=== PATIENT | male | born 1965 | race Two or more races ===

== ENCOUNTER → 2020-06-27 10:53 | Outpatient (REF) | payer OTHER, SELFPAY ==
--- NOTE | 2020-06-27 11:00 | CA_ITS ---
Acquisition Time: 2020-06-27 11:09:14 Total Exercise Time: 00:08:54 Test Indications: cp Medications: see chart Protocol: SUZI Max HR: 173 BPM 104% of Pred: 165 BPM Max BP: 138/070 mmHG Max Work Load: 10.1 METS Exercise stress echo using Suzi protocol total of 8 minutes 54 seconds. Achieving a work level of maximum METS 10.1. with a maximal heart rate of 173. patient tolerated well denies any anginal symptoms. EKG without any arrhythmias, no ischemic changes in peak exercise or in recovery. EHO images taken at rest and immediatly after peak HR reached. Definity contrast used. Normotensive response to exercise. Test reviewed with Dr. Hobbs Referred By: Bernard Mendoza Overread By: Layla Diaz
== END ==
LOC: HO.CARD 10:53
PROVIDERS: Visit Provider Internal Medicine Cardiovascular Disease
DX: R07.9 Chest pain, unspecified (principal)
CPT/HCPCS: 93350; Q9957

== ENCOUNTER 2020-10-24 10:06 | Outpatient (REF) | payer OTHER, SELFPAY ==
[2020-10-24 11:27] LABS: Cholesterol 204 mg/dL; HDL Cholesterol 56 mg/dL; LDL Cholesterol Calculated 130 mg/dl; Triglycerides 94 mg/dL
== END 2020-10-24 10:07 | disposition home or self-care (01) ==
LOC: HO.LAB 10:06
PROVIDERS: PCP Internal Medicine; Visit Provider Internal Medicine Cardiovascular Disease
DX: E78.5 Hyperlipidemia, unspecified (principal)
CPT/HCPCS: 36415; 80061

== ENCOUNTER → 2020-10-29 08:59 | Outpatient (BNVA) | payer OTHER, SELFPAY | PROVIDERS: PCP Internal Medicine; Visit Provider Student in an Organized Health Care Education/Training Program | DX: M54.5 Low back pain (principal); T30.4 Corrosion of unspecified body region, unspecified degree | CPT/HCPCS: 99212 ==

== ENCOUNTER 2020-10-29 09:26 | Emergency (ER) | payer OTHER, SELFPAY ==
[2020-10-29 09:30] VITALS: BP 139/83; PULSE 74; RESP 16; TEMP 36.6; BMI 26.9
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
== END 2020-10-29 10:46 | disposition home or self-care (01) ==
PROVIDERS: Emergency Provider Emergency Medicine; PCP Internal Medicine
DX: T65.891A Toxic effect of other specified substances, accidental (unintentional), initial encounter (principal); T22.411A Corrosion of unspecified degree of right forearm, initial encounter; T32.0 Corrosions involving less than 10% of body surface; Y93.G3 Activity, cooking and baking; L03.113 Cellulitis of right upper limb; Y92.511 Restaurant or cafe as the place of occurrence of the external cause; Y99.0 Civilian activity done for income or pay
CPT/HCPCS: 99283

== ENCOUNTER 2021-04-14 08:55 | Outpatient (REF) | payer OTHER, SELFPAY ==
[2021-04-14 12:55] LABS: MANUAL DIFF FLAG NO
[2021-04-14 13:12] LABS: Basophils Percent Auto 0.2 % (0-2); Eosinophils Absolute Auto 0.1 X10*3/uL (0.0-0.4); Eosinophils Percent Auto 2.8 % (0-4); Hematocrit 42.4 % (42-52); Hemoglobin 14.1 g/dl (14.0-18.0); Imm Gran Abs Auto 0.02 X10*3/uL (0.00-0.03); Imm Gran Pct Auto 0.5 % (0.0-0.4); Lymphocytes Absolute Auto 1.4 X10*3/uL (1.2-4.9); Mean Corpuscular HGB Conc 33.3 g/dl (31.0-36.0); Mean Corpuscular Hemoglobin 29.5 pg (27.0-33.0); Mean Corpuscular Volume 88.7 fL (80-98); Mean Platelet Volume 10.7 fL (9.4-12.4); Monocytes Absolute Auto 0.4 X10*3/uL (0.1-1.2); Monocytes Percent Auto 8.3 % (2-11); Neutrophils Absolute Auto 2.5 X10*3/uL (2.0-8.3); Neutrophils Percent Auto 57.2 % (45-73); Platelet Count 178 X10*3/uL (160-400); Red Blood Count 4.78 X10*6/uL (4.60-5.80); Red Cell Distribution Width 12.7 % (11.0-16.0); White Blood Count 4.4 X10*3/uL (4.8-10.8)
[2021-04-14 13:43] LABS: Alanine Aminotransferase 41 U/L (0-40); Albumin Level 4.3 g/dL (3.5-5.0); Alkaline Phosphatase 61 U/L (39-117); Anion Gap 16 (12-20); Aspartate Amino Transferase 30 U/L (5-37); Bilirubin Total 0.4 mg/dL (0.0-1.0); Blood Urea Nitrogen 15 mg/dL (9-16); Calcium 9.3 mg/dL (8.4-10.2); Carbon Dioxide 22 mmol/L (22-29); Chloride 109 mmol/L (96-108); Estimated Glomerular Filt Rate > 60; Glucose Random 105 mg/dL (60-115); Potassium 4.6 mmol/L (3.3-5.1); Sodium 142 mmol/L (135-145)
== END 2021-04-14 08:56 | disposition home or self-care (01) ==
LOC: HO.LAB 08:55
PROVIDERS: PCP Internal Medicine; Visit Provider Nurse Practitioner
DX: K21.9 Gastro-esophageal reflux disease without esophagitis (principal); Z86.010 Personal history of colon polyps
CPT/HCPCS: 36415; 80053; 85025

== ENCOUNTER 2021-04-20 01:03 | Emergency (ER) | payer OTHER, SELFPAY ==
--- NOTE | ~2021-04-20 | XR_ITS ---
EXAMINATION: XR CHEST CLINICAL INFORMATION: Fever COMPARISON: None TECHNIQUE: Frontal view of the chest was obtained. FINDINGS: Cardiac leads overlie the chest. The lungs are well expanded. Mild bronchial wall thickening noted. There is no focal consolidation, edema, or effusion. No pneumothorax. The cardiomediastinal silhouette is within normal limits. No acute osseous abnormality. XR/XR chest 1V IMPRESSION: No dense consolidation. Bronchial wall thickening can be seen with a small airways process such as asthma or atypical/viral infection.
[2021-04-20 01:22] VITALS: BP 138/88; PULSE 118; RESP 24; TEMP 39.2; O2SAT 96; BMI 24.7
[2021-04-20 01:52] VITALS: BP 140/87; PULSE 110; RESP 20; TEMP 38.2; O2SAT 97
--- NOTE | 2021-04-20 02:00 | ED_ITS ---
HPI - Fever General Chief Complaint: Fever Stated Complaint: Migraine, body aches Time Seen by Provider: 04/20/21 01:48 Source: patient Mode of arrival: ambulatory Limitations: no limitations History of Present Illness HPI Narrative: Patient comes emergency room complaining of fever, chills, body aches, headache since this morning. Patient has tried to take ibuprofen, Tylenol [id number], patient complaining that his symptoms are gradually getting worse. Patient denies neck pain, no coughing, no vomiting or diarrhea, no abdominal pain. Patient states that he has mild dysuria Related Data Home Medications Medication Instructions Recorded Confirmed aspirin 81 mg tablet,delayed 81 mg PO DAILY 10/29/20 10/29/20 release Previous Rx's Medication Instructions Recorded simvastatin 20 mg tablet 20 mg PO BEDTIME #30 tab 06/13/20 cephalexin 500 mg capsule 500 mg PO BID 7 Days #14 cap 10/29/20 doxycycline hyclate 100 mg capsule 100 mg PO BID 7 Days #14 cap 10/29/20 mupirocin 2 % topical ointment 1 appl TOPICAL BID 7 Days #15 g 10/29/20 tizanidine 4 mg tablet 4 mg PO BEDTIME PRN #30 tab 11/28/20 bisacodyl 5 mg tablet,delayed 10 mg PO BEDTIME 2 Days #4 tab 04/14/21 release (Dulcolax (bisacodyl)) famotidine 40 mg tablet (Pepcid) 40 mg PO BEDTIME 30 Days #30 tab 04/14/21 peg 3350-electrolytes 236 240 ml PO Q10M 1 Days #4000 ml 04/15/21 gram-22.74 gram-6.74 gram-5.86 gram solution (Golytely) acetaminophen 650 mg 650 mg PO Q8H PRN #20 tab 04/20/21 tablet,extended release (Tylenol 8 Hour) azithromycin 250 mg tablet 250 mg PO DAILY #4 tab 04/20/21 Allergies Allergy/AdvReac Type Severity Reaction Status Date / Time raw vegetable [RAW VEGETABLE] Allergy Intermediate ITCHING Verified 10/29/20 09:03 Environmeental Allergies Allergy Unknown redness Uncoded 04/25/18 00:00 (Poll and itching Raw Veggies Allergy Unknown itching Uncoded 04/25/18 00:00 Review of Systems Review of Systems: Constitutional : No Weight loss, complaining of urine chills, generalized fatigue and generalized malaise ENT/Mouth : No Hearing loss, No Ear Pain, No Nasal Congestion, No Sinus Pain, No Hoarseness, No sore throat, No Rhinorrhea, No Swallowing Difficulty Eyes: No Eye Pain, No Swelling, No Redness, No Foreign Body, No Discharge, No Vision Changes Cardiovascular : No Chest Pain, No SOB, No Dyspnea on Exertion, No Orthopnea, No Edema, No Palpitations Respiratory : No Cough, No Sputum, No Wheezing, No Smoke Exposure, No Dyspnea Gastrointestinal : No Nausea, No Vomiting, No Diarrhea, No Constipation, No abdominal Pain, No Hematochezia, No Melena Genitourinary : no irregular bleeding, No Dysuria, No Urinary Frequency, No Hematuria, No Urinary Incontinence, No Urgency, No Flank Pain, No Urinary Flow Changes, No Hesitancy Musculoskeletal : Diffuse body aches Skin : No Skin Lesions, No rash Neuro : No Weakness, No Numbness, No Paresthesias, No Loss of Consciousness, No Dizziness, No Headache Psych : No Anxiety/Panic, No Depression, No SI/HI/AH/VH, No Social Issues, Heme/Lymph: No Bruising, No Bleeding,No Lymphadenopathy Endocrine : No Polyuria, No Polydipsia, No Temperature Intolerance PMFSH Past Medical History Medical History BPH (benign prostatic hyperplasia) Carpal tunnel syndrome Cholelithiasis Erectile dysfunction GERD (gastroesophageal reflux disease) Hypercholesterolemia Low back pain at multiple sites Mixed incontinence Obstructive sleep apnea Vitamin D deficiency Surgical History H/O carpal tunnel repair Hx of inguinal hernia repair Social History Social History Alcohol intake: current Advance Directives: No Advance Directives Information Provided: Yes Physical Exam Vital Signs: Vital Signs: Last Vital Signs Temp 100.7 F H 04/20/21 01:52 Pulse 110 H 04/20/21 01:52 Resp 20 04/20/21 01:52 BP 140/87 H 04/20/21 01:52 Pulse Ox 97 04/20/21 01:52 Body Mass Index 24.7 Const: Other: Appearance: Alert. Oriented X3. No acute distress. Eyes: Pupils equal, round and reactive to light. ENT: Pharynx normal. Neck: Normal inspection. Neck supple. No lymph nodes noted. No crepitus CVS: Normal heart rate and rhythm. Pulses normal. Normal S1 and S2 Respiratory: No respiratory distress. Breath sounds normal. No Wheezing. No rales Abdomen: Soft and nontender. No rigidity. No distention. good BS x4 Skin: Skin warm and dry. Normal skin color. Normal skin turgor. Extremities: No lower extremity edema. No Lacerations. No Rash Neuro: Oriented X 3. No motor deficit. No sensory deficit. Moving all extermities. No slurred speech. Course Course Course Narrative: I discussed the labs and imaging with the patient, it is likely that the patient has bronchitis which may be causing his symptoms. Given the severity of the symptoms will go ahead and start with antibiotics. First dose given here in the emergency room, azithromycin. MDM - Fever Lab Data Result diagrams: 04/20/21 02:03 04/20/21 02:03 Labs: Lab Results 04/20/21 04/20/21 04/20/21 Range/Units 02:03 02:03 02:03 WBC 11.2 H (4.8-10.8) X10*3/uL RBC 4.64 (4.60-5.80) X10*6/uL Hgb 14.1 (14.0-18.0) g/dl Hct 40.6 L (42-52) % MCV 87.5 (80-98) fL MCH 30.4 (27.0-33.0) pg MCHC 34.7 (31.0-36.0) g/dl RDW 13.0 (11.0-16.0) % Plt Count 168 (160-400) X10*3/uL MPV 10.9 (9.4-12.4) fL Immature Gran % (Auto) 0.4 (0.0-0.4) % Neut % (Auto) 87.3 H (45-73) % Lymph % (Auto) 5.1 L (20-40) % Culberson % (Auto) 7.0 (2-11) % Eos % (Auto) 0.1 (0-4) % Baso % (Auto) 0.1 (0-2) % Lymph # (Auto) 0.6 L (1.2-4.9) X10*3/uL [place] # (Auto) 0.8 (0.1-1.2) X10*3/uL Eos # (Auto) 0.0 (0.0-0.4) X10*3/uL Baso # (Auto) 0.0 (0.0-0.2) X10*3/uL Abs Immat Gran (auto) 0.05 H (0.00-0.03) X10*3/uL Absolute Neuts (auto) 9.8 H (2.0-8.3) X10*3/uL Absolute Nucleated RBC 0.000 (0.0-0.012) X10*3/uL Nucleated RBC % (auto) 0.0 (0.0-0.2) /100WBC Sodium 138 (135-145) mmol/L Potassium 3.6 D (3.3-5.1) mmol/L Chloride 103 (96-108) mmol/L Carbon Dioxide 24 (22-29) mmol/L Anion Gap 15 (12-20) BUN 14 (9-16) mg/dL Creatinine 0.97 (0.5-1.4) mg/dL Estim Creat Clear Calc 77.6 Estimated GFR > 60 Random Glucose 126 H (60-115) mg/dL Lactic Acid 0.7 (0.5-2.0) mmol/L Calcium 9.4 (8.4-10.2) mg/dL Total Bilirubin 1.4 H (0.0-1.0) mg/dL Direct Bilirubin 0.6 H (0.0-0.5) mg/dL AST 28 (5-37) U/L ALT 40 (0-40) U/L Alkaline Phosphatase 66 (39-117) U/L Total Protein 7.4 (6.5-8.0) g/dL Albumin 4.5 (3.5-5.0) g/dL Urine Color Urine Appearance Urine pH (5.0-8.0) Ur Specific Shallow[place] (1.005-1.025) Urine Protein (NEG-TRACE) MG/DL Urine Glucose (UA) (NEG) MG/DL Urine Ketones (NEG) MG/DL Urine Blood (NEG) Urine Nitrite (NEG) Ur Leukocyte Esterase (NEG) COVID-19 (ROSELIA) (Negative) COVID-19 Clin Com 04/20/21 04/20/21 Range/Units 02:04 03:58 WBC (4.8-10.8) X10*3/uL RBC (4.60-5.80) X10*6/uL Hgb (14.0-18.0) g/dl Hct (42-52) % MCV (80-98) fL MCH (27.0-33.0) pg MCHC (31.0-36.0) g/dl RDW (11.0-16.0) % Plt Count (160-400) X10*3/uL MPV (9.4-12.4) fL Immature Gran % (Auto) (0.0-0.4) % Neut % (Auto) (45-73) % Lymph % (Auto) (20-40) % Culberson % (Auto) (2-11) % Eos % (Auto) (0-4) % Baso % (Auto) (0-2) % Lymph # (Auto) (1.2-4.9) X10*3/uL [place] # (Auto) (0.1-1.2) X10*3/uL Eos # (Auto) (0.0-0.4) X10*3/uL Baso # (Auto) (0.0-0.2) X10*3/uL Abs Immat Gran (auto) (0.00-0.03) X10*3/uL Absolute Neuts (auto) (2.0-8.3) X10*3/uL Absolute Nucleated RBC (0.0-0.012) X10*3/uL Nucleated RBC % (auto) (0.0-0.2) /100WBC Sodium (135-145) mmol/L Potassium (3.3-5.1) mmol/L Chloride (96-108) mmol/L Carbon Dioxide (22-29) mmol/L Anion Gap (12-20) BUN (9-16) mg/dL Creatinine (0.5-1.4) mg/dL Estim Creat Clear Calc Estimated GFR Random Glucose (60-115) mg/dL Lactic Acid (0.5-2.0) mmol/L Calcium (8.4-10.2) mg/dL Total Bilirubin (0.0-1.0) mg/dL Direct Bilirubin (0.0-0.5) mg/dL AST (5-37) U/L ALT (0-40) U/L Alkaline Phosphatase (39-117) U/L Total Protein (6.5-8.0) g/dL Albumin (3.5-5.0) g/dL Urine Color YELLOW Urine Appearance CLEAR Urine pH 6.0 (5.0-8.0) Ur Specific [place] 1.025 (1.005-1.025) Urine Protein TRACE (NEG-TRACE) MG/DL Urine Glucose (UA) NEG (NEG) MG/DL Urine Ketones >=80 (NEG) MG/DL Urine Blood NEG (NEG) Urine Nitrite NEG (NEG) Ur Leukocyte Esterase NEG (NEG) COVID-19 (ROSELIA) Negative (Negative) COVID-19 Clin Com See Note Imaging Data Chest x-ray: Radiologist's impression: Cardiac leads overlie the chest. The lungs are well expanded. Mild bronchial wall thickening noted. There is no focal consolidation, edema, or effusion. No pneumothorax. The cardiomediastinal silhouette is within normal limits. No acute osseous abnormality. XR/XR chest 1V IMPRESSION: No dense consolidation. Bronchial wall thickening can be seen with a small airways process such as asthma or atypical/viral infection. Discharge Plan Discharge Clinical Impression: Bronchitis Patient Disposition: Home, Self-Care Instructions: Acute Bronchitis (ED) Additional Instructions: Please follow-up with your primary care physician tomorrow. If you have any worsening or new symptoms, please return to the emergency room or call 911 Prescriptions: New azithromycin 250 mg tablet 250 mg PO DAILY Qty: 4 RF: 0 acetaminophen [Tylenol 8 Hour] 650 mg tablet extended release 650 mg PO Q8H PRN (Reason: fever or pain) Qty: 20 RF: 0 No Action simvastatin 20 mg tablet 20 mg PO BEDTIME Qty: 30 RF: 11 tizanidine 4 mg tablet 4 mg PO BEDTIME PRN (Reason: muscle spasticity) Qty: 30 RF: 3 peg 3350-electrolytes [Golytely] 236-22.74-6.74 -5.86 gram recon soln 240 ml PO Q10M 1 Days Qty: 4000 RF: 0 doxycycline hyclate 100 mg capsule 100 mg PO BID 7 Days Qty: 14 RF: 0 cephalexin 500 mg capsule 500 mg PO BID 7 Days Qty: 14 RF: 0 mupirocin 2 % ointment 1 appl topical BID 7 Days Qty: 15 RF: 0 famotidine [Pepcid] 40 mg tablet 40 mg PO BEDTIME 30 Days Qty: 30 RF: 6 bisacodyl [Dulcolax (bisacodyl)] 5 mg tablet,delayed release (DR/EC) 10 mg PO BEDTIME 2 Days Qty: 4 RF: 0 aspirin 81 mg tablet,delayed release (DR/EC) 81 mg PO DAILY RF: 0
[2021-04-20] MEDS: 0.9 % Sodium Chloride 1,000 ML 999 ML IVCONT (02:11)
[2021-04-20 02:18] LABS: Basophils Percent Auto 0.1 % (0-2); Eosinophils Percent Auto 0.1 % (0-4); Hematocrit 40.6 % (42-52); Hemoglobin 14.1 g/dl (14.0-18.0); Imm Gran Abs Auto 0.05 X10*3/uL (0.00-0.03); Imm Gran Pct Auto 0.4 % (0.0-0.4); Lymphocytes Absolute Auto 0.6 X10*3/uL (1.2-4.9); Lymphocytes Percent Auto 5.1 % (20-40); MANUAL DIFF FLAG NO; Mean Corpuscular HGB Conc 34.7 g/dl (31.0-36.0); Mean Corpuscular Hemoglobin 30.4 pg (27.0-33.0); Mean Corpuscular Volume 87.5 fL (80-98); Mean Platelet Volume 10.9 fL (9.4-12.4); Monocytes Absolute Auto 0.8 X10*3/uL (0.1-1.2); Neutrophils Absolute Auto 9.8 X10*3/uL (2.0-8.3); Neutrophils Percent Auto 87.3 % (45-73); Platelet Count 168 X10*3/uL (160-400); Red Blood Count 4.64 X10*6/uL (4.60-5.80); White Blood Count 11.2 X10*3/uL (4.8-10.8)
[2021-04-20 02:36] LABS: Lactic Acid 0.7 mmol/L (0.5-2.0)
[2021-04-20 02:36] LABS: COVID-19 Test Negative (Negative)
[2021-04-20] MEDS: Acetaminophen 325 MG TABLET 650 MG PO (02:39)
[2021-04-20] MEDS: Ketorolac Tromethamine 15 MG/ML VIAL 30 MG IVPUSH (02:39)
[2021-04-20 02:42] LABS: Alanine Aminotransferase 40 U/L (0-40); Albumin Level 4.5 g/dL (3.5-5.0); Alkaline Phosphatase 66 U/L (39-117); Anion Gap 15 (12-20); Aspartate Amino Transferase 28 U/L (5-37); Bilirubin Direct 0.6 mg/dL (0.0-0.5); Bilirubin Total 1.4 mg/dL (0.0-1.0); Blood Urea Nitrogen 14 mg/dL (9-16); Calcium 9.4 mg/dL (8.4-10.2); Carbon Dioxide 24 mmol/L (22-29); Chloride 103 mmol/L (96-108); Creatinine Clr Calc Pharmacy 77.6; Estimated Glomerular Filt Rate > 60; Glucose Random 126 mg/dL (60-115); Potassium 3.6 mmol/L (3.3-5.1); Sodium 138 mmol/L (135-145); Total Protein 7.4 g/dL (6.5-8.0)
[2021-04-20 04:06] LABS: Appearance Urine CLEAR; Color Urine YELLOW; Glucose Urine UA NEG (NEG); Leukocyte Esterase Urine NEG (NEG); Nitrite Urine NEG (NEG); Specific Gravity - Urine 1.025 (1.005-1.025); Urine Blood NEG (NEG); Urine Ketones >=80 MG/DL (NEG); Urine Protein TRACE MG/DL (NEG-TRACE)
[2021-04-20] MEDS: Azithromycin 500 MG TABLET PO (05:25)
== END 2021-04-20 05:35 | disposition home or self-care (01) ==
PROVIDERS: Emergency Provider Emergency Medicine
DX: J40 Bronchitis, not specified as acute or chronic (principal); R50.9 Fever, unspecified; Z79.82 Long term (current) use of aspirin; Z79.899 Other long term (current) drug therapy; Z20.822 Contact with and (suspected) exposure to COVID-19
CPT/HCPCS: 36415; 71045; 80048; 80076; 81003; 83605; 85025; 87040; 87635; 96365; 96375; 99284; J1885

== ENCOUNTER 2021-06-11 07:45 | Outpatient (REF) | payer OTHER, SELFPAY ==
--- NOTE | ~2021-06-11 | US_ITS ---
EXAMINATION: US ABDOMEN COMPLETE CLINICAL INFORMATION: Abnormal findings of blood chemistry. Cholelithiasis. COMPARISON: Ultrasound abdomen 12/28/2016 and 08/08/2012. TECHNIQUE: Real-time imaging of the abdominal viscera. FINDINGS: PANCREAS: Not well visualized due to bowel gas ABDOMINAL AORTA: The midabdominal aorta is not well visualized. The proximal and distal abdominal aorta is normal in caliber. INFERIOR VENA CAVA: Visualized portions are normal. LIVER: Normal. The liver is normal in size. The liver contour is normal. Parenchymal echogenicity is normal. No focal hepatic lesion. There is no intrahepatic biliary duct dilatation seen. GALLBLADDER: The gallbladder is upper normal in size measuring 9.2 x 2.8 x 4.5 cm in dimension.. Multiple mobile gallstones are present. No evidence of gallbladder wall thickening or pericholecystic fluid. COMMON BILE DUCT: Normal in caliber measuring 0.5 cm in diameter. RIGHT KIDNEY: There is a small 4 mm cyst in the lower pole. No hydronephrosis or renal calculi. The kidney measures 10.6 cm in maximum dimension. LEFT KIDNEY: Normal. No hydronephrosis. No renal calculi or focal parenchymal lesions. The kidney measures 10.9 cm in maximum dimension. SPLEEN: Normal. The spleen measures 10.9 cm in maximum dimension. FREE FLUID: None. US/US abdomen complete IMPRESSION: Upper normal-size gallbladder and gallstones. This is similar to previous exam. Limited visualization of the pancreas. Small right renal cyst.
== END 2021-06-11 07:46 | disposition home or self-care (01) ==
LOC: HO.US 07:45
PROVIDERS: Visit Provider Internal Medicine
DX: K80.20 Calculus of gallbladder without cholecystitis without obstruction (principal); R79.89 Other specified abnormal findings of blood chemistry
CPT/HCPCS: 76700

== ENCOUNTER 2021-06-12 12:27 | Outpatient (REF) | payer OTHER, SELFPAY ==
--- NOTE | ~2021-06-12 | XR_ITS ---
EXAMINATION: XR knee LT 3V CLINICAL INFORMATION: Pain COMPARISON: None available at the time of this dictation. TECHNIQUE: frontal, lateral, tunnel and patella sunrise views FINDINGS: BONES: No fracture or dislocation is present. JOINTS: Narrowing of joint spaces, irregularity of the articular surfaces especially the lateral femoral condyle, and developed osteophytes from the edges of articular surfaces suggest degenerative osteoarthritis. 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
== END 2021-06-12 12:28 | disposition home or self-care (01) ==
LOC: HO.XRAY 12:27
PROVIDERS: PCP Internal Medicine; Visit Provider Nurse Practitioner Family
DX: M25.562 Pain in left knee (principal); M54.50 Low back pain, unspecified; E78.00 Pure hypercholesterolemia, unspecified; E55.9 Vitamin D deficiency, unspecified; Z87.891 Personal history of nicotine dependence; J30.2 Other seasonal allergic rhinitis; Z91.018 Allergy to other foods; Z79.899 Other long term (current) drug therapy
CPT/HCPCS: 73562; 99212

== ENCOUNTER 2021-06-16 08:47 | Day surgery (SDC) | payer OTHER, SELFPAY ==
[2021-06-11 09:32] VITALS: BMI 26.7
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
--- NOTE | 2021-06-16 09:28 | MHC.SHP ---
Pre-Procedural Eval Section A Date of Service: 06/16/21 Section B Chief Complaint: tubular adenoma of colon Relevant Family History (Specify if Yes): No Relevant Social History: None Present Medications: see Short Stay Collaborative assessment Medical History: Significant History (BPH (benign prostatic hyperplasia) Carpal tunnel syndrome Cholelithiasis Erectile dysfunction GERD (gastroesophageal reflux disease) Hypercholesterolemia Low back pain at multiple sites Mixed incontinence Obstructive sleep apnea Vitamin D deficiency) History of Previous Operations: Relevant previous surgery/procedure and date(s) (H/O carpal tunnel repair Hx of colonoscopy Hx of inguinal hernia repair) Allergies: Allergies Allergy/AdvReac Type Severity Reaction Status Date / Time raw vegetable [RAW VEGETABLE] Allergy Intermediate ITCHING Verified 06/12/21 12:46 Seasonal Allergies Allergy Intermediate Nasal Verified 06/12/21 12:46 congestion Review of Systems Sugical H&P ROS: Negative: Constitution, Cardiovascular, Respiratory, Neurological, Psychiatric, Hem-Onc, Allergic/Immunologic, Gastrointestinal, Genitourinary, Musculoskeletal, Integumentary, Endocrine and Eyes/Ears/Nose/Throat Exam Surgical H&P Exam: Normal: HEENT, Normal: Heart, Normal: Lungs, Normal: Extremities, Normal: Abdomen, Normal: Skin and Normal: Neurological Plan Diagnosis/Plan: Unchanged I have reviewed the history and physical and performed a pertinent physical examination on my patient. No changes have occurred unless specified.
--- NOTE | 2021-06-16 10:30 | PM.OP ---
Brief Operative Note Date of Service: 06/16/21 Pre-op diagnosis: hx of polyps Post-op diagnosis: same Procedure: see op note Surgeon: Tate Wheeler MD Anesthesia: MAC Was an Pearl Glue Operator used for this Procedure?: No Estimated blood loss (mL): 0 Condition: stable Disposition: PACU
--- NOTE | 2021-06-16 10:30 | W.PM.OPN ---
Operative Note Operative Note Date of Service: 06/16/21 Narrative: Operative Information Procedure Description: Colonoscopy COLONOSCOPY Instrument: Olympus variable stiffness pediatric scope 190L Colonoscopy Monitoring: Vital signs and clinical assessment, continuous EKG monitoring, Pulse oximetry, Carbon Dioxide monitoring and blood pressure monitoring were done throughout the procedure. Colon withdrawal time was 6 minutes. Procedure: The patient was placed in the left lateral decubitis position and pre-procedure medications were administered. After a digital rectal examination of the ano-rectum, the video colonoscope was inserted into the rectum and advanced through the colon to the cecum/TI. The colonoscope was slowly withdrawn in a retrograde panoramic fashion and the colon mucosa was carefully examined including a retroflexed view of the rectum. Findings and interventions are described below. Procedure Difficulty: easy Findings: Terminal Ileum-normal Cecum:normal Ascending Colon: normal Transverse Colon -normal Descending Colon:normal Sigmoid Colon: scattered diverticula Rectum: Retroflexion with medium sized internal hemorrhoids, grade II Anorectum - normal Colon preparation: [place] Bowel Preparation Scale Right colon; 2 Transverse colon: 1 Left colon; 1 (0 = Unprepared colon segment with mucosa not seen due to solid stool that cannot be cleared. 1 = Portion of mucosa of the colon segment seen, but other areas of the colon segment not well seen due to staining, residual stool and/or opaque liquid. 2 = Minor amount of residual staining, small fragments of stool and/or opaque liquid, but mucosa of colon segment seen well. 3 = Entire mucosa of colon segment seen well with no residual staining, small fragments of stool or opaque liquid) Impression and Post Procedure Diagnosis: internal hemorrhoids diverticular disease Plan: High fiber diet leaflet Avoid straining at stool, epsom salts and sitz bath, anusol supps or cream Repeat Colonoscopy in 1-2 years due to prep or earlier if clinically indicated, carefully review prep instructions for next time Above findings were reviewed with the patient and relevant handouts were provided if indicated.
[2021-06-16 10:39] VITALS: BP 108/73; PULSE 67; RESP 16; TEMP 36.1; O2SAT 100
[2021-06-16 10:54] VITALS: BP 134/86; PULSE 66; RESP 16; TEMP 36.1; O2SAT 100
--- NOTE | 2021-06-16 12:55 | HO.POSTANES ---
Post Anesthesia Evaluation Post Anesthesia Evaluation Vital Signs: Vital Signs Temp Pulse Resp BP Pulse Ox 06/16/21 10:54 97 F 66 16 134/86 100 06/16/21 10:39 97 F 67 16 108/73 100 Anesthesia: Monitored Mental Status: Awake Pain Control: Satisfactory Nausea/Vomiting: None Hydration: Adequate Anesthesia-Related Issues: No Anes. Related Issues
== END 2021-06-16 11:45 | disposition home or self-care (01) ==
PROVIDERS: Visit Provider Internal Medicine Gastroenterology
PROC: 0DJD8ZZ Inspection of Lower Intestinal Tract, Via Natural or Artificial Opening Endoscopic (ICD-10-PCS; CPT 45378; principal; 2021-06-16 10:00)
DX: Z12.11 Encounter for screening for malignant neoplasm of colon (principal); K57.30 Diverticulosis of large intestine without perforation or abscess without bleeding; K64.1 Second degree hemorrhoids; Z86.010 Personal history of colon polyps
CPT/HCPCS: 45378

== ENCOUNTER 2021-06-20 07:23 | Outpatient (REF) | payer OTHER, SELFPAY ==
--- NOTE | ~2021-06-20 | MR_ITS ---
EXAMINATION: MR LUMBAR SPINE WITHOUT CONTRAST CLINICAL INFORMATION: Lower back pain with bending. Difficulty standing up. Left leg numbness, toe tingling/paresthesias. COMPARISON: Lumbar spine radiographs dated 04/25/2020 TECHNIQUE: MRI of the lumbar spine was obtained using routine sequences without contrast. FINDINGS: VERTEBRAL BODIES AND PARASPINAL STRUCTURES: Normal vertebral body alignment. The lumbar lordosis is maintained. No acute fracture or subluxation. No loss of vertebral body height. Loss of intervertebral disc height with disc desiccation at L3-S1. Decreased T1/T2 marrow signal throughout the visualized osseous structures, which can be seen in the setting of marrow reconversion. This can be seen in response to physiologic stimuli such as obesity, cigarette smoking, and heavy athletic training or a pathologic condition such as chronic hemolytic anemia and marrow replacing disorders. No marrow edema to suggest acute osseous injury. The visualized paraspinal soft tissues are unremarkable. CONUS MEDULLARIS AND CAUDA EQUINA: Normal, terminating at the level of L1. SPINAL LEVELS: T12-L1: No significant disc bulge. No central canal or neural foraminal stenosis. L1-L2: No significant disc bulge. No central canal or neural foraminal stenosis. L2-L3: Shallow disc bulge with bilateral facet arthropathy causing mild bilateral neural foraminal stenosis. L3-L4: Broad-based disc bulge with a shallow posterior central disc protrusion as well as bilateral facet arthropathy causing minimal central canal as well as mild bilateral neural foraminal stenosis. L4-L5: Broad-based disc bulge, slightly asymmetric to the right with bilateral facet arthropathy causing minimal central canal as well as mild bilateral neural foraminal stenosis. L5-S1: Shallow broad-based disc bulge with posterior annular fissuring and bilateral facet arthropathy causing mild bilateral neural foraminal stenosis. MR/MR lumbar spine wo con IMPRESSION: 1. No acute fracture or subluxation. Decreased T1/T2 marrow signal throughout the visualized osseous structures, which can be seen in the setting of marrow reconversion. This can be seen in response to physiologic stimuli such as obesity, cigarette smoking, and heavy athletic training or a pathologic condition such as chronic hemolytic anemia and marrow replacing disorders. 2. Mild broad-based disc bulge at L3-L4 with a shallow posterior central disc protrusion and bilateral facet arthropathy which causes minimal central canal and mild bilateral neural foraminal stenosis. 3. Broad-based disc bulge at L4-L5 which is slightly asymmetric to the right. Along with bilateral facet arthropathy, this causes minimal central canal and mild bilateral neural foraminal stenosis. 4. Shallow disc bulges at L2-L3 and L5-S1 with bilateral facet arthropathy causing mild bilateral neural foraminal stenosis.
== END 2021-06-20 07:24 | disposition home or self-care (01) ==
LOC: HO.MRI 07:23
PROVIDERS: Visit Provider Nurse Practitioner Family
DX: M54.50 Low back pain, unspecified (principal)
CPT/HCPCS: 72148

== ENCOUNTER → 2021-07-08 09:39 | Outpatient (BNVA) | payer OTHER, SELFPAY | PROVIDERS: PCP Internal Medicine; Visit Provider Nurse Practitioner | DX: K21.9 Gastro-esophageal reflux disease without esophagitis (principal); D12.6 Benign neoplasm of colon, unspecified | CPT/HCPCS: 99212 ==

== ENCOUNTER 2021-08-04 08:27 | Outpatient (REF) | payer OTHER, SELFPAY ==
--- NOTE | ~2021-08-04 | XR_ITS ---
EXAMINATION: XR HIP, LEFT CLINICAL INFORMATION: Primary osteoarthritis of the left hip COMPARISON: None TECHNIQUE: Two views of the left hip. FINDINGS: There is no fracture or dislocation. The femoral head articulates appropriately with its acetabulum. Marginal osteophytes are present at the left hip with sclerosis along the acetabular margin. The left hemipelvis is intact. XR/XR hip LT min 2V IMPRESSION: Mild degenerative changes of the left hip.
== END 2021-08-04 08:28 | disposition home or self-care (01) ==
LOC: HO.XRAY 08:27
PROVIDERS: PCP Internal Medicine; Visit Provider Anesthesiology
DX: M16.12 Unilateral primary osteoarthritis, left hip (principal); M47.816 Spondylosis without myelopathy or radiculopathy, lumbar region; G89.4 Chronic pain syndrome; E55.9 Vitamin D deficiency, unspecified; Z87.891 Personal history of nicotine dependence; J30.2 Other seasonal allergic rhinitis; Z91.018 Allergy to other foods
CPT/HCPCS: 73502; 99202

== ENCOUNTER → 2021-08-18 16:25 | Outpatient (BNVA) | payer OTHER, SELFPAY | PROVIDERS: PCP Internal Medicine; Visit Provider Anesthesiology | DX: M47.816 Spondylosis without myelopathy or radiculopathy, lumbar region (principal); M16.12 Unilateral primary osteoarthritis, left hip; G89.4 Chronic pain syndrome | CPT/HCPCS: 99212 ==

== ENCOUNTER → 2021-09-16 08:57 | Outpatient (BNVA) | payer OTHER, SELFPAY | PROVIDERS: PCP Internal Medicine; Visit Provider Nurse Practitioner Family | DX: M25.562 Pain in left knee (principal); M54.50 Low back pain, unspecified | CPT/HCPCS: 99212 ==

== ENCOUNTER → 2021-10-07 10:50 | Outpatient (BNVA) | payer OTHER, SELFPAY | PROVIDERS: PCP Internal Medicine; Referring Provider Internal Medicine; Visit Provider Nurse Practitioner | DX: K21.9 Gastro-esophageal reflux disease without esophagitis (principal); K80.20 Calculus of gallbladder without cholecystitis without obstruction; D12.6 Benign neoplasm of colon, unspecified | CPT/HCPCS: 99212 ==

== ENCOUNTER 2021-10-21 06:09 | Outpatient (REF) | payer OTHER, SELFPAY ==
--- NOTE | ~2021-10-21 | FL_ITS ---
EXAMINATION: XR FLUOROSCOPY WITH IMAGES CLINICAL INFORMATION: Left hip arthritis COMPARISON: None. TECHNIQUE: Fluoroscopy performed by stick into the. Fluoroscopy time: 0.3 minutes DAP: 5 Gycm2 Images: 1 FINDINGS: Images demonstrate needle placement and contrast injection of the of the left hip joint. FL/FL guidance in treatment room IMPRESSION: Fluoroscopy guidance for pain management procedure.
== END 2021-10-21 06:10 | disposition home or self-care (01) ==
LOC: HO.RADIR 06:09
PROVIDERS: Visit Provider Anesthesiology
DX: M16.12 Unilateral primary osteoarthritis, left hip (principal); M47.816 Spondylosis without myelopathy or radiculopathy, lumbar region; G89.4 Chronic pain syndrome
CPT/HCPCS: 20610; J3300; Q9967

== ENCOUNTER → 2021-11-19 10:04 | Outpatient (BNVA) | payer OTHER, SELFPAY | PROVIDERS: PCP Internal Medicine; Visit Provider Anesthesiology | DX: M47.816 Spondylosis without myelopathy or radiculopathy, lumbar region (principal); M16.12 Unilateral primary osteoarthritis, left hip; G89.4 Chronic pain syndrome | CPT/HCPCS: 99212 ==

== ENCOUNTER 2022-01-01 09:14 | Outpatient (REF) | payer OTHER, SELFPAY ==
[2022-01-01 09:41] LABS: MANUAL DIFF FLAG NO
[2022-01-01 10:04] LABS: Basophils Percent Auto 0.5 % (0-2); Eosinophils Absolute Auto 0.2 X10*3/uL (0.0-0.4); Eosinophils Percent Auto 3.7 % (0-4); Hemoglobin 14.2 g/dl (14.0-18.0); Imm Gran Abs Auto 0.01 X10*3/uL (0.00-0.03); Imm Gran Pct Auto 0.2 % (0.0-0.4); Lymphocytes Absolute Auto 1.4 X10*3/uL (1.2-4.9); Lymphocytes Percent Auto 35.5 % (20-40); Mean Corpuscular Hemoglobin 29.5 pg (27.0-33.0); Mean Corpuscular Volume 89.4 fL (80.0-98.0); Mean Platelet Volume 10.6 fL (9.4-12.4); Monocytes Absolute Auto 0.4 X10*3/uL (0.1-1.2); Monocytes Percent Auto 10.3 % (2-11); Neutrophils Percent Auto 49.8 % (45-73); Platelet Count 184 X10*3/uL (160-400); Red Blood Count 4.81 X10*6/uL (4.60-5.80); Red Cell Distribution Width 12.6 % (11.0-16.0); White Blood Count 4.1 X10*3/uL (4.8-10.8)
[2022-01-01 10:55] LABS: Estimated Average Glucose 111 mg/dL; Hemoglobin A1c % 5.5 %
[2022-01-01 11:00] LABS: Appearance Urine CLEAR; Color Urine YELLOW; Glucose Urine UA NEG (NEG); Leukocyte Esterase Urine NEG (NEG); Nitrite Urine NEG (NEG); Specific Gravity - Urine 1.025 (1.005-1.025); Urine Blood NEG (NEG); Urine Ketones NEG (NEG); Urine Protein NEG (NEG-TRACE)
[2022-01-01 11:01] LABS: Alanine Aminotransferase 43 U/L (0-40); Albumin Level 4.2 g/dL (3.5-5.0); Alkaline Phosphatase 56 U/L (39-117); Anion Gap 12 (12-20); Aspartate Amino Transferase 36 U/L (5-37); Bilirubin Total 0.8 mg/dL (0.0-1.0); Blood Urea Nitrogen 17 mg/dL (9-16); Calcium 9.4 mg/dL (8.4-10.2); Carbon Dioxide 29 mmol/L (22-29); Chloride 104 mmol/L (96-108); Cholesterol 201 mg/dL; Estimated Glomerular Filt Rate > 60; Glucose Random 98 mg/dL (60-115); HDL Cholesterol 48 mg/dL; LDL Cholesterol Calculated 135 mg/dl; Potassium 4.9 mmol/L (3.3-5.1); Sodium 140 mmol/L (135-145); Total Protein 6.9 g/dL (6.5-8.0); Triglycerides 94 mg/dL
[2022-01-01 11:24] LABS: Free T4 (Free Thyroxine) 1.14 ng/dL (0.71-1.85); Prostate Specific Antigen Scr 2.45 ng/mL (<0.05-4.0); Thyroid Stimulating Hormone 1.27 uIU/mL (0.32-4.0)
[2022-01-01 11:31] LABS: Folate 13.3 ng/mL (> or = 4.0); Vitamin B12 452 pg/mL (200-900)
[2022-01-01 12:46] LABS: Squamous Epithelial Cell Urine TRACE /LPF
[2022-01-01 12:47] LABS: RBC Urine 0 /HPF (0); WBC Urine 0-2 /HPF (0-4)
== END 2022-01-01 09:15 | disposition home or self-care (01) ==
LOC: HO.LAB 09:14
PROVIDERS: PCP Internal Medicine; Visit Provider Internal Medicine
DX: E78.00 Pure hypercholesterolemia, unspecified (principal); R35.0 Frequency of micturition
CPT/HCPCS: 36415; 80053; 80061; 81001; 82607; 82746; 83036; 84153; 84439; 84443; 85025

== ENCOUNTER → 2022-03-16 07:53 | Outpatient (BNVA) | payer OTHER, SELFPAY | PROVIDERS: PCP Internal Medicine; Visit Provider Nurse Practitioner Family | DX: M25.562 Pain in left knee (principal); M47.816 Spondylosis without myelopathy or radiculopathy, lumbar region; M16.12 Unilateral primary osteoarthritis, left hip | CPT/HCPCS: 99212 ==

== ENCOUNTER → 2022-04-07 08:24 | Outpatient (BNVA) | payer OTHER, SELFPAY | PROVIDERS: PCP Internal Medicine; Visit Provider Nurse Practitioner | DX: K21.9 Gastro-esophageal reflux disease without esophagitis (principal); K80.20 Calculus of gallbladder without cholecystitis without obstruction; D12.6 Benign neoplasm of colon, unspecified | CPT/HCPCS: 99212 ==

== ENCOUNTER → 2022-10-06 08:25 | Outpatient (BNVA) | payer OTHER, SELFPAY | PROVIDERS: PCP Internal Medicine; Visit Provider Nurse Practitioner | DX: Z01.818 Encounter for other preprocedural examination (principal); K21.9 Gastro-esophageal reflux disease without esophagitis; R13.10 Dysphagia, unspecified; Z86.010 Personal history of colon polyps | CPT/HCPCS: 99212 ==

== ENCOUNTER 2022-10-21 09:48 | Outpatient (REF) | payer OTHER, SELFPAY ==
--- NOTE | ~2022-10-21 | XR_ITS ---
EXAMINATION: XR BILATERAL HIPS WITH AP PELVIS CLINICAL INFORMATION: Bilateral pain. COMPARISON: Radiograph of the left hip 08/04/2021. TECHNIQUE: AP view of the pelvis and single views of each hip were obtained. FINDINGS: No acute fracture or subluxation. SI joints are symmetric. Pubic symphysis is maintained. Mild to moderate joint space narrowing with subcortical sclerosis and marginal osteophytes in the left greater than right hips. No abnormal soft tissue calcifications. XR/XR hips RENNY min 3V IMPRESSION: 1. No acute fracture or subluxation. 2. Mild to moderate degenerative osteoarthritis of the left greater than right hips.
== END 2022-10-21 09:49 | disposition home or self-care (01) ==
LOC: HO.XRAY 09:48
PROVIDERS: PCP Internal Medicine; Visit Provider Nurse Practitioner Family
DX: M25.552 Pain in left hip (principal)
CPT/HCPCS: 73522

== ENCOUNTER 2023-01-12 08:11 | Outpatient (REF) | payer OTHER, SELFPAY ==
[2023-01-12 08:47] LABS: MANUAL DIFF FLAG NO
[2023-01-12 09:17] LABS: Basophils Percent Auto 0.2 % (0-2); Eosinophils Absolute Auto 0.2 X10*3/uL (0.0-0.4); Eosinophils Percent Auto 3.2 % (0-4); Hematocrit 41.1 % (42.0-52.0); Hemoglobin 13.9 g/dl (14.0-18.0); Imm Gran Abs Auto 0.02 X10*3/uL (0.00-0.03); Imm Gran Pct Auto 0.3 % (0.0-0.4); Lymphocytes Absolute Auto 1.1 X10*3/uL (1.2-4.9); Lymphocytes Percent Auto 17.2 % (20-40); Mean Corpuscular HGB Conc 33.8 g/dl (31.0-36.0); Mean Corpuscular Hemoglobin 29.6 pg (27.0-33.0); Mean Corpuscular Volume 87.6 fL (80.0-98.0); Mean Platelet Volume 10.8 fL (9.4-12.4); Monocytes Absolute Auto 0.7 X10*3/uL (0.1-1.2); Monocytes Percent Auto 10.6 % (2-11); Neutrophils Absolute Auto 4.5 x10*3/uL (2.0-8.3); Neutrophils Percent Auto 68.5 % (45-73); Platelet Count 165 X10*3/uL (160-400); Red Blood Count 4.69 X10*6/uL (4.60-5.80); Red Cell Distribution Width 13.1 % (11.0-16.0); White Blood Count 6.5 X10*3/uL (4.8-10.8)
[2023-01-12 09:55] LABS: Alanine Aminotransferase 40 U/L (0-40); Albumin Level 4.2 g/dL (3.5-5.0); Alkaline Phosphatase 64 U/L (39-117); Anion Gap 9 (12-20); Aspartate Amino Transferase 29 U/L (5-37); Bilirubin Total 0.7 mg/dL (0.0-1.0); Blood Urea Nitrogen 12 mg/dL (9-16); Calcium 8.9 mg/dL (8.4-10.2); Carbon Dioxide 29 mmol/L (22-29); Chloride 105 mmol/L (96-108); Cholesterol 171 mg/dL; Estimated Glomerular Filt Rate > 60; Glucose Random 100 mg/dL (60-115); HDL Cholesterol 47 mg/dL; LDL Cholesterol Calculated 113 mg/dl; Potassium 4.2 mmol/L (3.3-5.1); Sodium 139 mmol/L (135-145); Total Protein 6.6 g/dL (6.5-8.0); Triglycerides 57 mg/dL
[2023-01-12 10:27] LABS: Folate 15.9 ng/mL (> or = 4.0); Free T4 (Free Thyroxine) 1.01 ng/dL (0.71-1.85); Thyroid Stimulating Hormone 1.39 uIU/mL (0.32-4.0); Vitamin B12 555 pg/mL (200-900)
== END 2023-01-12 08:12 | disposition home or self-care (01) ==
LOC: HO.LAB 08:11
PROVIDERS: PCP Internal Medicine; Visit Provider Internal Medicine
DX: Z12.5 Encounter for screening for malignant neoplasm of prostate (principal); E78.00 Pure hypercholesterolemia, unspecified
CPT/HCPCS: 36415; 80053; 80061; 82607; 82746; 84153; 84439; 84443; 85025

== ENCOUNTER 2023-04-06 08:23 | Outpatient (AMB) | payer OTHER, SELFPAY ==
--- NOTE | 2023-04-06 08:39 | MHC.OFFVIS ---
Intake Vital Signs 04/06/23 08:45 Height 5 ft 3 in Weight 157 lb 6.561 oz BMI 27.9 BP 124/84 Blood Pressure Location Rt brachial Position Sitting Pulse 77 Intake Visit Reasons: 6 month follow up Intake Note: Jack presents in the office for GERD as a 6 month follow up. CC: He reports occasional heartburn when drinking soda or acidic foods. Denies other GI symptoms. Welfare Interviewer Required: No Allergies raw vegetable [RAW VEGETABLE] Allergy (Intermediate, Verified 04/06/23 08:47) ITCHING Seasonal Allergies Allergy (Intermediate, Verified 04/06/23 08:47) Nasal congestion HPI 6 month follow up HPI Details Assessment & Plan (1) Pre-op examination: ?Code(s): Z01.818 - Encounter for other preprocedural examination ?Plan: [place] #[place] live He has to drink water when he eats or will have some mild dysphagia. This is worse with coffee and spicy foods. Will get EGD with colonoscopy that is due.? I spent time explaining to him with GERD is any even though he does not have typical heartburn the pain in the epigastric area with swallowing likely is due from acid splashing from his stomach.? He does not remember the GERD lifestyle and diet changes so I print another copy from our clinical nutrition site in [place]ian for him.? This is an important component to managing the GERD along with medications. He continues on his famotidine twice a day. He denies any problems with anesthesia or sedation. He denies any cardiac or respiratory problems. No ID problems. In 2018 he had insufficient prep, the same in 2020 and this is why the yearly repeat.? I will try sending Dulcolax tablets along with the GoLYTELY and emphasized to him the importance of not having any solid foods the ED and may not clear liquid diet prior to the procedure. ROV 6 mos and/or after procedure. (2) GERD (gastroesophageal reflux disease): ?Code(s): K21.9 - Gastro-esophageal reflux disease without esophagitis (3) Odynophagia: ?Code(s): R13.10 - Dysphagia, unspecified (4) Tubular adenoma of colon: ?Comment: 2016 scope repeat 5 years 2020 scope insufficient prep repeat in 2 years ?Code(s): D12.6 - Benign neoplasm of colon, unspecified ? ? ? Medications: New bisacodyl (Dulcola x (bisacodyl)) 10 mg (2 x 5 mg) P O BEDTIME 2 days 4 tabs 0RF ? ? sennosides (senna) 17.2 mg (2 x 8.6 m g) PO BEDTIME 30 d ays 60 caps 3RF co nstipation ? ? Refilled famotidine (Pepcid ) 40 mg? PO BID 30 d ays 60 tabs 6RF K21.9 - Gastro-eso phageal reflux dis ease without esoph agitis COLONOSCOPY Scheduled 04/26/2023 BIOPSY TODAY'S VISIT [place] #declines . He continues to do well on his famotidine and usually only taking it once a day although it is prescriber twice a day case he has breakthrough. He is also doing well with the senna moving his bowels and has no complaints. He is aware that his colonoscopy is upcoming next month but he was unaware of the follow-up appointment scheduled for 05/12 and he will need to time that appointment. Will get this for him. He does not read or write in Pakistani or [place]ian and he has not yet received instructions about how to prep. I give him an instruction sheet with some written information is well and he says he will have his daughter come over and help him with that. Return office visit as already established in April. [facility] Medical History Abnormal MRI BPH (benign prostatic hyperplasia) Carpal tunnel syndrome Cholelithiasis Chronic pain syndrome Erectile dysfunction GERD (gastroesophageal reflux disease) Hypercholesterolemia Mixed incontinence Obstructive sleep apnea Osteoarthritis of left hip Spondylosis of lumbar spine Vitamin D deficiency Surgical History H/O carpal tunnel repair History of endoscopy History of knee surgery Hx of colonoscopy Hx of inguinal hernia repair Social History Household Members: Spouse Housing: House Are you a primary manager respiratory care to a significant other at home: No Do you presently have visiting nurse or other home services: No Alcohol intake: current Alcohol intake frequency: 0-2 drinks per day Alcohol type: beer Patient Tobacco Use Status: Former Tobacco user Quit Date: 1989 Tobacco use type: Cigarette e-Cigarette/Vaping Use: Never Used Second Hand Smoke Exposure: No service: No Current occupational status: 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, stressed) Cognitive needs: No Hearing needs: No Vision needs: No Review of Systems Const Denies fatigue, Denies fever(s), Denies night sweats, Denies poor appetite and Denies weight loss Eyes Details: glasses Reports requires corrective lenses ENT Reports Normal hearing present, Denies dental pain, Denies dysphagia, Denies hearing loss, Denies mouth pain, Denies odynophagia, Denies throat swelling, Denies tongue swelling and Reports other (Dentition adequate) Card Reports no additional complaints Resp Reports no additional complaints GI Denies abdominal pain, Denies melena, Denies bloating, Denies hematochezia, Reports constipation, Denies GI cramping, Denies dysphagia, Denies excessive flatus, Denies early satiety, Reports heartburn, Denies diarrhea, Denies nausea, Denies odynophagia, Denies vomiting and Denies hematemesis Skin/Breast Denies pruritus, Denies lesions, Denies rash and Denies jaundice Neuro Reports Normal hearing present and Denies Abnormal speech present Endo Denies fatigue Aller/Immun Denies throat swelling and Denies tongue swelling Physical Exam Vital Signs: Last Vital Signs Pulse 77 04/06/23 08:45 BP 124/84 04/06/23 08:45 BMI result Body Mass Index 27.9 Const General: cooperative, no acute distress, well developed and well groomed Nutritional Appearance: average body habitus and well nourished Orientation/consciousness: oriented to person, oriented to place and oriented to time Limitations: No language barrier and other limitations (Illiterate) HEENT Head: Yes normocephalic and Yes atraumatic Eyes General: appearance normal, both eyes and all related structures Pupils: Equal, round and reactive pupils present Neck Neck: Yes normal visual inspection and Yes no lymphadenopathy Thyroid: Thyroid normal Resp Effort & Inspection: normal respiratory effort and able to speak in complete sentences Auscultation: clear to auscultation bilaterally Cardio Rate: regular rate Rhythm: regular rhythm Heart sounds: Normal, physiologic split S2 sound present Peripheral pulses: radial pulses present and posterior tibial pulses present GI Inspection: No distended and No Abdominal panniculus present Palpation (GI): Soft to palpation, nontender, no guarding, not rigid and No hepatosplenomegaly present Percussion: Yes normal to percussion Auscultation: normal bowel sounds Rectal Exam - Male: Yes deferred Skin General skin exam: no rashes or lesions noted, turgor normal, skin not dry, no jaundice, No spider nevi and no striae Rashes: no rashes Nails: normal Neuro General: oriented to person, oriented to place and oriented to time Cranial nerves: Yes Equal, round and reactive pupils present and Yes Normal hearing present Speech: No Abnormal speech present Extrem General: Yes normal to inspection, No clubbing, No cyanosis and No edema Psych Appearance: grossly normal and well kempt Mental Status: mental status grossly normal Speech and movement: Normal speech and movement present Affect: normal affect Attitude: cooperative Thought process: Normal thought process present and not confabulating Thought content: Normal thought content present Insight: Limited insight present (Psych) Judgement: Limited judgement present (Psych) Assessment & Plan Assessment & Plan (1) GERD (gastroesophageal reflux disease): Code(s): K21.9 - Gastro-esophageal reflux disease without esophagitis Plan: COLONOSCOPY Scheduled 04/26/2023 BIOPSY TODAY'S VISIT [place] #declines . He continues to do well on his famotidine and usually only taking it once a day although it is prescriber twice a day case he has breakthrough. He is also doing well with the senna moving his bowels and has no complaints. He is aware that his colonoscopy is upcoming next month but he was unaware of the follow-up appointment scheduled for 05/12 and he will need to time that appointment. Will get this for him. He does not read or write in Pakistani or [place] and he has not yet received instructions about how to prep. I give him an instruction sheet with some written information is well and he says he will have his daughter come over and help him with that. Return office visit as already established in April. (2) Odynophagia: Comment: Seems to have resolved when we treated his acid reflux. Code(s): R13.10 - Dysphagia, unspecified (3) Illiterate: Comment: Does not read in Pakistani or [place]ian Code(s): Z55.0 - Illiteracy and low-level literacy (4) Cholelithiasis: Comment: Discovered incidentally on 05/2021 ultrasound Code(s): K80.20 - Calculus of gallbladder without cholecystitis without obstruction (5) Tubular adenoma of colon: Comment: 2016 scope repeat 5 years 2020 scope insufficient prep repeat in 2 years Code(s): D12.6 - Benign neoplasm of colon, unspecified Medications: Refilled bisacodyl (Dulcolax (bisacodyl)) 10 mg (2 x 5 mg) PO BEDTIME 2 days 4 tabs 0RF famotidine (Pepcid) 40 mg PO BID 30 days 60 tabs 6RF K21.9 - Gastro-esophageal reflux disease without esophagitis sennosides (senna) 17.2 mg (2 x 8.6 mg) PO BEDTIME 30 days 60 caps 3RF constipation Coding Level of Care Code Est Pt Level 3 (04130) Diagnoses GERD (gastroesophageal reflux disease) K21.9 Odynophagia R13.10 Illiterate Z55.0 Cholelithiasis K80.20 Tubular adenoma of colon D12.6
[2023-04-06 08:45] VITALS: BP 124/84; PULSE 77; BMI 27.9
== END 2023-04-06 09:06 | disposition home or self-care (01) ==
PROVIDERS: Visit Provider Nurse Practitioner
DX: K21.9 Gastro-esophageal reflux disease without esophagitis (principal); R13.10 Dysphagia, unspecified; Z55.0 Illiteracy and low-level literacy; K80.20 Calculus of gallbladder without cholecystitis without obstruction; D12.6 Benign neoplasm of colon, unspecified
CPT/HCPCS: 99213

== ENCOUNTER → 2023-04-06 08:23 | Outpatient (BNVA) | payer OTHER, SELFPAY | PROVIDERS: Visit Provider Nurse Practitioner | DX: K21.9 Gastro-esophageal reflux disease without esophagitis (principal); R13.10 Dysphagia, unspecified; D12.6 Benign neoplasm of colon, unspecified; K80.20 Calculus of gallbladder without cholecystitis without obstruction; Z55.0 Illiteracy and low-level literacy | CPT/HCPCS: 99212 ==

== ENCOUNTER 2023-04-23 10:21 | Outpatient (AMB) | payer OTHER, SELFPAY ==
[2023-04-23 10:28] VITALS: BP 118/60; PULSE 80; TEMP 36.4; O2SAT 97; BMI 27.6
--- NOTE | 2023-04-23 10:28 | MHC.OFFVIS ---
Intake Vital Signs 04/23/23 10:28 Height 5 ft 3 in Weight 155 lb 10.342 oz BMI 27.6 BP 118/60 Blood Pressure Location Rt brachial Position Sitting Pulse 80 Pulse Source Pulse Oximeter Temp 97.5 F Temp Source Skin Pulse Oximetry (%) 97 Intake Visit Reasons: OA Intake Note: Pt seen today for OA follow up. C/o bl knee pain, left is worse. He states he had left knee surgery with [facility] approx 2 years ago for a meniscus repair Loss Control Technician Required: No Accompanied by: Self / Same As Patient Allergies raw vegetable [RAW VEGETABLE] Allergy (Intermediate, Verified 04/23/23 10:30) ITCHING Seasonal Allergies Allergy (Intermediate, Verified 04/23/23 10:30) Nasal congestion Medication List - Last Reconciled 04/23/23 by Rob Leija MD acetaminophen ER (Tylenol 8 Hour) 650 mg PO Q8H PRN ascorbate calcium (vitamin C) 500 mg PO DAILY aspirin 81 mg PO DAILY bisacodyl (Dulcolax (bisacodyl)) 10 mg (2 x 5 mg) PO BEDTIME 2 days [CPAP full face mask MEDIUM at 9 cm H20 humidified AIR As directed] famotidine (Pepcid) 40 mg PO BID 30 days gabapentin 0 mg PO latanoprost 0.005% 1 drp ophthalmic (eye) BEDTIME peg 3350-electrolytes 236-22.74-6.74 -5.86 gram (Golytely) 240 mL PO Q10M 1 day sennosides (senna) 17.2 mg (2 x 8.6 mg) PO BEDTIME 30 days sildenafil (Viagra) 100 mg PO DAILY PRN simvastatin 20 mg PO BEDTIME tramadol 50 mg PO DAILY PRN HPI HPI Comments History of Present Illness Details This is a 57-year-old male with osteoarthritis who presents for follow-up. Around 2 years ago patient had arthroscopic surgery for left lateral meniscus repair. He states that he was doing well until about 4 months ago when he he lifted something heavy and afterward he felt something pop in his left knee associated with minimal swelling. Currently he has pain when he steps with his left foot and pain with bending the knee. [facility] Medical History Abnormal MRI BPH (benign prostatic hyperplasia) Carpal tunnel syndrome Cholelithiasis Chronic pain syndrome Erectile dysfunction GERD (gastroesophageal reflux disease) Hypercholesterolemia Mixed incontinence Obstructive sleep apnea Osteoarthritis of left hip Spondylosis of lumbar spine Vitamin D deficiency Surgical History H/O carpal tunnel repair History of endoscopy History of knee surgery Hx of colonoscopy Hx of inguinal hernia repair Social History Household Members: Spouse Housing: House Are you a primary toddler caregiver to a significant other at home: No Do you presently have visiting nurse or other home services: No Alcohol intake: current Alcohol intake frequency: 0-2 drinks per day Alcohol type: beer Patient Tobacco Use Status: Former Tobacco user Quit Date: 1989 Tobacco use type: Cigarette e-Cigarette/Vaping Use: Never Used Second Hand Smoke Exposure: No service: No Current occupational status: 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, 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) Cognitive needs: No Hearing needs: No Vision needs: No Review of Systems Musc Reports arthralgias Physical Exam Vital Signs: Last Vital Signs Temp 97.5 F 04/23/23 10:28 Pulse 80 04/23/23 10:28 BP 118/60 04/23/23 10:28 Pulse Ox 97 04/23/23 10:28 BMI result Body Mass Index 27.6 Const General: cooperative, healthy appearing and comfortable Nutritional Appearance: overweight Limitations: no limitations HEENT Head: Yes normocephalic and Yes atraumatic Resp Effort & Inspection: normal respiratory effort and able to speak in complete sentences Extrem Other: Osteoarthritic changes of both hands with no active synovitis Right knee crepitus Left knee crepitus and pain with full flexion and extension, no significant swelling Assessment & Plan Assessment & Plan (1) Tear of lateral meniscus of left knee: Code(s): S83.282A - Other tear of lateral meniscus, current injury, left knee, initial encounter Qualifiers: Tear current or old: old Meniscus tear of knee type: unspecified type Qualified Code(s): M23.201 - Derangement of unspecified lateral meniscus due to old tear or injury, left knee Plan: This is a 57-year-old male with osteoarthritis who presents for follow-up.? Around 2 years ago patient had arthroscopic surgery for left lateral meniscus repair.? He states that he was doing well until about 4 months ago when he he lifted something heavy and afterward he felt something pop in his left knee associated with minimal swelling.? Currently he has pain when he steps with his left foot and pain with bending the knee. There is no significant swelling on exam. Advised patient to go back to his orthopedic surgeon Dr. Watson. Information given. Follow-up as needed Plan I spent 18 minutes reviewing patient's chart, evaluating patien, counseling patient and documenting in the chart Coding Level of Care Code Est Pt Level 3 (40494) Diagnoses Tear of lateral meniscus of left knee M23.201 Tear current or old: old Meniscus tear of knee type: unspecified type
== END 2023-04-23 10:49 | disposition home or self-care (01) ==
PROVIDERS: PCP Internal Medicine; Visit Provider Student in an Organized Health Care Education/Training Program
DX: M23.201 Derangement of unspecified lateral meniscus due to old tear or injury, left knee (principal)
CPT/HCPCS: 99213

== ENCOUNTER → 2023-04-23 10:21 | Outpatient (BNVA) | payer OTHER, SELFPAY | PROVIDERS: PCP Internal Medicine; Visit Provider Student in an Organized Health Care Education/Training Program | DX: M23.201 Derangement of unspecified lateral meniscus due to old tear or injury, left knee (principal) | CPT/HCPCS: 99212 ==

== ENCOUNTER 2023-04-26 09:44 | Day surgery (SDC) | payer OTHER, SELFPAY ==
[2023-04-22 10:10] VITALS: BMI 27.8
--- NOTE | 2023-04-23 11:01 | P.CONAN_ITS ---
Documented by User: Alise Burgos NP 04/23/23 11:01 HPI - Anesthesia Eval Consult details Narrative: 57yo M for Upper Endoscopy and Colonoscopy [facility] Active Problems Active Problems: All Active Problems (Updated 04/23/23 @ 10:52 by Rob Leija MD) Tear of lateral meniscus of left knee (Acute) Illiterate (Acute) Impaired fasting glucose (Acute) Odynophagia (Acute) Pre-op examination (Acute) Erectile dysfunction (Acute) Overweight (BMI 25.0-29.9) (Acute) Frequency of micturition (Acute) Osteoarthritis of left hip (Acute) Chronic pain syndrome (Acute) Spondylosis of lumbar spine (Acute) Tubular adenoma of colon (Acute) BPH (benign prostatic hyperplasia) (Acute) Cholelithiasis (Acute) Carpal tunnel syndrome (Acute) Obstructive sleep apnea (Acute) Hypercholesterolemia (Acute) GERD (gastroesophageal reflux disease) (Acute) Past Medical History Medical History Abnormal MRI BPH (benign prostatic hyperplasia) Carpal tunnel syndrome Cholelithiasis Chronic pain syndrome Erectile dysfunction GERD (gastroesophageal reflux disease) Hypercholesterolemia Mixed incontinence Obstructive sleep apnea Osteoarthritis of left hip Spondylosis of lumbar spine Vitamin D deficiency Family History Family history of problems with anesthesia: No Surgical History Surgical History H/O carpal tunnel repair History of endoscopy History of knee surgery Hx of colonoscopy Hx of inguinal hernia repair History of Problems with Anesthesia: No Social History Social History Household Members: Spouse Housing: House Are you a primary primary care physician to a significant other at home: No Do you presently have visiting nurse or other home services: No Alcohol intake: current Alcohol intake frequency: 0-2 drinks per day Alcohol type: beer Patient Tobacco Use Status: Former Tobacco user Quit Date: 1989 Tobacco use type: Cigarette e-Cigarette/Vaping Use: Never Used Second Hand Smoke Exposure: No Are you DNR?: No Advance Directives: No Advance Directives Information Provided: Yes Nutrition Risks: No Nutritional Risk service: No Current occupational status: 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, 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) Cognitive needs: No Hearing needs: No Vision needs: No Meds Allergies Allergy/AdvReac Type Severity Reaction Status Date / Time raw vegetable [RAW VEGETABLE] Allergy Intermediate ITCHING Verified 04/23/23 10:30 Seasonal Allergies Allergy Intermediate Nasal Verified 04/23/23 10:30 congestion Home Medications Medication Instructions Recorded Confirmed Last Taken Type aspirin 81 mg tablet,delayed 81 mg PO DAILY 10/29/20 01/13/23 Unknown History release ascorbate calcium (vitamin C) 500 500 mg PO DAILY 04/28/21 01/13/23 Unknown History mg tablet gabapentin 300 mg capsule 0 mg PO 04/23/23 Unknown History latanoprost 0.005 % eye drops 1 drp ophthalmic (eye) BEDTIME 04/23/23 Unknown History tramadol 50 mg tablet 50 mg PO DAILY PRN 04/23/23 Unknown History Exam Exam Date and Time: April 23, 2023 1101 Height,Weight and Vital Signs: Height 5 ft 3 in Weight 71.214 kg Assessment and Plan Assessment Anesthesia Assessment: Chart Reviewed Final Anesthetic Review Family History of Problems with Anesthesia: No History of Problems with Anesthesia: No Documented by User: Lakshmi Elliott MD 04/26/23 11:52 [facility] Active Problems Active Problems: All Active Problems (Updated 04/26/23 @ 10:42 by Lakshmi Elliott MD) Tear of lateral meniscus of left knee (Acute) Impaired fasting glucose (Acute) Odynophagia (Acute) Pre-op examination (Acute) Erectile dysfunction (Acute) Overweight (BMI 25.0-29.9) (Acute) Frequency of micturition (Acute) Osteoarthritis of left hip (Acute) Chronic pain syndrome (Acute) Spondylosis of lumbar spine (Acute) Tubular adenoma of colon (Acute) BPH (benign prostatic hyperplasia) (Acute) Cholelithiasis (Acute) Carpal tunnel syndrome (Acute) Obstructive sleep apnea (Acute) Hypercholesterolemia (Acute) GERD (gastroesophageal reflux disease) (Acute) Past Medical History Medical History Abnormal MRI BPH (benign prostatic hyperplasia) Carpal tunnel syndrome Cholelithiasis Chronic pain syndrome Erectile dysfunction GERD (gastroesophageal reflux disease) Hypercholesterolemia Mixed incontinence Obstructive sleep apnea Osteoarthritis of left hip Spondylosis of lumbar spine Vitamin D deficiency Surgical History Surgical History H/O carpal tunnel repair History of endoscopy History of knee surgery Hx of colonoscopy Hx of inguinal hernia repair Social History Social History Household Members: Spouse Housing: House Are you a primary primary care physician to a significant other at home: No Do you presently have visiting nurse or other home services: No Alcohol intake: current Alcohol intake frequency: 0-2 drinks per day Alcohol type: beer Patient Tobacco Use Status: Former Tobacco user Quit Date: 1989 Tobacco use type: Cigarette e-Cigarette/Vaping Use: Never Used Second Hand Smoke Exposure: No Are you DNR?: No Advance Directives: No Advance Directives Information Provided: Yes Nutrition Risks: No Nutritional Risk service: No Current occupational status: employed Current occupation: [employer] Current occupational exposures/hazards: Yes (eisenberg, stressed) Cognitive needs: No Hearing needs: No Vision needs: No Meds Allergies Allergy/AdvReac Type Severity Reaction Status Date / Time raw vegetable [RAW VEGETABLE] Allergy Intermediate ITCHING Verified 04/23/23 10:30 Seasonal Allergies Allergy Intermediate Nasal Verified 04/23/23 10:30 congestion Home Medications Medication Instructions Recorded Confirmed Last Taken Type aspirin 81 mg tablet,delayed 81 mg PO DAILY 10/29/20 01/13/23 Unknown History release ascorbate calcium (vitamin C) 500 500 mg PO DAILY 04/28/21 01/13/23 Unknown History mg tablet gabapentin 300 mg capsule 0 mg PO 04/23/23 Unknown History latanoprost 0.005 % eye drops 1 drp ophthalmic (eye) BEDTIME 04/23/23 Unknown History tramadol 50 mg tablet 50 mg PO DAILY PRN 04/23/23 Unknown History Documented by User: Adelaida Neil MD 04/26/23 11:17 [facility] Past Medical History Medical History Abnormal MRI BPH (benign prostatic hyperplasia) Carpal tunnel syndrome Cholelithiasis Chronic pain syndrome Erectile dysfunction GERD (gastroesophageal reflux disease) Hypercholesterolemia Mixed incontinence Obstructive sleep apnea Osteoarthritis of left hip Spondylosis of lumbar spine Vitamin D deficiency Surgical History Surgical History H/O carpal tunnel repair History of endoscopy History of knee surgery Hx of colonoscopy Hx of inguinal hernia repair Social History Social History Household Members: Spouse Housing: House Are you a primary primary care physician to a significant other at home: No Do you presently have visiting nurse or other home services: No Alcohol intake: current Alcohol intake frequency: 0-2 drinks per day Alcohol type: beer Patient Tobacco Use Status: Former Tobacco user Quit Date: 1989 Tobacco use type: Cigarette e-Cigarette/Vaping Use: Never Used Second Hand Smoke Exposure: No Are you DNR?: No Advance Directives: No Advance Directives Information Provided: Yes Nutrition Risks: No Nutritional Risk service: No Current occupational status: 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, 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) Cognitive needs: No Hearing needs: No Vision needs: No Meds Allergies Allergy/AdvReac Type Severity Reaction Status Date / Time raw vegetable [RAW VEGETABLE] Allergy Intermediate ITCHING Verified 04/23/23 10:30 Seasonal Allergies Allergy Intermediate Nasal Verified 04/23/23 10:30 congestion Home Medications Medication Instructions Recorded Confirmed Last Taken Type aspirin 81 mg tablet,delayed 81 mg PO DAILY 10/29/20 01/13/23 Unknown History release ascorbate calcium (vitamin C) 500 500 mg PO DAILY 04/28/21 01/13/23 Unknown History mg tablet gabapentin 300 mg capsule 0 mg PO 04/23/23 Unknown History latanoprost 0.005 % eye drops 1 drp ophthalmic (eye) BEDTIME 04/23/23 Unknown History tramadol 50 mg tablet 50 mg PO DAILY PRN 04/23/23 Unknown History Exam Airway Mallampati Class: II TM Dist: >3cm Neck ROM: Full Heart: rrr Lungs: bcta Assessment and Plan Assessment Anesthesia Assessment: Anesthesia Plan Discussed Final Anesthetic Review NPO: Yes ASA Class: III Final Preanesthetic Review: No Changes in Pt Med Stat, Meds/Allgs Chart Reviewed, Consent Obtained/Reviewed and Anes Risks/Benef Reviewed Patient Risk: Low Procedure Risk: Low Anesthetic Plan Anesthetic Plan: MAC: Disposition: Standard PACU
[2023-04-26] MEDS: Lactated Ringers 1,000 ML 100 ML IVCONT (10:18)
[2023-04-26 10:44] VITALS: BP 123/88; PULSE 75; RESP 18; TEMP 36.6; O2SAT 98
--- NOTE | 2023-04-26 11:09 | MHC.SHP ---
Pre-Procedural Eval Section A Date of Service: 04/26/23 The patient is an INPATIENT: No Changes since office visit: Yes Patient answered all questions; No Cold of Flu in the past 2 weeks, No New Medical Problems and No Changes in Medication The History & Physical has been completed within 30 days and I have reviewed it.: Yes Section B Chief Complaint: GERD,Dysphagia, unspecified,Benign neoplasm colon Allergies: Allergies Allergy/AdvReac Type Severity Reaction Status Date / Time raw vegetable [RAW VEGETABLE] Allergy Intermediate ITCHING Verified 04/23/23 10:30 Seasonal Allergies Allergy Intermediate Nasal Verified 04/23/23 10:30 congestion Plan Diagnosis/Plan: Unchanged I have reviewed the history and physical and performed a pertinent physical examination on my patient. No changes have occurred unless specified. Time Spent With Patient Time: Total time managing care of this patient today ____ minutes.
--- NOTE | 2023-04-26 11:17 | W.PM.OPN ---
Operative Note Operative Note Date of Service: 04/26/23 Narrative: FLEXIBLE TRANSORAL UPPER GASTROINTESTINAL ENDOSCOPY WITH BIOPSIES AND COLONOSCOPY TILL CECUM WITH SNARE POLYPECTOMY, SUBMUCOSAL INJECTION AND HEMOCLIP PLACEMENT Pre-op diagnosis: Surveillance for colon polyps, GERD, dysphagia Post-op diagnosis: erosive esophagitis, gastritis, duodenitis, colon polyp, diverticulosis, hemorrhoids? Endoscopist:? Ching Jamison MD Anesthesia:?MAC UPPER ENDOSCOPY Consent: Indications for the procedure and potential complications of bleeding, perforation, reaction to medications and missed diagnosis were discussed with the patient and informed consent was obtained. Instrument: Olympus GIF H 190 mid size upper endoscope Monitoring: Vital signs and clinical assessment, continuous EKG monitoring, Pulse oximetry, Carbon Dioxide monitoring and blood pressure monitoring were done throughout the procedure. Procedure: The patient was placed in the left lateral decubitis position and pre-procedure medications were administered and a bite block was placed. The endoscope was inserted into the mouth and advanced under direct vision to the third part of duodenum. A careful inspection was made as the upper endoscope was withdrawn including a retroflexed examination of the proximal stomach; Findings and interventions are described below. Findings: Larynx: Normal Esophagus: GE junction at 38 cms. Linear erosions from 36 to 38 cms (LA grade B esophagitis) Stomach: Mild gastric erythema with a few chronic appearing antral erosions. Biopsies were obtained. Grade 2 flap valve on retroflexed examination of the cardia. Duodenum: A few 3-5 mm erosions in the bulb and normal descending duodenum Intervention: Biopsies as noted above COLONOSCOPY PROCEDURE NOTE Consent: Indications for the procedure and potential complications of bleeding, perforation, reaction to medications and missed diagnosis were discussed with the patient and informed consent was obtained. Instrument: Olympus PCF H 190 L variable stiffness pediatric colonoscope Monitoring: Vital signs and clinical assessment, intermittent blood pressure monitoring, continuous EKG monitoring, Pulse oximetry and Carbon Dioxide monitoring were done throughout the procedure. Colon withdrawl time was 30 minutes. Procedure: The patient was placed in the left lateral decubitis position and pre-procedure medications were administered. After a digital rectal examination of the ano-rectum, the video colonoscope was inserted into the rectum and advanced through the colon to the cecum. The colonoscope was slowly withdrawn in a retrograde panoramic fashion and the colon mucosa was carefully examined including a retroflexed view of the rectum. Findings and interventions are described below. Procedure Difficulty: : Without difficulty Findings: Terminal Ileum: Not evaluated Cecum: A 12-15 mm flat polyp - raised with 4 cc of Eleview and removed with a stiff hot snare. Polypectomy site was closed with 1 hemoclip Ascending Colon: Normal Transverse Colon: Normal Descending Colon: Moderate diverticulosis Sigmoid Colon: Moderate diverticulosis Rectum: Normal Ano-rectum: Moderate internal hemorrhoids Colon preparation: Good in the left colon after copious irrigation and fair in the right colon Impression and Post Procedure Diagnosis: Endoscopy Findings: ESOPHAGUS: Linear erosions from 36 to 38 cms (LA Grade B esophagitis) STOMACH: Gastritis with chronic appearing antral erosions DUODENUM: Normal - biopsied to check for celiac sprue Colonoscopy Findings: One medium sized polyps removed Moderate diverticulosis seen in the left colon Moderate hemorrhoids on retroflexed exam. Plan: Await pathology results Patient has an appointment on 05/12/23 in the [facility] with Maryann Ascencio NP. Repeat Colonoscopy interval based on path results - in 3 years if polyps are adenomatous and due to fair prep in the right colon. Above findings were reviewed with the patient and GERD, colon polyps and diverticulosis handouts were given in the discharge area Pt advised to stop Famotidine and start taking Omerpazole 20 mg every morning - prescription sent to patient's preferred pharmacy.
[2023-04-26 12:20] VITALS: BP 101/71; PULSE 78; RESP 16; TEMP 36.2; O2SAT 98
[2023-04-26 12:35] VITALS: BP 109/70; PULSE 69; RESP 16; O2SAT 98
[2023-04-26 12:50] VITALS: BP 122/81; PULSE 58; RESP 16; TEMP 36.1; O2SAT 100
== END 2023-04-26 13:43 | disposition home or self-care (01) ==
PROVIDERS: PCP Internal Medicine; Visit Provider Internal Medicine Gastroenterology
PROC: (CPT 45385; principal; 2023-04-26 12:00)
DX: Z12.11 Encounter for screening for malignant neoplasm of colon (principal); Z86.010 Personal history of colon polyps; K63.5 Polyp of colon; K57.30 Diverticulosis of large intestine without perforation or abscess without bleeding; K64.8 Other hemorrhoids; R13.10 Dysphagia, unspecified; K21.9 Gastro-esophageal reflux disease without esophagitis; K29.70 Gastritis, unspecified, without bleeding; K29.80 Duodenitis without bleeding; K20.80 Other esophagitis without bleeding; E78.00 Pure hypercholesterolemia, unspecified; G47.33 Obstructive sleep apnea (adult) (pediatric); N39.46 Mixed incontinence; J30.2 Other seasonal allergic rhinitis; Z55.0 Illiteracy and low-level literacy; Z79.82 Long term (current) use of aspirin; Z79.899 Other long term (current) drug therapy; Z87.891 Personal history of nicotine dependence
CPT/HCPCS: 45385; 45381; 43239; 88305; 88342

== ENCOUNTER → 2023-04-26 09:44 | Outpatient (BNV) | payer OTHER, SELFPAY | PROVIDERS: PCP Internal Medicine; Visit Provider Internal Medicine Gastroenterology | DX: Z12.11 Encounter for screening for malignant neoplasm of colon (principal); K21.00 Gastro-esophageal reflux disease with esophagitis, without bleeding; K29.90 Gastroduodenitis, unspecified, without bleeding; K57.30 Diverticulosis of large intestine without perforation or abscess without bleeding; K64.8 Other hemorrhoids; D12.0 Benign neoplasm of cecum | CPT/HCPCS: 43239; 45381; 45385 ==

== ENCOUNTER 2023-05-05 09:18 | Outpatient (REF) | payer OTHER, SELFPAY ==
--- NOTE | ~2023-05-05 | XR_ITS ---
EXAMINATION: XR KNEE, LEFT CLINICAL INFORMATION: Pain left knee. COMPARISON: Left knee 06/12/2021 TECHNIQUE: 2 views of the left knee. FINDINGS: There is minimal loss of patellofemoral compartment joint space with superior patellar spurring. No loose bodies, acute fracture or joint effusion seen. The soft tissues are normal. XR/XR knee LT 2V IMPRESSION: Mild degenerative changes patellofemoral compartment with anterior superior patellar enthesophytes. No abnormal joint effusion suspected. No acute fracture.
== END 2023-05-05 09:19 | disposition home or self-care (01) ==
LOC: HO.XRAY 09:18
PROVIDERS: PCP Internal Medicine; Visit Provider Nurse Practitioner Family
DX: M25.562 Pain in left knee (principal)
CPT/HCPCS: 73560

== ENCOUNTER 2023-05-12 11:55 | Outpatient (AMB) | payer OTHER, SELFPAY ==
[2023-05-12 12:04] VITALS: BP 139/80; PULSE 71; BMI 27.6
--- NOTE | 2023-05-12 12:04 | MHC.OFFVIS ---
Intake Vital Signs 05/12/23 12:04 Height 5 ft 3 in Weight 155 lb 10.342 oz BMI 27.6 BP 139/80 Blood Pressure Location Rt brachial Position Sitting Pulse 71 Intake Visit Reasons: S/p egd/colon- Malk Intake Note: Patient presents to in office visit today in postoperative follow up. Patient s/p EGD and colonoscopy on 04/26/23. CC: Patient reports after EGD and colonoscopy he was having a fever and abdominal pain x 3 days. Patient states he is now doing well and denies having any GI symptoms. Allergies raw vegetable [RAW VEGETABLE] Allergy (Intermediate, Verified 05/12/23 12:09) ITCHING Seasonal Allergies Allergy (Intermediate, Verified 05/12/23 12:09) Nasal congestion No Known Drug Allergies Allergy (Unknown, Verified 05/12/23 12:09) none HPI S/p egd/colon- Malk HPI Details Assessment & Plan (1) GERD (gastroesophageal reflux disease): Code(s): K21.9 - Gastro-esophageal reflux disease without esophagitis Plan: Sammarinese #declines . He continues to do well on his famotidine and usually only taking it once a day although it is prescriber twice a day case he has breakthrough. He is also doing well with the senna moving his bowels and has no complaints. He is aware that his colonoscopy is upcoming next month but he was unaware of the follow-up appointment scheduled for 05/12 and he will need to time that appointment. Will get this for him. He does not read or write in [place]an or Sammarinese and he has not yet received instructions about how to prep. I give him an instruction sheet with some written information is well and he says he will have his daughter come over and help him with that. Return office visit as already established in April. (2) Odynophagia: Comment: Seems to have resolved when we treated his acid reflux. Code(s): R13.10 - Dysphagia, unspecified (3) Illiterate: Comment: Does not read in [place]an or Sammarinese Code(s): Z55.0 - Illiteracy and low-level literacy (4) Cholelithiasis: Comment: Discovered incidentally on 05/2021 ultrasound Code(s): K80.20 - Calculus of gallbladder without cholecystitis without obstruction (5) Tubular adenoma of colon: Comment: 2016 scope repeat 5 years 2020 scope insufficient prep repeat in 2 years Code(s): D12.6 - Benign neoplasm of colon, unspecified Medications: Refilled bisacodyl (Dulcolax (bisacodyl)) 10 mg (2 x 5 mg) PO BEDTIME 2 days 4 tabs 0RF famotidine (Pepcid) 40 mg PO BID 30 days 60 tabs 6RF K21.9 - Gastro-esophageal reflux disease without esophagitis sennosides (senna) 17.2 mg (2 x 8.6 mg) PO BEDTIME 30 days 60 caps 3RF constipation COLONOSCOPY 04/26/23 Findings: Terminal Ileum: Not evaluated Cecum: A 12-15 mm flat polyp - raised with 4 cc of Eleview and removed with a stiff hot snare. Polypectomy site was closed with 1 hemoclip Ascending Colon: Normal Transverse Colon: Normal Descending Colon: Moderate diverticulosis Sigmoid Colon: Moderate diverticulosis Rectum: Normal Ano-rectum: Moderate internal hemorrhoids Colon preparation: Good in the left colon after copious irrigation and fair in the right colon Impression and Post Procedure Diagnosis: Endoscopy Findings: ESOPHAGUS: Linear erosions from 36 to 38 cms (LA Grade B esophagitis) STOMACH: Gastritis with chronic appearing antral erosions DUODENUM: Normal - biopsied to check for celiac sprue Colonoscopy Findings: One medium sized polyps removed Moderate diverticulosis seen in the left colon Moderate hemorrhoids on retroflexed exam. Plan: Await pathology results Patient has an appointment on 05/12/23 in the [facility] with Maryann Ascencio NP. Repeat Colonoscopy interval based on path results - in 3 years if polyps are adenomatous and due to fair prep in the right colon. Above findings were reviewed with the patient and GERD, colon polyps and diverticulosis handouts were given in the discharge area Pt advised to stop Famotidine and start taking Omerpazole 20 mg every morning - prescription sent to patient's preferred pharmacy BIOPSY Received: 04/26/23 Diagnosis A. Stomach, antrum, biopsy: Gastric antral mucosa within normal limits; negative for Helicobacter pylori, intestinal metaplasia and dysplasia. B. Colon, cecum, polypectomy: Clinically polypoid colonic mucosa noted; negative for a hyperplastic or neoplastic process TODAY'S VISIT Sammarinese #declines He is agreeable to a 5 year follow up. He had some abd pain and a fever after the procedure that sounds like post polypectomy syndrome, so we will look for this in his next scope. He has since recovered and we will consider Gas X as well to reduce gas trapping as he has a lot of bloating. The results were explained and the patient is agreeable to the follow-up interval as stated. The bowel pattern has returned to normal. Education was provided to tell any 1st degree relatives about their findings to be sure that they are screened by age 45. Educated that they will be put on a recall list when it is time for their repeat scope but should they move out of state or away from the hospital they will need to remember along with their primary to repeat the procedure in a timely fashion to avoid any adverse complications. He is taking the omeprazole 20mg qam, and I will add famotidine 40mg qhs for a while to promote healing. He still has some trouble swallowing and he has to use frequent water sips, even if he is eating soup! HE uses the senna only if he needs it. HE is satisfied with this. HE will be getting injections for his hip and back soon form a pain provider in [place]. RONilda keep 10/07 appt. [facility] Medical History Osteoarthritis of left hip Chronic pain syndrome Spondylosis of lumbar spine Abnormal MRI BPH (benign prostatic hyperplasia) Erectile dysfunction Carpal tunnel syndrome Cholelithiasis Vitamin D deficiency Obstructive sleep apnea Hypercholesterolemia GERD (gastroesophageal reflux disease) Mixed incontinence Surgical History History of knee surgery History of endoscopy Hx of colonoscopy H/O carpal tunnel repair Hx of inguinal hernia repair Social History Household Members: Spouse Housing: House Are you a primary critical care transport nurse to a significant other at home: No Do you presently have visiting nurse or other home services: No Alcohol intake: current Alcohol intake frequency: 0-2 drinks per day Alcohol type: beer Patient Tobacco Use Status: Former Tobacco user Quit Date: 1989 Tobacco use type: Cigarette e-Cigarette/Vaping Use: Never Used Second Hand Smoke Exposure: No service: No Current occupational status: employed Current occupation: [email or web address] Current occupational exposures/hazards: Yes (eisenberg, stressed) Cognitive needs: No Hearing needs: No Vision needs: No Review of Systems Const Denies fatigue, Denies fever(s), Denies night sweats, Denies poor appetite and Denies weight loss Eyes Details: glasses fro reading Reports requires corrective lenses ENT Reports Normal hearing present, Denies dental pain, Denies dysphagia, Denies hearing loss, Denies mouth pain, Denies odynophagia, Denies throat swelling, Denies tongue swelling and Reports other (Dentition adequate) Card Reports no additional complaints Resp Reports no additional complaints GI Denies abdominal pain, Denies melena, Denies bloating, Denies hematochezia, Reports constipation, Denies GI cramping, Denies dysphagia, Denies excessive flatus, Denies early satiety, Reports heartburn, Denies diarrhea, Denies nausea, Denies odynophagia, Denies vomiting and Denies hematemesis Skin/Breast Denies pruritus, Denies lesions, Denies rash and Denies jaundice Neuro Reports Normal hearing present and Denies Abnormal speech present Endo Denies fatigue Aller/Immun Denies throat swelling and Denies tongue swelling Physical Exam Vital Signs: Last Vital Signs Pulse 71 05/12/23 12:04 BP 139/80 05/12/23 12:04 BMI result Body Mass Index 27.6 Const General: cooperative, no acute distress, well developed and well groomed Nutritional Appearance: average body habitus and well nourished Orientation/consciousness: oriented to person, oriented to place and oriented to time Limitations: No language barrier and other limitations (Illiterate) HEENT Head: Yes normocephalic and Yes atraumatic Eyes General: appearance normal, both eyes and all related structures Pupils: Equal, round and reactive pupils present Neck Neck: Yes normal visual inspection and Yes no lymphadenopathy Thyroid: Thyroid normal Resp Effort & Inspection: normal respiratory effort and able to speak in complete sentences Auscultation: clear to auscultation bilaterally Cardio Rate: regular rate Rhythm: regular rhythm Heart sounds: Normal, physiologic split S2 sound present Peripheral pulses: radial pulses present and posterior tibial pulses present GI Inspection: No distended and No Abdominal panniculus present Palpation (GI): Soft to palpation, nontender, no guarding, not rigid and No hepatosplenomegaly present Percussion: Yes normal to percussion Auscultation: normal bowel sounds Rectal Exam - Male: Yes deferred Skin General skin exam: no rashes or lesions noted, turgor normal, skin not dry, no jaundice, No spider nevi and no striae Rashes: no rashes Nails: normal Neuro General: oriented to person, oriented to place and oriented to time Cranial nerves: Yes Equal, round and reactive pupils present and Yes Normal hearing present Speech: No Abnormal speech present Extrem General: Yes normal to inspection, No clubbing, No cyanosis and No edema Psych Appearance: grossly normal and well kempt Mental Status: mental status grossly normal Speech and movement: Normal speech and movement present Affect: normal affect Attitude: cooperative Thought process: Normal thought process present and not confabulating Thought content: Normal thought content present Insight: Limited insight present (Psych) Judgement: Limited judgement present (Psych) Results Reviewed Results Reviewed: COLONOSCOPY 04/26/23 Findings: Terminal Ileum: Not evaluated Cecum: A 12-15 mm flat polyp - raised with 4 cc of Eleview and removed with a stiff hot snare. Polypectomy site was closed with 1 hemoclip Ascending Colon: Normal Transverse Colon: Normal Descending Colon: Moderate diverticulosis Sigmoid Colon: Moderate diverticulosis Rectum: Normal Ano-rectum: Moderate internal hemorrhoids Colon preparation: Good in the left colon after copious irrigation and fair in the right colon Impression and Post Procedure Diagnosis: Endoscopy Findings: ESOPHAGUS: Linear erosions from 36 to 38 cms (LA Grade B esophagitis) STOMACH: Gastritis with chronic appearing antral erosions DUODENUM: Normal - biopsied to check for celiac sprue Colonoscopy Findings: One medium sized polyps removed Moderate diverticulosis seen in the left colon Moderate hemorrhoids on retroflexed exam. Plan: Await pathology results Patient has an appointment on 05/12/23 in the GI Clinic with Maryann Ascencio NP. Repeat Colonoscopy interval based on path results - in 3 years if polyps are adenomatous and due to fair prep in the right colon. Above findings were reviewed with the patient and GERD, colon polyps and diverticulosis handouts were given in the discharge area Pt advised to stop Famotidine and start taking Omerpazole 20 mg every morning - prescription sent to patient's preferred pharmacy BIOPSY Received: 04/26/23 Diagnosis A. Stomach, antrum, biopsy: Gastric antral mucosa within normal limits; negative for Helicobacter pylori, intestinal metaplasia and dysplasia. B. Colon, cecum, polypectomy: Clinically polypoid colonic mucosa noted; negative for a hyperplastic or neoplastic process Assessment & Plan Assessment & Plan (1) Erosive esophagitis: Code(s): K22.10 - Ulcer of esophagus without bleeding Plan: Sammarinese #declines He is agreeable to a 5 year follow up. He had some abd pain and a fever after the procedure that sounds like post polypectomy syndrome, so we will look for this in his next scope. He has since recovered and we will consider Gas X as well to reduce gas trapping as he has a lot of bloating. The results were explained and the patient is agreeable to the follow-up interval as stated. The bowel pattern has returned to normal. Education was provided to tell any 1st degree relatives about their findings to be sure that they are screened by age 45. Educated that they will be put on a recall list when it is time for their repeat scope but should they move out of state or away from the hospital they will need to remember along with their primary to repeat the procedure in a timely fashion to avoid any adverse complications. He is taking the omeprazole 20mg qam, and I will add famotidine 40mg qhs for a while to promote healing. He still has some trouble swallowing and he has to use frequent water sips, even if he is eating soup! HE uses the senna only if he needs it. HE is satisfied with this. HE will be getting injections for his hip and back soon form a pain provider in [place]. SOLA keep 10/07 appt. (2) Odynophagia: Comment: Seems to have resolved when we treated his acid reflux. Code(s): R13.10 - Dysphagia, unspecified (3) Tubular adenoma of colon: Comment: 2022= negative exam repeat in 5 years (may have had mild polypectomy syndrome); 2016 scope repeat 5 years 2020 scope insufficient prep repeat in 2 years Code(s): D12.6 - Benign neoplasm of colon, unspecified (4) GERD (gastroesophageal reflux disease): Code(s): K21.9 - Gastro-esophageal reflux disease without esophagitis Medications: New famotidine (Pepcid) 40 mg PO BEDTIME 30 tabs 6RF K22.10 - Ulcer of esophagus without bleeding Refilled omeprazole Take 1 tablet daily 30 minutes before breakfast 20 mg PO .daily 60 days 60 tabs 6RF K22.10 - Ulcer of esophagus without bleeding Coding Level of Care Code Est Pt Level 4 (31897) Diagnoses Erosive esophagitis K22.10 Odynophagia R13.10 Tubular adenoma of colon D12.6 GERD (gastroesophageal reflux disease) K21.9
== END 2023-05-12 12:46 | disposition home or self-care (01) ==
PROVIDERS: PCP Internal Medicine; Visit Provider Nurse Practitioner
DX: K22.10 Ulcer of esophagus without bleeding (principal); R13.10 Dysphagia, unspecified; D12.6 Benign neoplasm of colon, unspecified; K21.9 Gastro-esophageal reflux disease without esophagitis
CPT/HCPCS: 99214

== ENCOUNTER → 2023-05-12 11:55 | Outpatient (BNVA) | payer OTHER, SELFPAY | PROVIDERS: PCP Internal Medicine; Visit Provider Nurse Practitioner | DX: K22.10 Ulcer of esophagus without bleeding (principal); K21.9 Gastro-esophageal reflux disease without esophagitis; R13.10 Dysphagia, unspecified; D12.6 Benign neoplasm of colon, unspecified | CPT/HCPCS: 99212 ==

== ENCOUNTER 2023-07-01 00:31 | Emergency (ER) | payer OTHER, SELFPAY ==
--- NOTE | ~2023-07-01 | XR_ITS ---
EXAMINATION: XR SHOULDER, RIGHT CLINICAL INFORMATION: Pain. COMPARISON: None available. TECHNIQUE: AP external rotation, Grashey, scapular Y, and axillary views of the right shoulder. FINDINGS: The bone mineralization is normal. There is mild to moderate acromioclavicular degenerative change with loss of joint space and osteophyte formation. There is no fracture. The soft tissues are unremarkable. XR/XR shoulder RT min 2V IMPRESSION: No acute osseous abnormality. Acromioclavicular degenerative change.
[2023-07-01 00:34] VITALS: BP 138/91; PULSE 83; RESP 18; TEMP 36.3; O2SAT 97; BMI 26.6
--- NOTE | 2023-07-01 02:56 | ED.GENADULT ---
HPI - General Adult General Chief complaint: General Medical Stated complaint: shoulder pain Time Seen by Provider: 07/01/23 02:56 Source: patient and family Mode of arrival: ambulatory Limitations: no limitations History of Present Illness HPI narrative: In comes to the emergency room complaining of chronic right shoulder pain for 2 weeks, no history of trauma. However, patient states that the main reason that he came today is because he has been having left-sided eye pain that started approximately 20 hours ago. Patient states that the night before, patient slipped with his contact lenses on, then went to work. Then around 10:00 on the morning of June 30, patient started complaining of increased pressure in the eye, redness and tearing. Patient removed his contact lenses and started wearing his glasses. However, patient stated that the redness and the eye pressure kept getting worse. Patient states that he has history of glaucoma, takes latanoprost at home. Patient was hoping that by removing the contact lenses he would feel better but the pain kept getting worse throughout the day. Related Data Home Medications Medication Instructions Recorded Confirmed aspirin 81 mg tablet,delayed 81 mg PO DAILY 10/29/20 01/13/23 release ascorbate calcium (vitamin C) 500 500 mg PO DAILY 04/28/21 01/13/23 mg tablet latanoprost 0.005 % eye drops 1 drp ophthalmic (eye) BEDTIME 04/23/23 tramadol 50 mg tablet 50 mg PO DAILY PRN 04/23/23 gabapentin 300 mg capsule 300 mg PO 05/12/23 meloxicam 15 mg tablet 15 mg PO DAILY 05/12/23 Previous Rx's Medication Instructions Recorded acetaminophen 650 mg 650 mg PO Q8H PRN fever or pain 04/20/21 tablet,extended release (Tylenol 8 #20 tabs Hour) CPAP full face mask MEDIUM at 9 #1 ea 09/28/22 cm H20 humidified AIR sildenafil 100 mg tablet (Viagra) 100 mg PO DAILY PRN sexual 09/28/22 activity #14 tabs simvastatin 20 mg tablet 20 mg PO BEDTIME #90 tabs 02/21/23 sennosides 8.6 mg capsule (senna) 17.2 mg (2 x 8.6 mg) PO BEDTIME 04/06/23 constipation 30 days #60 caps famotidine 40 mg tablet (Pepcid) 40 mg PO BEDTIME #30 tabs 05/12/23 omeprazole 20 mg tablet,delayed 20 mg PO .daily 60 days #60 tabs 05/12/23 release ofloxacin 0.3 % eye drops 1 drp ophthalmic (eye) QID #10 mL 07/01/23 tramadol 50 mg tablet 50 mg PO Q8H PRN pain #10 tabs 07/01/23 Allergies Allergy/AdvReac Type Severity Reaction Status Date / Time raw vegetable [RAW VEGETABLE] Allergy Intermediate ITCHING Verified 07/01/23 00:34 Seasonal Allergies Allergy Intermediate Nasal Verified 07/01/23 00:34 congestion No Known Drug Allergies Allergy Unknown none Verified 07/01/23 00:34 Review of Systems Review of Systems: Constitutional : No Weight loss, No Fever, No Chills, No Night Sweats, No Fatigue, No Malaise ENT/Mouth : No Hearing loss, No Ear Pain, No Nasal Congestion, No Sinus Pain, No Hoarseness, No sore throat, No Rhinorrhea, No Swallowing Difficulty Eyes: Complaining of eye pain, redness, tearing on the left, no discharge Cardiovascular : No Chest Pain, No SOB, No Dyspnea on Exertion, No Orthopnea, No Edema, No Palpitations Respiratory : No Cough, No Sputum, No Wheezing, No Smoke Exposure, No Dyspnea Gastrointestinal : No Nausea, No Vomiting, No Diarrhea, No Constipation, No abdominal Pain, No Hematochezia, No Melena Genitourinary : no irregular bleeding, No Dysuria, No Urinary Frequency, No Hematuria, No Urinary Incontinence, No Urgency, No Flank Pain, No Urinary Flow Changes, No Hesitancy Musculoskeletal : No joint pain, No Myalgias, No Joint Swelling Skin : No Skin Lesions, No rash Neuro : No Weakness, No Numbness, No Paresthesias, No Loss of Consciousness, No Dizziness, No Headache Psych : No Anxiety/Panic, No Depression, No SI/HI/AH/VH, No Social Issues, Heme/Lymph: No Bruising, No Bleeding,No Lymphadenopathy Endocrine : No Polyuria, No Polydipsia, No Temperature Intolerance PMFSH Past Medical History Medical History Osteoarthritis of left hip Chronic pain syndrome Spondylosis of lumbar spine Abnormal MRI BPH (benign prostatic hyperplasia) Erectile dysfunction Carpal tunnel syndrome Cholelithiasis Vitamin D deficiency Obstructive sleep apnea Hypercholesterolemia GERD (gastroesophageal reflux disease) Mixed incontinence Surgical History History of knee surgery History of endoscopy Hx of colonoscopy H/O carpal tunnel repair Hx of inguinal hernia repair Social History Social History Household Members: Spouse Housing: House Are you a primary child care centre director to a significant other at home: No Do you presently have visiting nurse or other home services: No Alcohol intake: current Alcohol intake frequency: a few times a month Alcohol type: beer Patient Tobacco Use Status: Former Tobacco user Quit Date: 1989 Tobacco use type: Cigarette Smoked in Last 30 Days: No e-Cigarette/Vaping Use: Never Used Second Hand Smoke Exposure: No Use of substances other than those prescribed or required for medical reasons: No Advance Directives: No Advance Directives Information Provided: Yes service: No Current occupational status: employed Current occupation: [email or web address] Current occupational exposures/hazards: Yes (eisenberg, stressed) Cognitive needs: No Hearing needs: No Vision needs: No Physical Exam ED Vital Signs: Vital Signs - 24 hr 07/01/23 00:34 07/01/23 03:05 Temperature 97.3 F 97.8 F Pulse Rate 83 78 Respiratory Rate 18 16 Blood Pressure 138/91 H 144/95 H Pulse Oximetry 97 99 Oxygen Delivery Method Room Air Room Air BMI result Body Mass Index 26.6 Const Other: Appearance: Alert. Oriented X3. No acute distress. Eyes: Pupils equal, round and reactive to light. Patient's left eye is erythematous, cheerful, no discharge. Fluorescein stain test is negative for corneal abrasions or ulcerations ENT: Pharynx normal. Neck: Normal inspection. Neck supple. No lymph nodes noted. No crepitus CVS: Normal heart rate and rhythm. Pulses normal. Normal S1 and S2 Respiratory: No respiratory distress. Breath sounds normal. No Wheezing. No rales Abdomen: Soft and nontender. No rigidity. No distention. Skin: Skin warm and dry. Normal skin color. Normal skin turgor. Extremities: No lower extremity edema. No Lacerations. No Rash Neuro: Oriented X 3. No motor deficit. No sensory deficit. Moving all extremities. No slurred speech. CN 2 through 12 grossly intact Psych: calm, cooperative, normal affect Course Course Course Narrative: -unfortunately, we do not have a Talha-Pen to measure the patient's eye pressure. -we attempted transferring the patient to [facility]. However, they do not accept any transfers at this time plus did not have any family. -we tried calling other hospitalist in the area, ophthalmology is not available either. -I discussed the patient with Dr. Angela from Ophthalmology, there is a Talha-Pen in the short-stay suite. However, no one has been able to find it. Medications Administered Discontinued Medications Generic Name Dose Route Start Last Admin Trade Name Karly PRN Reason Stop Dose Admin Fluorescein Sodium 1 strip 07/01/23 03:04 07/01/23 03:11 Fluorescein Sodium Strip EYE-BOTH 07/01/23 03:05 1 strip ONCE ONE Administration Levofloxacin 500 mg in 100 mls @ 100 mls/hr 07/01/23 03:36 07/01/23 04:28 Levaquin IV 07/01/23 04:35 100 mls/hr ONCE ONE Administration Ketorolac Tromethamine 30 mg 07/01/23 04:17 07/01/23 04:24 Ketorolac Tromethamine 30 Mg/Ml Vial IVPUSH 07/01/23 04:18 30 mg ONCE ONE Administration Tetracaine HCl 1 drop 07/01/23 03:04 07/01/23 03:11 Tetracaine Hcl/Pf 0.5% Oph Cassandra 4 Ml Drops EYE-BOTH 07/01/23 03:05 1 drop ONCE ONE Administration Medical Decision Making Medical Decision Making MDM Narrative: -patient does have history of glaucoma. Patient may be having acute angle closure glaucoma at this time. We are unable to measure the eye pressure. -were trying to transfer the patient. However[facility] patient can wait to be seen by his eye doctor this morning. -also, I spoke with Dr. Angela, ideally, patient should be seen by his own farm equipment mechanic apprentice 1st thing this morning. If patient cannot be seen for any reason, Dr. Angela will see him this morning. -I discussed the plan with the patient, patient will be sent home, as mentioned above, he will try calling 1st his farm equipment mechanic apprentice. -patient is aware that is extremely important that he get seen by an farm equipment mechanic apprentice this morning, as patient may have acute angle closure glaucoma. -due to the history of contact lenses bothering him, ongoing foreign body sensation, patient will be on antibiotics. Also, after ketorolac, patient states that the pain is getting better. Differential Diagnosis Differential Diagnoses: The differential diagnosis associated with the presentation includes (Corneal abrasion, corneal ulceration, acute angle closure glaucoma, conjunctivitis) Admission/Observation Consideration of admission/observation: Escalation of care including admission/observation considered (Transfer was considered. However, per ophthalmology, can wait for the morning to be seen by patient's own farm equipment mechanic apprentice) Consult Healthcare Provider Management of the patient was discussed with: Graduate Studies Dean Critical Care Time Critical Care Time Critical Care Time: Yes Total Critical Care Time: 60 Attestation: I have personally provided critical care time. Time includes review of lab data, radiology results, discussion with consultants, and monitoring for potential decompensation. Intervention performed as documented. Discharge Plan Discharge Clinical Impression: Glaucoma, Pain in right shoulder Patient Disposition: Home, Self-Care Instructions: Glaucoma (ED), Shoulder Pain (ED) Additional Instructions: It is extremely important that you contact your farm equipment mechanic apprentice/eye doctor early in the morning. You need to be seen today. If for any reason you cannot be seen by your own farm equipment mechanic apprentice, Dr. Angela will see you today. Do not use contact lenses. Please follow-up with your primary care physician tomorrow. If you have any worsening or new symptoms, please return to the emergency room or call 911 Prescriptions: New tramadol 50 mg tablet 50 mg PO Q8H PRN (Reason: pain) Qty: 10 0RF ofloxacin 0.3 % drops 1 drp ophthalmic (eye) QID Qty: 10 0RF No Action simvastatin 20 mg tablet 20 mg PO BEDTIME Qty: 90 2RF acetaminophen [Tylenol 8 Hour] 650 mg tablet extended release 650 mg PO Q8H PRN (Reason: fever or pain) Qty: 20 0RF ascorbate calcium (vitamin C) 500 mg tablet 500 mg PO DAILY (DME) CPAP full face mask MEDIUM at 9 cm H20 humidified AIR See Rx Instructions .Route .MEDSUPPLY Qty: 1 0RF Rx Instructions: As directed sildenafil [Viagra] 100 mg tablet 100 mg PO DAILY PRN (Reason: sexual activity) Qty: 14 1RF Rx Instructions: administer 30 minutes to 4 hours before activity aspirin 81 mg tablet,delayed release (DR/EC) 81 mg PO DAILY tramadol 50 mg tablet 50 mg PO DAILY PRN latanoprost 0.005 % drops 1 drp ophthalmic (eye) BEDTIME gabapentin 300 mg capsule 300 mg PO senna 8.6 mg capsule 17.2 mg PO BEDTIME 30 Days Qty: 60 3RF meloxicam 15 mg tablet 15 mg PO DAILY omeprazole 20 mg tablet,delayed release (DR/EC) 20 mg PO .daily 60 Days Qty: 60 6RF Rx Instructions: Take 1 tablet daily 30 minutes before breakfast famotidine [Pepcid] 40 mg tablet 40 mg PO BEDTIME Qty: 30 6RF Referrals: Jamshid Angela [Physician] - 07/01/23 7:30 am
[2023-07-01 03:05] VITALS: BP 144/95; PULSE 78; RESP 16; TEMP 36.6; O2SAT 99
[2023-07-01] MEDS: Tetracaine HCl/PF 0.5% Oph Sol 4 ML DROPS 1 DROP EYE-BOTH (03:11)
[2023-07-01] MEDS: Fluorescein Sodium STRIP 1 STRIP EYE-BOTH (03:11)
--- NOTE | 2023-07-01 03:48 | PC.NURSE ---
IV placed to L forearm
--- NOTE | 2023-07-01 04:15 | PC.NURSE ---
This rn had a conversation with the pt and family member at bedside, pt is in aggreement to be transfered to [facility] via ambulance due to [facility] is not excepting.
[2023-07-01] MEDS: Ketorolac Tromethamine 30 MG/ML VIAL IVPUSH (04:24)
[2023-07-01] MEDS: levoFLOXacin/D5W 500 MG/100 ML PIGGYBACK 100 MG IV (04:28)
[2023-07-01 05:46] VITALS: BP 134/86; PULSE 79; RESP 18; O2SAT 99
== END 2023-07-01 05:52 | disposition home or self-care (01) ==
PROVIDERS: Emergency Provider Emergency Medicine
DX: M25.511 Pain in right shoulder (principal); H40.9 Unspecified glaucoma; Z87.891 Personal history of nicotine dependence; Z79.899 Other long term (current) drug therapy
CPT/HCPCS: 73030; 96365; 96375; 99284; J1885; J1956

== ENCOUNTER 2023-08-19 14:21 | Outpatient (AMB) | payer OTHER, SELFPAY ==
[2023-08-19 14:23] VITALS: BP 130/82; PULSE 76; O2SAT 97; BMI 27.1
--- NOTE | 2023-08-19 14:23 | MHC.PC.OV ---
Vital Signs 08/19/23 14:23 Height 5 ft 3 in Weight 153 lb 0.4 oz BMI 27.1 BP 130/82 Blood Pressure Location Lt brachial Position Sitting Pulse 76 Pulse Source Pulse Oximeter Pulse Oximetry (%) 97 Oxygen Delivery Method Room Air Intake [place] [facility] [place] right shoulder pain diagnosed arthritis Intake Note: Patient is here to follow-up after a visit the emergency department at [facility] on 07/01 [employer] [facility] Required: No Allergies raw vegetable [RAW VEGETABLE] Allergy (Intermediate, Verified 08/19/23 14:28) ITCHING Seasonal Allergies Allergy (Intermediate, Verified 08/19/23 14:28) Nasal congestion No Known Drug Allergies Allergy (Unknown, Verified 08/19/23 14:28) none Medication List - Last Reconciled 08/19/23 by Agustina Oconnell MD acetaminophen ER (Tylenol 8 Hour) 650 mg PO Q8H PRN ascorbate calcium (vitamin C) 500 mg PO DAILY aspirin 81 mg PO DAILY [CPAP full face mask MEDIUM at 9 cm H20 humidified AIR As directed] famotidine (Pepcid) 40 mg PO BEDTIME gabapentin 300 mg PO latanoprost 0.005% 1 drp ophthalmic (eye) BEDTIME meloxicam 15 mg PO DAILY ofloxacin 0.3% 1 drp ophthalmic (eye) QID omeprazole 20 mg PO .daily 90 days sennosides (senna) 17.2 mg (2 x 8.6 mg) PO BEDTIME 30 days sildenafil (Viagra) 100 mg PO DAILY PRN simvastatin 20 mg PO BEDTIME tramadol 50 mg PO Q8H PRN tramadol 50 mg PO DAILY PRN Tobacco use date assessed: 08/19/23 Dental Screening Dental Screen Date: 08/19/23 Did you have a dental visit in the last 12 months?: No Did you have a dental problem in the last 6 months where you did not have access to dental care?: No [place]PI [facility] [place] right shoulder pain diagnosed arthritis HPI Details 58-year-old overweight male with left hip osteoarthritis lumbar spine spondylosis obstructive sleep apnea hypercholesterolemia GERD impaired glucose tolerance frequency of micturition coming in for follow-up. Last seen in December 2022 has tubular adenoma and was referred to Gastroenterology. Review of the notes June 2023 ER visit due to right shoulder pain and left-sided eye pain. Right shoulder did have an x-ray done which showing degenerative changes. Patient was sent to health records technology teacher and was prescribed tramadol patient also was seen by the auto service station attendant had EGD and colonoscopy needs to follow-up in 5 years. Patient has also knee pain left is more than the right seen by Rheumatology history of of having arthroscopic surgery 2 years ago left lateral meniscal tear. Patient was advised to follow-up with orthopedics. SEEN [facility]MOLOGY IN [facility] on drops. [facility] Medical History (Updated 08/19/23 @ 14:42 by Agustina Oconnell MD) Pain in right shoulder Osteoarthritis of left hip Chronic pain syndrome Spondylosis of lumbar spine Abnormal MRI BPH (benign prostatic hyperplasia) Erectile dysfunction Carpal tunnel syndrome Cholelithiasis Vitamin D deficiency Obstructive sleep apnea Hypercholesterolemia GERD (gastroesophageal reflux disease) Mixed incontinence Surgical History History of knee surgery History of endoscopy Hx of colonoscopy H/O carpal tunnel repair Hx of inguinal hernia repair Social History Household Members: Spouse Housing: House Are you a primary care specialist to a significant other at home: No Do you presently have visiting nurse or other home services: No Alcohol intake: current Alcohol intake frequency: a few times a month Alcohol type: beer Patient Tobacco Use Status: Former Tobacco user Quit Date: 1989 Tobacco use type: Cigarette e-Cigarette/Vaping Use: Never Used Second Hand Smoke Exposure: No service: No Current occupational status: 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 How often do you have a drink containing alcohol?: 4 or more times a week 2. How many drinks containing alcohol do you have on a typical day when you are drinking?: 3 or 4 Total Score: 5 KAROLINE-7 AMB Questionnaire KAROLINE-7 Date KAROLINE - 7 assessed: 01/13/23 Source: Developed by Drs. Anderson Johnson, Dee Dee Stewart, Paresh Durant and colleagues, with an educational bia from [employer]. Physical exam (Primary Care) Vital Signs: Last Vital Signs Pulse 76 08/19/23 14:23 BP 130/82 08/19/23 14:23 Pulse Ox 97 08/19/23 14:23 Oxygen Delivery Method Room Air 08/19/23 14:23 BMI result Body Mass Index 27.1 Tobacco/Smoking Status: Tobacco use Status Tobacco use date assessed 08/19/23 08/19/23 14:30 Patient Tobacco Use Status Former Tobacco user 08/19/23 14:30 Tobacco use type Cigarette 08/19/23 14:30 e-Cigarette/Vaping Use Never Used 08/19/23 14:30 Thrive Assessment: Date of Thrive Assessment Date Thrive assessed 01/13/23 08/19/23 14:30 Const General: alert; No acute distress Eyes Conjunctivae: conjunctivae normal Resp Auscultation: clear to auscultation bilaterally Cardio Rate: regular rate Rhythm: regular rhythm GI Inspection: Yes normal to inspection Extrem General: Yes normal to inspection and No edema Office Procedures Flu Questionnaire Does the patient have a severe egg allergy?: No Does the patient have severe life threatening allergies?: No Does the patient have a fever or illness today?: No Has the patient ever had Guillain-[place] Syndrome?: No Has the patient ever had any past reaction to a flu shot?: No Immunizations flu vacc [id number] 6mos up(PF) 60 mcg(15 mcgx4)/0.5 mL IM syringe Performing Provider: Agustina Oconnell MD [facility] Administered by: MARCI Gross on 08/19/23 14:58 Dose Route Admin Location Dispensed Lot Number Expiration Date NDC [employer] 0.5 mL IM Right Deltoid 0.5 mL [id number] 02/27/24 [id number] [employer] VIS Given Date VIS Provided VIS Publication Date 08/19/23 Single Vaccine 21 Eligibility Eligibility Date Funding Source Not [facility] Eligible 08/19/23 Private Assessment and Plan Assessment & Plan (1) Tear of lateral meniscus of left knee: Code(s): S83.282A - Other tear of lateral meniscus, current injury, left knee, initial encounter Qualifiers: Meniscus tear of knee type: unspecified type Tear current or old: old Qualified Code(s): M23.201 - Derangement of unspecified lateral meniscus due to old tear or injury, left knee Plan: Patient was advised to follow-up with orthopedics (2) Overweight (BMI 25.0-29.9): Code(s): E66.3 - Overweight Plan: Diet and exercise (3) Cholelithiasis: Comment: Discovered incidentally on 05/2021 ultrasound Code(s): K80.20 - Calculus of gallbladder without cholecystitis without obstruction Plan: Low-fat diet and if causing problems to be seen by the surgeon (4) Obstructive sleep apnea: Comment: CPAP Code(s): G47.33 - Obstructive sleep apnea (adult) (pediatric) Plan: cannot tolerate the pressure on the JAYANT and so not using - would like to hold off treamtent/test but discussed the importance of treating this - effect on heart (5) Hypercholesterolemia: Code(s): E78.00 - Pure hypercholesterolemia, unspecified Plan: Avoid fried foods, chicken skin, eggs, butter margarine, pastries and meat. Be it pork or beef they have a lot of cholesterol patient is taking simvastatin 20 mg once a day (6) GERD (gastroesophageal reflux disease): Code(s): K21.9 - Gastro-esophageal reflux disease without esophagitis Plan: Avoid the foods that causes that usually spicy foods, tomato products, juices, coffee, soda and foods that your sensitive to. After eating do not lie down, allow 3-4 hours before in lie down. And keep the head of bed above 30 degrees to avoid the acid from going up. (7) Arthritis of right glenohumeral joint: Code(s): M19.011 - Primary osteoarthritis, right shoulder Plan: Continue to keep active avoid overuse/abuse (8) Pain in right shoulder: Code(s): M25.511 - Pain in right shoulder Plan: referral to ortho Orders: Orders Influenza [id number] Immunization Today Z23 - Encounter for immunization Referrals Orthopedics Referral M25.511 - Pain in right shoulder, S83.282A - Other tear of lateral meniscus, current injury, left knee, initial encounter Medications: Changed From tramadol 50 mg PO Q8H PRN 10 tabs 0RF pain M25.511 - Pain in right shoulder To tramadol 50 mg PO DAILY PRN 30 tabs 0RF pain M25.511 - Pain in right shoulder Coding Level of Care Code Est Pt Level 4 (71882) Diagnoses Old tear of lateral meniscus of left knee, unspecified tear type M23.201 Meniscus tear of knee type: unspecified type Tear current or old: old Overweight (BMI 25.0-29.9) E66.3 Cholelithiasis K80.20 Obstructive sleep apnea G47.33 Hypercholesterolemia E78.00 GERD (gastroesophageal reflux disease) K21.9 Arthritis of right glenohumeral joint M19.011 Pain in right shoulder M25.511
== END 2023-08-19 15:01 | disposition home or self-care (01) ==
PROVIDERS: PCP Internal Medicine; Visit Provider Internal Medicine
DX: M23.201 Derangement of unspecified lateral meniscus due to old tear or injury, left knee (principal); E66.3 Overweight; K80.20 Calculus of gallbladder without cholecystitis without obstruction; G47.33 Obstructive sleep apnea (adult) (pediatric); E78.00 Pure hypercholesterolemia, unspecified; K21.9 Gastro-esophageal reflux disease without esophagitis; M19.011 Primary osteoarthritis, right shoulder; M25.511 Pain in right shoulder; Z23 Encounter for immunization
CPT/HCPCS: 90471; 90686; 99214

== ENCOUNTER 2023-10-25 14:21 | Outpatient (AMB) | payer OTHER, SELFPAY ==
[2023-10-25 14:24] VITALS: BP 142/90; PULSE 86; O2SAT 99; BMI 26.9
--- NOTE | 2023-10-25 14:24 | A.OFFPC_ITS ---
Vital Signs 10/25/23 14:24 10/25/23 14:36 Height 5 ft 3 in Weight 152 lb BMI 26.9 BP 142/90 H 130/80 Blood Pressure Location Lt brachial Lt brachial Position Sitting Sitting Pulse 86 Pulse Source Pulse Oximeter Pulse Oximetry (%) 99 Oxygen Delivery Method Room Air Intake Visit Reasons: Obstructive sleep apnea, rescheduled from 07/26 Intake Note: Patient is here to follow up on JAYANT Photograph Retoucher Required: No Allergies raw vegetable [RAW VEGETABLE] Allergy (Intermediate, Verified 10/25/23 14:24) ITCHING Seasonal Allergies Allergy (Intermediate, Verified 10/25/23 14:24) Nasal congestion No Known Drug Allergies Allergy (Unknown, Verified 10/25/23 14:24) none Medication List - Last Reconciled 10/25/23 by Agustina Oconnell MD acetaminophen ER (Tylenol 8 Hour) 650 mg PO Q8H PRN ascorbate calcium (vitamin C) 500 mg PO DAILY aspirin 81 mg PO DAILY famotidine (Pepcid) 40 mg PO BEDTIME gabapentin 300 mg PO latanoprost 0.005% 1 drp ophthalmic (eye) BEDTIME meloxicam 15 mg PO DAILY ofloxacin 0.3% 1 drp ophthalmic (eye) QID omeprazole 20 mg PO .daily 90 days sennosides (senna) 17.2 mg (2 x 8.6 mg) PO BEDTIME 30 days sildenafil (Viagra) 100 mg PO DAILY PRN simvastatin 20 mg PO BEDTIME tramadol 50 mg PO DAILY PRN Tobacco use date assessed: 10/25/23 Dental Screening Dental Screen Date: 10/25/23 HPI Obstructive sleep apnea, rescheduled from 07/26 HPI Details 58-year-old overweight male with lateral meniscal tear of the left knee cholelithiasis obstructive sleep apnea but can not tolerate CPAP hypercholeste rolemia GERD and arthritis coming in for follow-up. Last seen in July 2023. Patient's colonoscopy is up-to-date. PAtient complains of weak and tired and no energy. PAtient feels anxious and no n no fever, no cp on exertion. No bowel bladder symptoms. Patient feels very anxious and declined any referral for counseling. Patient does not use the CPAP as he can not tolerate it. [facility] Medical History (Updated 10/25/23 @ 14:41 by Agustina Oconnell MD) Pain in right shoulder Osteoarthritis of left hip Chronic pain syndrome Spondylosis of lumbar spine Abnormal MRI BPH (benign prostatic hyperplasia) Erectile dysfunction Carpal tunnel syndrome Cholelithiasis Vitamin D deficiency Obstructive sleep apnea Hypercholesterolemia GERD (gastroesophageal reflux disease) Mixed incontinence Surgical History History of knee surgery History of endoscopy Hx of colonoscopy H/O carpal tunnel repair Hx of inguinal hernia repair Social History Household Members: Spouse Housing: House Are you a primary customer care coordinator to a significant other at home: No Do you presently have visiting nurse or other home services: No Alcohol intake: current Alcohol intake frequency: a few times a month Alcohol type: beer Patient Tobacco Use Status: Former Tobacco user Quit Date: 1989 Tobacco use type: Cigarette e-Cigarette/Vaping Use: Never Used Second Hand Smoke Exposure: No service: No Current occupational status: 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 How often do you have a drink containing alcohol?: 4 or more times a week 2. How many drinks containing alcohol do you have on a typical day when you are drinking?: 3 or 4 3. How often do you have six or more drinks on one occasion?: Never Total Score: 5 KAROLINE-7 AMB Questionnaire KAROLINE-7 Date KAROLINE - 7 assessed: 10/25/23 Source: Developed by Drs. Anderson Johnson, Dee Dee Stewart, Paresh Durant and colleagues, with an educational bia from [employer]. Physical exam (Primary Care) Vital Signs: Last Vital Signs Pulse 86 10/25/23 14:24 BP 142/90 H 10/25/23 14:24 Pulse Ox 99 10/25/23 14:24 Oxygen Delivery Method Room Air 10/25/23 14:24 BMI result Body Mass Index 26.9 Tobacco/Smoking Status: Tobacco use Status Tobacco use date assessed 10/25/23 10/25/23 14:30 Patient Tobacco Use Status Former Tobacco user 10/25/23 14:30 Tobacco use type Cigarette 02/26/24 14:30 e-Cigarette/Vaping Use Never Used 10/25/23 14:30 Thrive Assessment: Date of Thrive Assessment Date Thrive assessed 10/25/23 10/25/23 14:30 Const General: alert; No acute distress Eyes Conjunctivae: conjunctivae normal Resp Auscultation: clear to auscultation bilaterally Cardio Rate: regular rate Rhythm: regular rhythm GI Inspection: Yes normal to inspection Extrem General: Yes normal to inspection and No edema Assessment and Plan Assessment & Plan (1) Obstructive sleep apnea: Comment: CPAP Code(s): G47.33 - Obstructive sleep apnea (adult) (pediatric) Plan: Discussion with the patient regarding CPAP and obstructive sleep apnea (2) GERD (gastroesophageal reflux disease): Code(s): K21.9 - Gastro-esophageal reflux disease without esophagitis Plan: Avoid the foods that causes that usually spicy foods, tomato products, juices, c offee, soda and foods that your sensitive to. After eating do not lie down, allow 3-4 hours before in lie down. And keep the head of bed above 30 degrees to avoid the acid from going up. On famotidine and omeprazole (3) Hypercholesterolemia: Code(s): E78.00 - Pure hypercholesterolemia, unspecified Plan: Avoid fried foods, chicken skin, eggs, butter margarine, pastries and meat. Be it pork or beef they have a lot of cholesterol LDL goal of less than 130 and triglyceride of less than 150. Presently on simvastatin in the last blood work was December 2022 (4) BPH (benign prostatic hyperplasia): Code(s): N40.0 - Benign prostatic hyperplasia without lower urinary tract symptoms Plan: Stable (5) Impaired fasting glucose: Code(s): R73.01 - Impaired fasting glucose Plan: Decrease the amount of carbohydrate intake, pasta, bread, rice and potatoes are all sugar and that is aside from all the sweet stuff, remember that fruits are good but they are Sweet also. (6) Generalized anxiety disorder: Code(s): F41.1 - Generalized anxiety disorder Orders: Orders Complete Blood Count Auto Diff 3 Months K21.9 - Gastro-esophageal reflux disease without esophagitis Comprehensive Met. Panel 3 Months K21.9 - Gastro-esophageal reflux disease without esophagitis Free T4 (Free Thyroxine) 3 Months K21.9 - Gastro-esophageal reflux disease without esophagitis Lipid Panel 3 Months E78.00 - Pure hypercholesterolemia, unspecified, K21.9 - Gastro-esophageal reflux disease without esophagitis Prostate Specific Antigen Scr 3 Months K21.9 - Gastro-esophageal reflux disease without esophagitis Comprehensive Met. Panel Today F41.1 - Generalized anxiety disorder UA CC w/rflx Micro + Cult Today F41.1 - Generalized anxiety disorder, R30.0 - Dysuria Thyroid Stimulating Hormone 3 Months K21.9 - Gastro-esophageal reflux disease without esophagitis Vitamin B12 and Folate 3 Months K21.9 - Gastro-esophageal reflux disease without esophagitis Complete Blood Count Auto Diff Today F41.1 - Generalized anxiety disorder Thyroid Stimulating Hormone Today F41.1 - Generalized anxiety disorder Free T4 (Free Thyroxine) Today F41.1 - Generalized anxiety disorder Medications: New escitalopram oxalate 5 mg PO DAILY 30 tabs 3RF F41.1 - Generalized anxiety disorder Refilled sildenafil (Viagra) administer 30 minutes to 4 hours before activity 100 mg PO DAILY PRN 14 tabs 5RF sexual activity N52.9 - Male erectile dysfunction, unspecified Coding Level of Care Code Est Pt Level 4 (33049) Diagnoses Obstructive sleep apnea G47.33 GERD (gastroesophageal reflux disease) K21.9 Hypercholesterolemia E78.00 BPH (benign prostatic hyperplasia) N40.0 Impaired fasting glucose R73.01 Generalized anxiety disorder F41.1
[2023-10-25 14:36] VITALS: BP 130/80
== END 2023-10-25 14:47 | disposition home or self-care (01) ==
PROVIDERS: PCP Internal Medicine; Visit Provider Internal Medicine
DX: G47.33 Obstructive sleep apnea (adult) (pediatric) (principal); K21.9 Gastro-esophageal reflux disease without esophagitis; E78.00 Pure hypercholesterolemia, unspecified; N40.0 Benign prostatic hyperplasia without lower urinary tract symptoms; R73.01 Impaired fasting glucose; F41.1 Generalized anxiety disorder
CPT/HCPCS: 99214

== ENCOUNTER 2023-10-26 09:38 | Outpatient (REF) | payer OTHER, SELFPAY ==
[2023-10-26 09:58] LABS: MANUAL DIFF FLAG NO
[2023-10-26 10:33] LABS: Basophils Percent Auto 0.3 % (0-2); Hemoglobin 14.1 g/dl (14.0-18.0); Imm Gran Abs Auto 0.03 X10*3/uL (0.00-0.03); Imm Gran Pct Auto 0.8 % (0.0-0.4); Lymphocytes Absolute Auto 1.2 X10*3/uL (1.2-4.9); Lymphocytes Percent Auto 31.9 % (20-40); Mean Corpuscular HGB Conc 32.8 g/dl (31.0-36.0); Mean Corpuscular Volume 91.5 fL (80.0-98.0); Mean Platelet Volume 10.6 fL (9.4-12.4); Monocytes Absolute Auto 0.4 X10*3/uL (0.1-1.2); Monocytes Percent Auto 9.8 % (2-11); Neutrophils Absolute Auto 2.2 x10*3/uL (2.0-8.3); Neutrophils Percent Auto 56.2 % (45-73); Platelet Count 178 X10*3/uL (160-400); Red Cell Distribution Width 12.8 % (11.0-16.0); White Blood Count 3.9 X10*3/uL (4.8-10.8)
[2023-10-26 11:03] LABS: Appearance Urine Clear; Color Urine Yellow; Glucose Urine UA Negative (Negative); Leukocyte Esterase Urine Negative (Negative); Nitrite Urine Negative (Negative); Specific Gravity - Urine 1.025 (1.005-1.025); Urine Blood Negative (Negative); Urine Ketones Negative (Negative); Urine Protein Negative (Neg-Trace)
[2023-10-26 12:16] LABS: Alanine Aminotransferase 33 U/L (0-40); Alkaline Phosphatase 49 U/L (39-117); Anion Gap 11 (12-20); Aspartate Amino Transferase 25 U/L (5-37); Bilirubin Total 0.4 mg/dL (0.0-1.0); Blood Urea Nitrogen 15 mg/dL (9-16); Calcium 8.9 mg/dL (8.4-10.2); Carbon Dioxide 27 mmol/L (22-29); Chloride 106 mmol/L (96-108); Estimated Glomerular Filt Rate > 60; Glucose Random 100 mg/dL (60-115); Sodium 140 mmol/L (135-145); Total Protein 6.5 g/dL (6.5-8.0)
[2023-10-26 12:43] LABS: Free T4 (Free Thyroxine) 1.04 ng/dL (0.71-1.85); Thyroid Stimulating Hormone 1.13 uIU/mL (0.32-4.0)
== END 2023-10-26 09:39 | disposition home or self-care (01) ==
LOC: HO.LAB 09:38
PROVIDERS: PCP Internal Medicine; Visit Provider Internal Medicine
DX: R30.0 Dysuria (principal); F41.1 Generalized anxiety disorder
CPT/HCPCS: 36415; 80053; 81003; 84439; 84443; 85025

== ENCOUNTER 2023-12-31 07:59 | Outpatient (AMB) | payer OTHER, SELFPAY ==
--- NOTE | 2023-12-31 08:01 | A.OFFVIS_ITS ---
Vital Signs 12/31/23 08:13 Height 5 ft 3 in Weight 152 lb BMI 26.9 Handedness Right Intake Visit Reasons: New Pt - right shoulder pain Intake Note: Jack is a 58 year old male who presents today as a new patient for a evaluation of his right shoulder pain. Patient reports having ongoing pain for 3 - 6 months. Pain is focused on top of the shoulder and it radiates down to his bicep. Patient expresses his pain is worse when pulling and sleeping. He states that he was being treated in another office but he had a change of insurance which couldn't have him continue the care for his right shoulder. Patient informed me that he had a cortisone injection which gave him about a week of relief. He expresses that he has done P.T. but it didn't help him. Allergies raw vegetable [RAW VEGETABLE] Allergy (Intermediate, Verified 12/31/23 08:12) ITCHING Seasonal Allergies Allergy (Intermediate, Verified 12/31/23 08:12) Nasal congestion No Known Drug Allergies Allergy (Unknown, Verified 12/31/23 08:12) none HPI HPI New Pt - right shoulder pain: Details: 58-year-old male, who is Lao speaking, presents in the office today for an evaluation of right shoulder pain. Patient presented to the ED on 07/01/2023 with a complaint of chronic right shoulder pain for 2 weeks, with no history of trauma. Patient was not treated for this complaint and referred to his PCP. Patient presented to his PCP on 08/19/2023. He was instructed to avoid overuse or abuse of the right shoulder. While in the office today reports ongoing pain for 3-6 months. States the pain is focused on the top of the shoulder which radiates down to his bicep. He reports an increase in pain when pulling and sleeping. He reports being treated in a different office, but he had a change of insurance which caused him to change where he was receiving care. Patient has a history of cortisone injection with about a week of relief. He also reports participating in physical therapy with no relief. [facility] Medical History (Updated 12/31/23 @ 08:30 by Chiqui Shi) Pain in right shoulder Osteoarthritis of left hip Chronic pain syndrome Spondylosis of lumbar spine Abnormal MRI BPH (benign prostatic hyperplasia) Erectile dysfunction Carpal tunnel syndrome Cholelithiasis Vitamin D deficiency Obstructive sleep apnea Hypercholesterolemia GERD (gastroesophageal reflux disease) Mixed incontinence Surgical History History of knee surgery History of endoscopy Hx of colonoscopy H/O carpal tunnel repair Hx of inguinal hernia repair Social History Household Members: Spouse Housing: House Are you a primary healthcare management to a significant other at home: No Do you presently have visiting nurse or other home services: No Alcohol intake: current Alcohol intake frequency: a few times a month Alcohol type: beer Patient Tobacco Use Status: Former Tobacco user Quit Date: 1989 Tobacco use type: Cigarette e-Cigarette/Vaping Use: Never Used Second Hand Smoke Exposure: No service: No Current occupational status: employed Current occupation: [employer] Current occupational exposures/hazards: Yes (eisenberg, stressed) Cognitive needs: No Hearing needs: No Vision needs: No Review of Systems Const All systems reviewed & are unremarkable except as noted in HPI and below Physical Exam Vital Signs: BMI result Body Mass Index 26.9 Const General: cooperative and no acute distress Orientation/consciousness: patient oriented x3 Resp Effort & Inspection: normal respiratory effort and able to speak in complete sentences Cardio Peripheral pulses: Peripheral pulses 2+ throughout Skin General skin exam: no rashes or lesions noted Neuro General: patient oriented x3 Extrem Other: Right shoulder: Forward flexion and abduction full ROM. Significant pain with the last 45 degrees of forward flexion and abduction. Able to reach back pocket. Pain with cross-body reach. 4/5 strength with empty can. Negative drop arm. NVI. Assessment & Plan Assessment & Plan (1) Painful arc syndrome of right shoulder: Code(s): M75.101 - Unspecified rotator cuff tear or rupture of right shoulder, not spec ified as traumatic Category: Medical (2) Rotator cuff injury: Code(s): S46.009A - Unspecified injury of muscle(s) and tendon(s) of the rotator cuff of unspecified shoulder, initial encounter Category: Medical Qualifiers: Encounter type: initial encounter Laterality: right Qualified Code(s): S46.001A - Unspecified injury of muscle(s) and tendon(s) of the rotator cuff of right shoulder, initial encounter Plan Mr. Costa is a 58-year-old male, who is Lao speaking, presents in the office today for an evaluation of right shoulder pain. Patient presented to the ED on 07/01/2023 with a complaint of chronic right shoulder pain for 2 weeks, with no history of trauma. Patient was not treated for this complaint and referred to his PCP. Patient presented to his PCP on 08/19/2023. He was instructed to avoid overuse or abuse of the right shoulder. While in the office today reports ongoing pain for 3-6 months. States the pain is focused on the top of the shoulder which radiates down to his bicep. He reports an increase in pain when pulling and sleeping. He reports being treated in a different office, but he had a change of insurance which caused him to change where he was receiving care. Patient has a history of cortisone injection with about a week of relief. He also reports participating in physical therapy with no relief. Patient reports when he had his last cortisone injection about 3 months ago which gave him about 1.5 months of relief. He confirms he has completed a p hysical therapy course which helped increase his ROM but still lacks strength. He also continues to have pain, especially at night. An order for an MRI will be placed in the office today to evaluate the integrity of the right shoulder and to be used for possible surgical planning. Follow up will be after the MRI is obtained, or sooner if needed. X-rays of the right shoulder, obtained on 07/01/2023 revealed: The bone mineralization is normal. There is mild to moderate acromioclavicular degenerative change with loss of joint space and osteophyte formation. There is no fracture. The soft tissues are unremarkable. Orders: Orders MR shoulder RT wo con Today M75.101 - Unspecified rotator cuff tear or rupture of right shoulder, not specified as traumatic, S46.009A - Unspecified injury of muscle(s) and tendon(s) of the rotator cuff of unspecified shoulder, initial encounter Patient Instructions: Scribed by Chiqui Shi medical/surgery registered nurse, for Radha Batista PA-C on 12/31/2023 at 8:02 am, EST. Coding Level of Care Code New Pt Level 4 (23276) Diagnoses Painful arc syndrome of right shoulder M75.101 Injury of right rotator cuff, initial encounter S46.001A Encounter type: initial encounter Laterality: right
[2023-12-31 08:13] VITALS: BMI 26.9
== END 2023-12-31 08:22 | disposition home or self-care (01) ==
PROVIDERS: PCP Internal Medicine; Visit Provider Physician Assistant
DX: M75.101 Unspecified rotator cuff tear or rupture of right shoulder, not specified as traumatic (principal)
CPT/HCPCS: 99203

== ENCOUNTER → 2023-12-31 07:59 | Outpatient (BNVA) | payer OTHER, SELFPAY | PROVIDERS: PCP Internal Medicine; Visit Provider Physician Assistant | DX: M75.101 Unspecified rotator cuff tear or rupture of right shoulder, not specified as traumatic (principal); S46.001A Unspecified injury of muscle(s) and tendon(s) of the rotator cuff of right shoulder, initial encounter | CPT/HCPCS: 99202 ==

== ENCOUNTER 2024-01-27 07:16 | Outpatient (REF) | payer OTHER, SELFPAY ==
--- NOTE | ~2024-01-27 | MR_ITS ---
EXAMINATION: MR SHOULDER WITHOUT CONTRAST, RIGHT CLINICAL INFORMATION: Right shoulder pain and decreased range of motion. Axillary swelling. Pulling injury. COMPARISON: Right shoulder radiographs dated 07/01/2023. TECHNIQUE: MRI of the shoulder without contrast was performed on a high-field scanner. FINDINGS: ROTATOR CUFF: Complete versus near-complete full-thickness tear of the supraspinatus tendon with a few thin posterior bursal surface tendon fibers possibly remaining intact. Articular surface partial tearing extends through the anterior half of the infraspinatus tendon with tearing measuring up to 3.5 x 3.1 cm (AP by ML). The torn tendon fibers are retracted proximal to the humeral head apex. Lobulated fluid extends proximally along the infraspinatus myotendinous junction. Mild subscapularis tendinosis. Lobulated areas of low T1/T2 signal along the peripheral surface of the distal tendon with adjacent edema, consistent with calcific tendinitis. No muscle atrophy or fatty infiltration. BICEPS: Intact. CORACOACROMIAL ARCH: The undersurface of the acromion is flat with small subacromial spurs. Severe acromioclavicular osteoarthritis. LABRUM/CAPSULE: Along the inferior aspect of the labrum there is a 0.3 cm paralabral cyst, likely indicating an occult, nondisplaced undersurface inferior labral tear. Intact inferior joint capsule. GLENOHUMERAL JOINT/MARROW: Mild glenohumeral articular cartilage signal heterogeneity with tiny marginal osteophytes. Small joint effusion. MR/MR shoulder RT wo con IMPRESSION: 1. Complete versus near-complete full-thickness tear of the supraspinatus tendon with a few thin posterior bursal surface tendon fibers possibly remaining intact. Articular surface partial tearing extends through the anterior half of the infraspinatus tendon with tearing measuring 3.5 x 3.1 cm (AP x ML). The torn tendon fibers are retracted proximal to the humeral head apex. Lobulated fluid extends proximally along the infraspinatus myotendinous junction. 2. Mild subscapularis tendinosis with distal calcific tendinitis. 3. Severe acromioclavicular osteoarthritis with small subacromial spurs. 4. Probable nondisplaced undersurface tear of the inferior labrum with a 0.3 cm paralabral cyst. 5. Mild glenohumeral osteoarthritis and small joint effusion.
== END 2024-01-27 07:17 | disposition home or self-care (01) ==
LOC: HO.MRI 07:16
PROVIDERS: PCP Internal Medicine; Visit Provider Physician Assistant
DX: M75.101 Unspecified rotator cuff tear or rupture of right shoulder, not specified as traumatic (principal); S46.001A Unspecified injury of muscle(s) and tendon(s) of the rotator cuff of right shoulder, initial encounter
CPT/HCPCS: 73221

== ENCOUNTER 2024-01-29 08:28 | Outpatient (REF) | payer OTHER, SELFPAY ==
[2024-01-29 08:39] LABS: MANUAL DIFF FLAG NO
[2024-01-29 09:54] LABS: Basophils Percent Auto 0.2 % (0-2); Eosinophils Absolute Auto 0.1 X10*3/uL (0.0-0.4); Eosinophils Percent Auto 2.8 % (0-4); Hematocrit 42.8 % (42.0-52.0); Hemoglobin 14.6 g/dl (14.0-18.0); Imm Gran Abs Auto 0.01 X10*3/uL (0.00-0.03); Imm Gran Pct Auto 0.2 % (0.0-0.4); Lymphocytes Absolute Auto 1.6 X10*3/uL (1.2-4.9); Lymphocytes Percent Auto 33.9 % (20-40); Mean Corpuscular HGB Conc 34.1 g/dl (31.0-36.0); Mean Corpuscular Hemoglobin 29.7 pg (27.0-33.0); Mean Corpuscular Volume 87.2 fL (80.0-98.0); Mean Platelet Volume 10.6 fL (9.4-12.4); Monocytes Absolute Auto 0.4 X10*3/uL (0.1-1.2); Monocytes Percent Auto 8.8 % (2-11); Neutrophils Absolute Auto 2.5 x10*3/uL (2.0-8.3); Neutrophils Percent Auto 54.1 % (45-73); Platelet Count 196 X10*3/uL (160-400); Red Blood Count 4.91 X10*6/uL (4.60-5.80); Red Cell Distribution Width 12.4 % (11.0-16.0); White Blood Count 4.6 X10*3/uL (4.8-10.8)
[2024-01-29 10:32] LABS: Alanine Aminotransferase 28 U/L (0-40); Albumin Level 4.3 g/dL (3.5-5.0); Alkaline Phosphatase 60 U/L (39-117); Anion Gap 11 (12-20); Aspartate Amino Transferase 24 U/L (5-37); Bilirubin Total 0.6 mg/dL (0.0-1.0); Blood Urea Nitrogen 18 mg/dL (9-16); Calcium 9.4 mg/dL (8.4-10.2); Carbon Dioxide 27 mmol/L (22-29); Chloride 106 mmol/L (96-108); Cholesterol 244 mg/dL (<200); Estimated Glomerular Filt Rate > 60; Glucose Random 96 mg/dL (60-115); HDL Cholesterol 49 mg/dL (>40); LDL Cholesterol Calculated 177 mg/dL (<100); Sodium 140 mmol/L (135-145); Triglycerides 90 mg/dL (<150)
[2024-01-29 10:55] LABS: Free T4 (Free Thyroxine) 0.99 ng/dL (0.71-1.85); Thyroid Stimulating Hormone 1.04 uIU/mL (0.32-4.0)
[2024-01-29 11:54] LABS: Folate 10.1 ng/mL (> or = 4.0); Prostate Specific Antigen Scr 4.52 ng/mL (<0.05-4.0); Vitamin B12 757 pg/mL (200-900)
== END 2024-01-29 08:29 | disposition home or self-care (01) ==
LOC: HO.LAB 08:28
PROVIDERS: PCP Internal Medicine; Visit Provider Internal Medicine
DX: K21.9 Gastro-esophageal reflux disease without esophagitis (principal); E78.00 Pure hypercholesterolemia, unspecified
CPT/HCPCS: 36415; 80053; 80061; 82607; 82746; 84153; 84439; 84443; 85025

== ENCOUNTER 2024-02-01 09:30 | Outpatient (AMB) | payer OTHER, SELFPAY ==
[2024-02-01 09:30] VITALS: BP 130/78; PULSE 71; O2SAT 98; BMI 26.9
--- NOTE | 2024-02-01 09:30 | A.OFFPC_ITS ---
Vital Signs 02/01/24 09:30 Height 5 ft 3 in Weight 152 lb 0.4 oz BMI 26.9 BP 130/78 Blood Pressure Location Lt brachial Position Sitting Pulse 71 Pulse Source Pulse Oximeter Pulse Oximetry (%) 98 Oxygen Delivery Method Room Air Intake Visit Reasons: KAROLINE- NEEDS PHQ9 + THRIVE Dental Office Receptionist Required: No Allergies raw vegetable [RAW VEGETABLE] Allergy (Intermediate, Verified 02/01/24 09:30) ITCHING Seasonal Allergies Allergy (Intermediate, Verified 02/01/24 09:30) Nasal congestion No Known Drug Allergies Allergy (Unknown, Verified 02/01/24 09:30) none Tobacco use date assessed: 02/01/24 Dental Screening Dental Screen Date: 10/25/23 HPI KAROLINE- NEEDS PHQ9 + THRIVE HPI Details 58-year-old male with a history of obstr uctive sleep apnea GERD hypercholesterolemia BPH impaired glucose tolerance and generalized anxiety disorder last seen in 10/19/2023. Patient is up-to-date with colonoscopy. Review of the notes had an MRI of the right shoulder under Orthopedics results showing complete or near complete full-thickness tear of the supraspinatus tendon with a few thin posterior bursal surface tendon fibers possibly remaining intact. Articular surface partial tearing extends to the anterior half of the infraspinatus tendon with tearing torn tendon fibers are retracted proximally to the head of the humerus. Severe acromioclavicular arthritis. Probable nondisplaced undersurface tear of the inferior labrum with assist mild glenohumeral osteoarthritis PFSH Medical History (Updated 02/01/24 @ 10:04 by Agustina Oconnell MD) Pain in right shoulder Rotator cuff injury Osteoarthritis of left hip Chronic pain syndrome Spondylosis of lumbar spine Abnormal MRI BPH (benign prostatic hyperplasia) Erectile dysfunction Carpal tunnel syndrome Cholelithiasis Vitamin D deficiency Obstructive sleep apnea Hypercholesterolemia GERD (gastroesophageal reflux disease) Mixed incontinence Surgical History History of knee surgery History of endoscopy Hx of colonoscopy H/O carpal tunnel repair Hx of inguinal hernia repair Social History Household Members: Spouse Housing: House Are you a primary healthcare consulting manager to a significant other at home: No Do you presently have visiting nurse or other home services: No Alcohol intake: current Alcohol intake frequency: a few times a month Alcohol type: beer Patient Tobacco Use Status: Former Tobacco user Tobacco use type: Cigarette e-Cigarette/Vaping Use: Never Used Second Hand Smoke Exposure: No service: No Current occupational status: employed Current occupation: [employer] Current occupational exposures/hazards: Yes (eisenberg, stressed) Cognitive needs: No Hearing needs: No Vision needs: No Questionnaire PHQ-9 Over the last 2 weeks, how often have you been bothered by any of the following problems? 1. Little interest or pleasure in doing things: not at all 2. Feeling down, depressed, or hopeless: not at all 3. Trouble falling or staying asleep, or sleeping too much: not at all 4. Feeling tired or having little energy: not at all 5. Poor appetite or overeating: not at all 6. Feeling bad about yourself - or that you are a failure or have let yourself or your family down: not at all 7. Trouble concentrating on things, such as reading the newspaper or watching television: not at all 8. Moving or speaking so slowly that other people could have noticed. Or the opposite - being so fidgety or restless that you have been moving around a lot more than usual: not at all 9. Thoughts that you would be better off or of hurting yourself in some way: not at all Total score: 0 Depression Screening Interpretation: Negative Depression Screening Done: Yes [id number] - PHQ-9 Billing: Yes Source: Developed by Drs. Anderson Johnson, Dee Dee Stewart, Paresh Durant and colleagues, with an educational bia from [employer]. Thrive Questionnaire Date Thrive assessed: 02/01/24 I am a: Patient What is your living situation today?: I have a steady place to live Within the past 12 months, did the food you bought not last and you didn't have the money to get more?: Never true Within the past 12 months, did you worry whether your food would run out before you got money to buy more?: Never true Do you have trouble paying for medicines?: No Do you have trouble getting transportation to medical appointments?: No Do you have trouble paying your heating and electricity bill?: No Do you have trouble taking care of your child, family member or friend?: No Do you have trouble with day-to-day activities such as bathing, preparing meals, shopping, managing finances, etc.?: No Are you currently unemployed and looking for a job?: No Are you interested in more education?: No Please select the resources that you would like help with: None Currently or been in a relationship where the following occur: no concerns reported THRIVE Score: 0 AUDIT C Alcohol Use Questionnaire (AUDIT-C) 1. How often do you have a drink containing alcohol?: 4 or more times a week 2. How many drinks containing alcohol do you have on a typical day when you are drinking?: 3 or 4 3. How often do you have six or more drinks on one occasion?: Never Total Score: 5 KAROLINE-7 AMB Questionnaire KAROLINE-7 Date KAROLINE - 7 assessed: 02/01/24 Feeling nervous, anxious, or on edge: 0 = Not at all Not being able to stop or control worryin = Not at all Worrying too much about different things: 0 = Not at all Trouble relaxin = Not at all Being so restless that it is hard to sit still: 0 = Not at all Becoming easily annoyed or irritable: 0 = Not at all Feeling afraid as if something awful might happen: 0 = Not at all Total KAROLINE-7 score (0-4 normal; 5-9 mild; 10-14 moderate; 15-21 severe): 0 Source: Developed by Drs. Anderson Johnson, Dee Dee Stewart, Paresh Durnat and colleagues, with an educational bia from [employer]. Physical exam (Primary Care) Vital Signs: Last Vital Signs Pulse 71 02/01/24 09:30 BP 130/78 02/01/24 09:30 Pulse Ox 98 02/01/24 09:30 Oxygen Delivery Method Room Air 02/01/24 09:30 BMI result Body Mass Index 26.9 Tobacco/Smoking Status: Tobacco use Status Tobacco use date assessed 02/01/24 02/01/24 09:35 Patient Tobacco Use Status Former Tobacco user 02/01/24 09:35 Tobacco use type Cigarette 02/01/24 09:35 e-Cigarette/Vaping Use Never Used 02/01/24 09:35 PHQ-9: PHQ-9 Score PHQ-9: Total score 0 02/01/24 09:35 Depression Screening Interpretation: Negative Thrive Assessment: Date of Thrive Assessment Date Thrive assessed 02/01/24 02/01/24 09:35 Currently or been in a relationship where the following occur: no concerns reported Const General: alert; No acute distress Eyes Conjunctivae: conjunctivae normal Resp Auscultation: clear to auscultation bilaterally Cardio Rate: regular rate Rhythm: regular rhythm GI Inspection: Yes normal to inspection Assessment and Plan Assessment & Plan (1) Painful arc syndrome of right shoulder: Comment: December 2023. Complete versus near-complete full-thickness tear of the supraspinatus tendon with a few thin posterior bursal surface tendon fibers possibly remaining intact. Articular surface partial tearing extends through the anterior half of the infraspinatus tendon with tearing measuring 3.5 x 3.1 cm (AP x ML). The torn tendon fibers are retracted proximal to the humeral head apex. Lobulated fluid extends proximally along the infraspinatus myotendinous junction. 2. Mild subscapularis tendinosis with distal calcific tendinitis. 3. Severe acromioclavicular osteoarthritis with small subacromial spurs. 4. Probable nondisplaced undersurface tear of the inferior labrum with a 0.3 cm paralabral cyst. 5. Mild glenohumeral osteoarthritis and small joint effusion. Code(s): M75.101 - Unspecified rotator cuff tear or rupture of right shoulder, not specified as traumatic Plan: Patient is presently being followed up by orthopedics had an MRI done showing tear of the supraspinatus tendon does have severe acromioclavicular osteoarthritis (2) BPH (benign prostatic hyperplasia): Code(s): N40.0 - Benign prostatic hyperplasia without lower urinary tract symptoms (3) Obstructive sleep apnea: Comment: CPAP Code(s): G47.33 - Obstructive sleep apnea (adult) (pediatric) (4) Hypercholesterolemia: Code(s): E78.00 - Pure hypercholesterolemia, unspecified Plan: Avoid fried foods, chicken skin, eggs, butter margarine, pastries and meat. Be it pork or beef they have a lot of cholesterol LDL goal of less than 130 and triglyceride of less than 150 (5) GERD (gastroesophageal reflux disease): Code(s): K21.9 - Gastro-esophageal reflux disease without esophagitis Plan: Avoid the foods that causes that usually spicy foods, tomato products, juices, coffee, soda and foods that your sensitive to. After eating do not lie down, allow 3-4 hours before in lie down. And keep the head of bed above 30 degrees to avoid the acid from going up. (6) PSA elevation: Code(s): R97.20 - Elevated prostate specific antigen [PSA] Plan: Advised patient to retest this. (7) Arthritis of right acromioclavicular joint: Comment: December 2023. Complete versus near-complete full-thickness tear of the supraspinatus tendon with a few thin posterior bursal surface tendon fibers possibly remaining intact. Articular surface partial tearing extends through the anterior half of the infraspinatus tendon with tearing measuring 3.5 x 3.1 cm (AP x ML). The torn tendon fibers are retracted proximal to the humeral head apex. Lobulated fluid extends proximally along the infraspinatus myotendinous junction. 2. Mild subscapularis tendinosis with distal calcific tendinitis. 3. Severe acromioclavicular osteoarthritis with small subacromial spurs. 4. Probable nondisplaced undersurface tear of the inferior labrum with a 0.3 cm paralabral cyst. 5. Mild glenohumeral osteoarthritis and small joint effusion. Code(s): M19.011 - Primary osteoarthritis, right shoulder Plan: patient follows up with orthopedics (8) Generalized anxiety disorder: Code(s): F41.1 - Generalized anxiety disorder Plan: Continue with present medication on Lexapro. Orders: Orders PSA,Total (Free>4and<10) Today R97.20 - Elevated prostate specific antigen [PSA] Lipid Panel 3 Months E78.00 - Pure hypercholesterolemia, unspecified Comprehensive Met. Panel 3 Months E78.00 - Pure hypercholesterolemia, unspecified Coding Level of Care Code Est Pt Level 4 (87922) Complex EM visit Add On G2211 Diagnoses Painful arc syndrome of right shoulder M75.101 BPH (benign prostatic hyperplasia) N40.0 Obstructive sleep apnea G47.33 Hypercholesterolemia E78.00 GERD (gastroesophageal reflux disease) K21.9 PSA elevation R97.20 Arthritis of right acromioclavicular joint M19.011 Generalized anxiety disorder F41.1
== END 2024-02-01 10:19 | disposition home or self-care (01) ==
PROVIDERS: PCP Internal Medicine; Visit Provider Internal Medicine
DX: M75.101 Unspecified rotator cuff tear or rupture of right shoulder, not specified as traumatic (principal); N40.0 Benign prostatic hyperplasia without lower urinary tract symptoms; G47.33 Obstructive sleep apnea (adult) (pediatric); E78.00 Pure hypercholesterolemia, unspecified; K21.9 Gastro-esophageal reflux disease without esophagitis; R97.20 Elevated prostate specific antigen [PSA]; M19.011 Primary osteoarthritis, right shoulder; F41.1 Generalized anxiety disorder
CPT/HCPCS: 99214; G2211

== ENCOUNTER 2024-02-07 08:04 | Outpatient (REF) | payer OTHER, SELFPAY ==
[2024-02-07 09:37] LABS: PSA,Total (Free>4and<10) 4.38 ng/mL (0.00-4.00)
[2024-02-09 11:09] LABS: Free Prostate Spec Ag 0.6 ng/mL; Percent Free Prostate Spec Ag 14 % (calc) (>25); Prostate Specific Ag Total 4.2 ng/mL (< OR = 4.0)
== END 2024-02-07 08:05 | disposition home or self-care (01) ==
LOC: HO.LAB 08:04
PROVIDERS: PCP Internal Medicine; Visit Provider Internal Medicine
DX: R97.20 Elevated prostate specific antigen [PSA] (principal)
CPT/HCPCS: 36415; 84153; 84154

== ENCOUNTER 2024-02-10 13:44 | Outpatient (AMB) | payer OTHER, SELFPAY ==
[2024-02-10 13:51] VITALS: BMI 26.9
--- NOTE | 2024-02-10 13:51 | MHC.OFFVIS ---
Vital Signs 02/10/24 13:51 Height 5 ft 3 in Weight 152 lb BMI 26.9 Intake Visit Reasons: OV-Right shoulder MRI review Intake Note: Jack is a 58 year old male who presents today for a MRI review of his right shoulder. Patient reports he is doing well. He states taking tramadol is helping with his pain. Allergies raw vegetable [RAW VEGETABLE] Allergy (Intermediate, Verified 02/01/24 09:30) ITCHING Seasonal Allergies Allergy (Intermediate, Verified 02/01/24 09:30) Nasal congestion No Known Drug Allergies Allergy (Unknown, Verified 02/01/24 09:30) none HPI HPI OV-Right shoulder MRI review: Details: 58-year-old male who presents in the office today for a follow-up of right shoulder pain and review of his MRI results. While in the office today the patient reports he is doing well, but he is taking tramadol for pain. The patient states he will need to discuss a good time frame with his employer to move forward with surgical intervention. [facility] Medical History (Updated 02/10/24 @ 15:19 by Radha Batista PA-C) Pain in right shoulder Rotator cuff injury Osteoarthritis of left hip Chronic pain syndrome Spondylosis of lumbar spine Abnormal MRI BPH (benign prostatic hyperplasia) Erectile dysfunction Carpal tunnel syndrome Cholelithiasis Vitamin D deficiency Obstructive sleep apnea Hypercholesterolemia GERD (gastroesophageal reflux disease) Mixed incontinence Surgical History History of knee surgery History of endoscopy Hx of colonoscopy H/O carpal tunnel repair Hx of inguinal hernia repair Social History Household Members: Spouse Housing: House Are you a primary pharmacist critical care to a significant other at home: No Do you presently have visiting nurse or other home services: No Alcohol intake: current Alcohol intake frequency: a few times a month Alcohol type: beer Patient Tobacco Use Status: Former Tobacco user Tobacco use type: Cigarette e-Cigarette/Vaping Use: Never Used Second Hand Smoke Exposure: No service: No Current occupational status: 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, stressed) Cognitive needs: No Hearing needs: No Vision needs: No Review of Systems Const All systems reviewed & are unremarkable except as noted in HPI and below Physical Exam Vital Signs: BMI result Body Mass Index 26.9 Const General: cooperative, healthy appearing and no acute distress Resp Effort & Inspection: normal respiratory effort and able to speak in complete sentences Cardio Rate: regular rate Peripheral pulses: Peripheral pulses 2+ throughout GI Palpation (GI): Soft to palpation Skin Lesions: no lesions Rashes: no rashes Extrem Other: Right shoulder: Forward flexion and abduction full ROM. Significant pain with the last 45 degrees of forward flexion and abduction. Able to reach back pocket. Pain with cross-body reach. 4/5 strength with empty can. Negative drop arm. NVI. Assessment & Plan Assessment & Plan (1) Painful arc syndrome of right shoulder: Code(s): M75.101 - Unspecified rotator cuff tear or rupture of right shoulder, not specified as traumatic Category: Medical (2) Rotator cuff injury: Code(s): S46.009A - Unspecified injury of muscle(s) and tendon(s) of the rotator cuff of unspecified shoulder, initial encounter Category: Medical Qualifiers: Encounter type: initial encounter Laterality: right Qualified Code(s): S46.001A - Unspecified injury of muscle(s) and tendon(s) of the rotator cuff of right shoulder, initial encounter (3) Rotator cuff tear, right: Code(s): M75.101 - Unspecified rotator cuff tear or rupture of right shoulder, not specified as traumatic Category: Medical Plan Mr. Costa is a 58-year-old male who presents in the office today for a follow-up of right shoulder pain and review of his MRI results. While in the office today the patient reports he is doing well, but he is taking tramadol for pain. The patient states he will need to discuss a good time frame with his employer to move forward with surgical intervention. I discussed in detail the procedure, right rotator cuff repair, and what to expect pre and post operatively. We discussed the risks, benefits and alternatives to the surgery and the rehabilitation course. The risks include infection, bleeding, nerve injury, ongoing pain, swelling, and stiffness, perioperative risk of injury to bones and soft tissues, and blood clots. My business card was given to the patient in the office today. He will call the office after he figures out a good time to have the surgery with his provider. The patient will return for a more detailed discussion with Dr. Mota, or sooner if needed. MRI of the right shoulder, obtained on 01/27/2024, 1. Complete versus near-complete full-thickness tear of the supraspinatus tendon with a few thin posterior bursal surface tendon fibers possibly remaining intact. Articular surface partial tearing extends through the anterior half of the infraspinatus tendon with tearing measuring 3.5 x 3.1 cm (AP x ML). The torn tendon fibers are retracted proximal to the humeral head apex. Lobulated fluid extends proximally along the infraspinatus myotendinous junction. 2. Mild subscapularis tendinosis with distal calcific tendinitis. 3. Severe acromioclavicular osteoarthritis with small subacromial Spurs. 4. Probable nondisplaced undersurface tear of the inferior labrum with a 0.3 cm paralabral cyst. 5. Mild glenohumeral osteoarthritis and small joint effusion. Patient Instructions: Scribed by Chiqui Shi vice president medical affairs, for Radha Batista PA-C on 02/10/2024 at 1:42 pm, EST. Coding Level of Care Code Est Pt Level 4 (81023) Diagnoses Painful arc syndrome of right shoulder M75.101 Injury of right rotator cuff, initial encounter S46.001A Encounter type: initial encounter Laterality: right Rotator cuff tear, right M75.101
== END 2024-02-10 14:16 | disposition home or self-care (01) ==
PROVIDERS: PCP Internal Medicine; Visit Provider Physician Assistant
DX: M75.101 Unspecified rotator cuff tear or rupture of right shoulder, not specified as traumatic (principal); S46.001A Unspecified injury of muscle(s) and tendon(s) of the rotator cuff of right shoulder, initial encounter
CPT/HCPCS: 99214

== ENCOUNTER → 2024-02-10 13:44 | Outpatient (BNVA) | payer OTHER, SELFPAY | PROVIDERS: PCP Internal Medicine; Visit Provider Physician Assistant | DX: S46.001A Unspecified injury of muscle(s) and tendon(s) of the rotator cuff of right shoulder, initial encounter (principal); M75.101 Unspecified rotator cuff tear or rupture of right shoulder, not specified as traumatic | CPT/HCPCS: 99212 ==

== ENCOUNTER 2024-02-25 10:23 | Outpatient (AMB) | payer OTHER, SELFPAY ==
[2024-02-25 11:21] VITALS: BMI 26.9
--- NOTE | 2024-02-25 11:21 | A.OFFVIS_ITS ---
Vital Signs 02/25/24 11:21 Height 5 ft 3 in Weight 152 lb BMI 26.9 Intake Visit Reasons: OV-Right shoulder pain-discuss surgery Intake Note: Jack is a 58 year old right hand dominant, Latvian speaking male who presents today for discussion of possible surgical intervention of the right shoulder. Director Safety Council Required: Yes Director Safety Council Language: Latvian Allergies raw vegetable [RAW VEGETABLE] Allergy (Intermediate, Verified 02/25/24 11:26) ITCHING Seasonal Allergies Allergy (Intermediate, Verified 02/25/24 11:26) Nasal congestion No Known Drug Allergies Allergy (Unknown, Verified 02/25/24 11:26) none HPI HPI OV-Right shoulder pain-discuss surgery: Details: 3 months of right shoulder pain that has not responded to PT. Here from review of MRI and discussion of treatment options. He feels he cannot engage in daily activities without pain. His pain is sub-deltoid and worse with lifting/overhead activity. [facility] Medical History Pain in right shoulder Rotator cuff injury Osteoarthritis of left hip Chronic pain syndrome Spondylosis of lumbar spine Abnormal MRI BPH (benign prostatic hyperplasia) Erectile dysfunction Carpal tunnel syndrome Cholelithiasis Vitamin D deficiency Obstructive sleep apnea Hypercholesterolemia GERD (gastroesophageal reflux disease) Mixed incontinence Surgical History History of knee surgery History of endoscopy Hx of colonoscopy H/O carpal tunnel repair Hx of inguinal hernia repair Social History Household Members: Spouse Housing: House Are you a primary child care teacher to a significant other at home: No Do you presently have visiting nurse or other home services: No Alcohol intake: current Alcohol intake frequency: a few times a month Alcohol type: beer Patient Tobacco Use Status: Former Tobacco user Tobacco use type: Cigarette e-Cigarette/Vaping Use: Never Used Second Hand Smoke Exposure: No service: No Current occupational status: employed Current occupation: [employer] Current occupational exposures/hazards: Yes (eisenberg, stressed) Cognitive needs: No Hearing needs: No Vision needs: No Physical Exam Vital Signs: BMI result Body Mass Index 26.9 Extrem Other: 30/90/120/L1 4/5 EC neg lag neg liftoff Results Reviewed Results Reviewed: I personally reviewed the MR images. Complete versus near-complete full-thickness tear of the supraspinatus tendon with a few thin posterior bursal surface tendon fibers possibly remaining intact. Articular surface partial tearing extends through the anterior half of the infraspinatus tendon with tearing measuring 3.5 x 3.1 cm (AP x ML). The torn tendon fibers are retracted proximal to the humeral head apex. Lobulated fluid extends proximally along the infraspinatus myotendinous junction. 2. Mild subscapularis tendinosis with distal calcific tendinitis. 3. Severe acromioclavicular osteoarthritis with small subacromial spurs. 4. Probable nondisplaced undersurface tear of the inferior labrum with a 0.3 cm paralabral cyst. 5. Mild glenohumeral osteoarthritis and small joint effusion. Assessment & Plan Assessment & Plan (1) Rotator cuff tear, right: Code(s): M75.101 - Unspecified rotator cuff tear or rupture of right shoulder, not specified as traumatic Category: Medical Plan: Retracted full thickness RTC tear with no atrophy. I recommend surgical repair. I discussed the risks benefits and alternatives including but not limited to the risk of pain, infection, stiffness, expected recovery time, need for further surgery as well as potential medical complications. He expressed understanding and we will proceed forward accordingly. Coding Level of Care Code Est Pt Level 4 (59977) Diagnoses Rotator cuff tear, right M75.101
== END 2024-02-25 11:45 | disposition home or self-care (01) ==
PROVIDERS: PCP Internal Medicine; Visit Provider Orthopaedic Surgery
DX: M75.101 Unspecified rotator cuff tear or rupture of right shoulder, not specified as traumatic (principal)
CPT/HCPCS: 99214

== ENCOUNTER → 2024-02-25 10:23 | Outpatient (BNVA) | payer OTHER, SELFPAY | PROVIDERS: PCP Internal Medicine; Visit Provider Orthopaedic Surgery | DX: M75.101 Unspecified rotator cuff tear or rupture of right shoulder, not specified as traumatic (principal) | CPT/HCPCS: 99212 ==

== ENCOUNTER 2024-03-08 09:27 | Day surgery (SDC) | payer OTHER, SELFPAY ==
--- NOTE | 2024-03-07 08:25 | HO.ANESPROP2 ---
Documented by User: Alise Burgos NP 03/07/24 08:26 HPI - Anesthesia Eval Consult details Narrative: 58yo M for Right Shoulder Rotator Cuff Repair PMFSH Active Problems Active Problems: All Active Problems Rotator cuff tear, right (Acute) Arthritis of right acromioclavicular joint (Acute) PSA elevation (Acute) Painful arc syndrome of right shoulder (Acute) Generalized anxiety disorder (Acute) Arthritis of right glenohumeral joint (Acute) Erosive esophagitis (Acute) Tear of lateral meniscus of left knee (Acute) Illiterate (Acute) Impaired fasting glucose (Acute) Odynophagia (Acute) Pre-op examination (Acute) Erectile dysfunction (Acute) Overweight (BMI 25.0-29.9) (Acute) Frequency of micturition (Acute) Osteoarthritis of left hip (Acute) Chronic pain syndrome (Acute) Spondylosis of lumbar spine (Acute) BPH (benign prostatic hyperplasia) (Acute) Tubular adenoma of colon (Acute) Carpal tunnel syndrome (Acute) Cholelithiasis (Acute) Obstructive sleep apnea (Acute) Hypercholesterolemia (Acute) GERD (gastroesophageal reflux disease) (Acute) Past Medical History Medical History Pain in right shoulder Rotator cuff injury Osteoarthritis of left hip Chronic pain syndrome Spondylosis of lumbar spine Abnormal MRI BPH (benign prostatic hyperplasia) Erectile dysfunction Carpal tunnel syndrome Cholelithiasis Vitamin D deficiency Obstructive sleep apnea Hypercholesterolemia GERD (gastroesophageal reflux disease) Mixed incontinence Family History Family history of problems with anesthesia: No Surgical History Surgical History History of knee surgery History of endoscopy Hx of colonoscopy H/O carpal tunnel repair Hx of inguinal hernia repair History of Problems with Anesthesia: No Social History Social History Household Members: Spouse Housing: House Are you a primary early breastfeeding care specialist to a significant other at home: No Do you presently have visiting nurse or other home services: No Alcohol intake: current Alcohol intake frequency: former alcohol drinker Alcohol type: beer Patient Tobacco Use Status: Former Tobacco user Tobacco use type: Cigarette e-Cigarette/Vaping Use: Never Used Second Hand Smoke Exposure: No Use of substances other than those prescribed or required for medical reasons: No Are you DNR?: No Advance Directives: No Advance Directives Information Provided: Yes service: No Current occupational status: 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, 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) Cognitive needs: No Hearing needs: No Vision needs: No Meds Allergies Allergy/AdvReac Type Severity Reaction Status Date / Time raw vegetable [RAW VEGETABLE] Allergy Intermediate ITCHING Verified 02/25/24 11:26 Seasonal Allergies Allergy Intermediate Nasal Verified 02/25/24 11:26 congestion No Known Drug Allergies Allergy Unknown none Verified 02/25/24 11:26 Home Medications ?Medication ?Instructions ?Recorded ?Confirmed ?Last Taken ?Type aspirin 81 mg tablet,delayed 81 mg PO DAILY 10/29/20 10/25/23 Unknown History release ascorbate calcium (vitamin C) 500 500 mg PO DAILY 04/28/21 10/25/23 Unknown History mg tablet latanoprost 0.005 % eye drops 1 drp ophthalmic (eye) BEDTIME 04/23/23 10/25/23 Unknown History gabapentin 300 mg capsule 300 mg PO 05/12/23 10/25/23 Unknown History meloxicam 15 mg tablet 15 mg PO DAILY 05/12/23 10/25/23 Unknown History Exam Pertinent Lab Results Pertinent Lab Results: Laboratory Tests 01/29/24 08:38 WBC 4.6 L Hgb 14.6 Hct 42.8 Plt Count 196 Sodium 140 Potassium 4.0 Chloride 106 Carbon Dioxide 27 BUN 18 H Creatinine 0.84 Assessment and Plan Final Anesthetic Review Family History of Problems with Anesthesia: No History of Problems with Anesthesia: No Documented by User: Adelaida Neil MD 03/08/24 10:29 [facility] Past Medical History Medical History Pain in right shoulder Rotator cuff injury Osteoarthritis of left hip Chronic pain syndrome Spondylosis of lumbar spine Abnormal MRI BPH (benign prostatic hyperplasia) Erectile dysfunction Carpal tunnel syndrome Cholelithiasis Vitamin D deficiency Obstructive sleep apnea Hypercholesterolemia GERD (gastroesophageal reflux disease) Mixed incontinence Surgical History Surgical History History of knee surgery History of endoscopy Hx of colonoscopy H/O carpal tunnel repair Hx of inguinal hernia repair Social History Social History Household Members: Spouse Housing: House Are you a primary early breastfeeding care specialist to a significant other at home: No Do you presently have visiting nurse or other home services: No Alcohol intake: current Alcohol intake frequency: former alcohol drinker Alcohol type: beer Patient Tobacco Use Status: Former Tobacco user Tobacco use type: Cigarette e-Cigarette/Vaping Use: Never Used Second Hand Smoke Exposure: No Use of substances other than those prescribed or required for medical reasons: No Are you DNR?: No Advance Directives: No Advance Directives Information Provided: Yes service: No Current occupational status: 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, 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) Cognitive needs: No Hearing needs: No Vision needs: No Meds Allergies Allergy/AdvReac Type Severity Reaction Status Date / Time raw vegetable [RAW VEGETABLE] Allergy Intermediate ITCHING Verified 02/25/24 11:26 Seasonal Allergies Allergy Intermediate Nasal Verified 02/25/24 11:26 congestion No Known Drug Allergies Allergy Unknown none Verified 02/25/24 11:26 Home Medications ?Medication ?Instructions ?Recorded ?Confirmed ?Last Taken ?Type aspirin 81 mg tablet,delayed 81 mg PO DAILY 10/29/20 10/25/23 Unknown History release ascorbate calcium (vitamin C) 500 500 mg PO DAILY 04/28/21 10/25/23 Unknown History mg tablet latanoprost 0.005 % eye drops 1 drp ophthalmic (eye) BEDTIME 04/23/23 10/25/23 Unknown History gabapentin 300 mg capsule 300 mg PO 05/12/23 10/25/23 Unknown History meloxicam 15 mg tablet 15 mg PO DAILY 05/12/23 10/25/23 Unknown History Exam Airway Mallampati Class: II TM Dist: >3cm Neck ROM: Full Heart: rrr Lungs: cta Assessment and Plan Assessment Anesthesia Assessment: Anesthesia Plan Discussed Final Anesthetic Review NPO: Yes ASA Class: III (brenda) Final Preanesthetic Review: No Changes in Pt Med Stat, Meds/Allgs Chart Reviewed, Consent Obtained/Reviewed and Anes Risks/Benef Reviewed Patient Risk: Intermediate Procedure Risk: Intermediate Anesthetic Plan Anesthetic Plan: GA and Regional Block Disposition: Standard PACU
--- NOTE | 2024-03-08 09:29 | ECG_ITS ---
Test Reason : pre op Blood Pressure : / mmHG Vent. Rate : 067 BPM Atrial Rate : 067 BPM P-R Int : 168 ms QRS Dur : 088 ms QT Int : 374 ms P-R-T Axes : 054 007 022 degrees QTc Int : 395 ms Normal sinus rhythm Normal ECG When compared with ECG of 20-AUG-2009 09:58, No significant change was found Referred By: Alise Burgos Electronically Signed By:Yonatan Garcia
[2024-03-08 09:44] VITALS: BMI 27.5
[2024-03-08 10:05] VITALS: BP 120/83; PULSE 73; RESP 16; TEMP 36.7; O2SAT 97
[2024-03-08] MEDS: Lactated Ringers 1,000 ML 100 ML IVCONT (10:10)
--- NOTE | 2024-03-08 12:40 | MHC.SHP ---
Pre-Procedural Eval Section A - 24 Hr Update-Section A only Date of Service: 03/08/24 The patient is an INPATIENT: No The patient has been examined within 24 hours of the surgical procedure. The History & Physical has been completed within 30 days and I have reviewed it.: Yes Section B - Complete if H&P > 30 days Chief Complaint: Unspecified rotator cuff tear or rupture of right Allergies: Allergies Allergy/AdvReac Type Severity Reaction Status Date / Time raw vegetable [RAW VEGETABLE] Allergy Intermediate ITCHING Verified 02/25/24 11:26 Seasonal Allergies Allergy Intermediate Nasal Verified 02/25/24 11:26 congestion No Known Drug Allergies Allergy Unknown none Verified 02/25/24 11:26 Plan I have reviewed the history and physical and performed a pertinent physical examination on my patient. No changes have occurred unless specified. Time Spent With Patient Time: Total time managing care of this patient today ____ minutes.
--- NOTE | 2024-03-08 14:23 | P.BOP_ITS ---
Brief Operative Note Date of Service: 03/08/24 Pre-op diagnosis: RIght rtc tear, labral tear and ACJ OA Post-op diagnosis: same Procedure: Right RTC repair with biceps tenotomy, circumferential labral debrtidement, DCE and SAD Implants: Cuellar and Nephew 4.75 double loaded healcoil x 2 Cuellar and Nephew 5.0 knotless Helacoil lateral row x 2 Surgeon: Armand Mota MD Anesthesia: GETA and regional Was an Inspector And Hand Packager used for this Procedure?: No Inspector And Hand Packager: Radha Batista Estimated blood loss (mL): 20 IV fluids (mL): 750 Pathology: none sent Condition: stable Disposition: PACU Assessment and Plan (No Qualifiers) Assessment and Plan (1) S/P rotator cuff repair: Status: Acute Plan: Regular repair protocol
[2024-03-08 14:41] VITALS: BP 139/86; PULSE 64; RESP 18; TEMP 36.1; O2SAT 99
[2024-03-08 14:45] VITALS: BP 124/79; PULSE 63; RESP 15; O2SAT 95
[2024-03-08 14:50] VITALS: BP 128/76; PULSE 70; RESP 18; O2SAT 95
[2024-03-08 14:55] VITALS: BP 124/83; PULSE 64; RESP 16; O2SAT 95
[2024-03-08 15:10] VITALS: BP 126/86; PULSE 66; RESP 16; TEMP 36.1; O2SAT 96
--- NOTE | 2024-03-15 07:12 | W.PM.OPN ---
Operative Note Operative Note Date of Service: 03/08/24 Narrative: Date of Service: 03/08/24 Pre-op diagnosis: RIght rtc tear, labral tear and ACJ OA Post-op diagnosis: same Procedure: Right RTC repair with biceps tenotomy, circumferential labral debrtidement, DCE and SAD Implants: Cuellar and Nephew 4.75 double loaded Helacoil x 2 Cuellar and Nephew 5.0 knotless Helacoil lateral row x 2 Surgeon: Armand Mota MD Anesthesia: GETA and regional Was an Certified Vehicle Fire Investigator used for this Procedure?: No Certified Vehicle Fire Investigator: Radha Batista Estimated blood loss (mL): 20 IV fluids (mL): 750 Pathology: none sent Condition: stable Disposition: PACU Procedure in detail: Patient was brought to the operating room and placed the the beach chair position. All bony prominences were well padded and the limb was prepped and draped in standard sterile fashion. A time out was called to identify proper site, proper procedure and proper surgeon. IV antibiotics per weight were administered. I began by making a posterolateral stab incision with a 15 blade. A blunt trochar was placed into the glenohumeral joint and I insufflated the joint with saline and a 30 degree arthroscope was placed. I established an outside- in anterior portal just distal to the biceps tendon. I then began my inspection of the glenohumeral joint. There was a large degenerative SLAP tear at the biceps anchor ( Type 2). There were minimal cartilage changes at the inferior glenoid without humeral head changes. There was a full thickness undersurface RTC tear. The subcapularis was intact. I debrided the loose cartilage of the glenoid and the degenerative labral tearing and performed a biceps tenotomy with the tissue ablator. I then removed the trochar and entered the subacromial space. A direct lateral portal was then established and I performed a bursectomy. The cuff was then examined. There was a full thickness tear of the supra and infraspinatus without retraction. The tear was mobile. I placed two medial row double loaded anchors after using a tap just adjacent to the articular cartilage and then brought the suture limbs ( 8) through the medial cuff. I then debrided the bare area down to bleeding bone and, using a cross bridge configuration, brought 4 limbs to each of two lateral 5.0 anchors. This re-approximated the cuff anatomy anatomically. I performed a 5 mm subacromial decompression with an oval julee. I then entered the AC joint via the anterior portal and perfromed a 5mm distal clavicle resection. Once I was satisfied with the repair final images were captured and I removed all instrumentation. Portals were closed with nylon. Patient was placed in an abduction sling, extubated and brought to the recovery room in stable condition. There were no known complications.
== END 2024-03-08 15:53 | disposition home or self-care (01) ==
PROVIDERS: PCP Internal Medicine; Visit Provider Orthopaedic Surgery
PROC: (CPT 29827; principal; 2024-03-08 12:00)
DX: M75.101 Unspecified rotator cuff tear or rupture of right shoulder, not specified as traumatic (principal); S43.431A Superior glenoid labrum lesion of right shoulder, initial encounter; M19.011 Primary osteoarthritis, right shoulder; R93.6 Abnormal findings on diagnostic imaging of limbs; G89.4 Chronic pain syndrome; M25.511 Pain in right shoulder; G47.33 Obstructive sleep apnea (adult) (pediatric); E78.00 Pure hypercholesterolemia, unspecified; E55.9 Vitamin D deficiency, unspecified; Z98.890 Other specified postprocedural states; Z87.891 Personal history of nicotine dependence
CPT/HCPCS: 29827; 29824; 93005; C1713; J0131; J0171; J0665; J0690; J1100; J2250; J2371; J2405; J2704; J3010

== ENCOUNTER → 2024-03-08 09:27 | Outpatient (BNV) | payer OTHER, SELFPAY | PROVIDERS: PCP Internal Medicine; Visit Provider Orthopaedic Surgery | DX: M75.121 Complete rotator cuff tear or rupture of right shoulder, not specified as traumatic (principal); S43.431A Superior glenoid labrum lesion of right shoulder, initial encounter; M19.011 Primary osteoarthritis, right shoulder | CPT/HCPCS: 29824; 29827 ==

== ENCOUNTER → 2024-03-08 09:29 | Outpatient (BNV) | payer OTHER, SELFPAY | PROVIDERS: PCP Internal Medicine; Visit Provider Internal Medicine Cardiovascular Disease | DX: Z01.810 Encounter for preprocedural cardiovascular examination (principal) | CPT/HCPCS: 93010 ==

== ENCOUNTER 2024-03-16 14:59 | Outpatient (AMB) | payer OTHER, SELFPAY ==
--- NOTE | 2024-03-16 15:04 | A.OFFVIS_ITS ---
Intake Visit Reasons: PO RT RTC 03/08/24 NE Intake Note: Jack is a 58 year old male who presents today for a post op appointment s/p RT RTC 03/08/24 NE. Patient erports he is still experiencing a lot of pain. He was noticing some excess bleed last Sahil, also noticing some bruising. Allergies raw vegetable [RAW VEGETABLE] Allergy (Intermediate, Verified 03/16/24 15:05) ITCHING Seasonal Allergies Allergy (Intermediate, Verified 03/16/24 15:05) Nasal congestion No Known Drug Allergies Allergy (Unknown, Verified 03/16/24 15:05) none HPI HPI PO RT RTC 03/08/24 NE: Details: 58-year-old male, who is?Italian speaking, presents in the office today 8 days status post right rotator cuff repair with biceps tenotomy, circumferential labral debrtidement, DCE and SAD, which was performed on 03/08/[address] Mota.? ? While in the office today, the patient reports he is still experiencing ?a lot? of pain. He also reports excessive bleeding on Wednesday with some ecchymosis. ? PFSH Medical History Pain in right shoulder Rotator cuff injury Osteoarthritis of left hip Chronic pain syndrome Spondylosis of lumbar spine Abnormal MRI BPH (benign prostatic hyperplasia) Erectile dysfunction Carpal tunnel syndrome Cholelithiasis Vitamin D deficiency Obstructive sleep apnea Hypercholesterolemia GERD (gastroesophageal reflux disease) Mixed incontinence Surgical History History of knee surgery History of endoscopy Hx of colonoscopy H/O carpal tunnel repair Hx of inguinal hernia repair Social History Household Members: Spouse Housing: House Are you a primary rn wound care to a significant other at home: No Do you presently have visiting nurse or other home services: No Alcohol intake: current Alcohol intake frequency: former alcohol drinker Alcohol type: beer Patient Tobacco Use Status: Former Tobacco user Tobacco use type: Cigarette e-Cigarette/Vaping Use: Never Used Second Hand Smoke Exposure: No service: No Current occupational status: 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 Sutures are intact. No surrounding erythema or drainage. No signs of infection. Forward flexion and abduction to 45 degrees. External rotation to neutral. NVI.? Assessment & Plan Assessment & Plan (1) Rotator cuff tear, right: Code(s): M75.101 - Unspecified rotator cuff tear or rupture of right shoulder, not specified as traumatic Category: Medical Plan Mr. Costa is a 58-year-old male, who is?Italian speaking, presents in the office today 8 days status post right rotator cuff repair with biceps tenotomy, circumferential labral debrtidement, DCE and SAD, which was performed on 03/08/[address] Mota.? ? While in the office today, the patient reports he is still experiencing ?a lot? of pain. He also reports excessive bleeding on Wednesday with some ecchymosis.? ? Sutures were removed and steri-stripes were applied. The patient presents to the office today without the abduction pillow. He was educated on the importance and reports he will add the abduction pillow to the sling when he returns home. He will remain in the sling until six weeks post-op. The patient will begin to work with PT tomorrow. Follow-up will be in four weeks, or sooner if needed. ? Patient Instructions: Scribed by Chiqui Shi diploma medical assistant, for Radha Batista PA-C on 03/16/2024 at 3:31 pm, EST.? Coding Level of Care Code Global (97838) Diagnoses Rotator cuff tear, right M75.101
== END 2024-03-16 15:29 | disposition home or self-care (01) ==
PROVIDERS: PCP Internal Medicine; Visit Provider Physician Assistant
DX: M75.101 Unspecified rotator cuff tear or rupture of right shoulder, not specified as traumatic (principal)
CPT/HCPCS: 99024

== ENCOUNTER → 2024-03-16 14:59 | Outpatient (BNVA) | payer OTHER, SELFPAY | PROVIDERS: PCP Internal Medicine; Visit Provider Physician Assistant | DX: Z48.02 Encounter for removal of sutures (principal); Z87.39 Personal history of other diseases of the musculoskeletal system and connective tissue | CPT/HCPCS: 99212 ==

== ENCOUNTER 2024-04-13 11:33 | Outpatient (AMB) | payer OTHER, SELFPAY ==
--- NOTE | 2024-04-13 12:07 | A.OFFVIS_ITS ---
Intake Visit Reasons: PO RT RTC 03/08/24 NE Intake Note: Jack is a 58 year old male who presents today for a post op appointment s/p RT RTC 03/08/24 NE Allergies raw vegetable [RAW VEGETABLE] Allergy (Intermediate, Verified 04/14/24 10:47) ITCHING Seasonal Allergies Allergy (Intermediate, Verified 04/14/24 10:47) Nasal congestion No Known Drug Allergies Allergy (Unknown, Verified 04/14/24 10:47) none HPI HPI PO RT RTC 03/08/24 NE: Details: Patient is 6 weeks status post right rotator cuff repair. He has been compliant so far with physical therapy. He states his pain is controlled. He is weaning off narcotics. [facility] Medical History Pain in right shoulder Rotator cuff injury Osteoarthritis of left hip Chronic pain syndrome Spondylosis of lumbar spine Abnormal MRI BPH (benign prostatic hyperplasia) Erectile dysfunction Carpal tunnel syndrome Cholelithiasis Vitamin D deficiency Obstructive sleep apnea Hypercholesterolemia GERD (gastroesophageal reflux disease) Mixed incontinence Surgical History H/O shoulder surgery History of knee surgery History of endoscopy Hx of colonoscopy H/O carpal tunnel repair Hx of inguinal hernia repair Social History Household Members: Spouse Housing: House Are you a primary acute care occupational therapist to a significant other at home: No Do you presently have visiting nurse or other home services: No Alcohol intake: current Alcohol intake frequency: former alcohol drinker Alcohol type: beer Patient Tobacco Use Status: Former Tobacco user Tobacco use type: Cigarette e-Cigarette/Vaping Use: Never Used Second Hand Smoke Exposure: No service: No Current occupational status: 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 Assessment & Plan Assessment & Plan (1) S/P rotator cuff repair: Code(s): Z98.890 - Other specified postprocedural states Category: Surgical Plan: Status post rotator cuff repair. He has physical therapy ordered and is going to start doing it. He can come out of the sling. I will see him back in 6 weeks. Coding Level of Care Code Global (69779) Diagnoses S/P rotator cuff repair Z98.890
== END 2024-04-13 12:19 | disposition home or self-care (01) ==
PROVIDERS: PCP Internal Medicine; Visit Provider Orthopaedic Surgery
DX: Z98.890 Other specified postprocedural states (principal)
CPT/HCPCS: 99024

== ENCOUNTER → 2024-04-13 11:33 | Outpatient (BNVA) | payer OTHER, SELFPAY | PROVIDERS: PCP Internal Medicine; Visit Provider Orthopaedic Surgery | DX: Z47.89 Encounter for other orthopedic aftercare (principal); Z98.890 Other specified postprocedural states; Z87.39 Personal history of other diseases of the musculoskeletal system and connective tissue | CPT/HCPCS: 99212 ==

== ENCOUNTER 2024-04-14 10:29 | Outpatient (AMB) | payer OTHER, SELFPAY ==
--- NOTE | 2024-04-14 10:31 | MHC.OFFVIS ---
Vital Signs 04/14/24 10:32 Height 5 ft 3 in Weight 157 lb BMI 27.8 BP 130/90 H Blood Pressure Location Lt brachial Position Sitting Pulse 83 Intake Visit Reasons: Follow up medications Intake Note: Jack returns to in office follow up of erosive esophagitis. CC: Patient reports occasional burning sensation from stomach when eats spicy food or drinks soda. Patient reports constipation and bloating after recent shoulder surgery on 03/08/24. 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 He had some abd pain and a fever after the procedure that sounds like post polypectomy syndrome, so we will look for this in his next scope. He has since recovered and we will consider Gas X as well to reduce gas trapping as he has a lot of bloating. The results were explained and the patient is agreeable to the follow-up interval as stated. The bowel pattern has returned to normal. Education was provided to tell any 1st degree relatives about their findings to be sure that they are screened by age 45. Educated that they will be put on a recall list when it is time for their repeat scope but should they move out of state or away from the hospital they will need to remember along with their primary to repeat the procedure in a timely fashion to avoid any adverse complications. He is taking the omeprazole 20mg qam, and I will add famotidine 40mg qhs for a while to promote healing. He still has some trouble swallowing and he has to use frequent water sips, even if he is eating soup! HE uses the senna only if he needs it. HE is satisfied with this. HE will be getting injections for his hip and back soon form a pain provider in [place]. ROV keep 10/07 appt. (2) Odynophagia: Comment: Seems to have resolved when we treated his acid reflux. Code(s): R13.10 - Dysphagia, unspecified (3) Tubular adenoma of colon: Comment: 2022= negative exam repeat in 5 years (may have had mild polypectomy syndrome); 2016 scope repeat 5 years 2020 scope insufficient prep repeat in 2 years Code(s): D12.6 - Benign neoplasm of colon, unspecified (4) GERD (gastroesophageal reflux disease): Code(s): K21.9 - Gastro-esophageal reflux disease without esophagitis Medications: New famotidine (Pepcid) 40 mg PO BEDTIME 30 tabs 6RF K22.10 - Ulcer of esophagus without bleeding Refilled omeprazole Take 1 tablet daily 30 minutes before breakfast 20 mg PO .daily 60 days 60 tabs 6RF K22.10 - Ulcer of esophagus without bleeding TODAY'S VISIT Maldivian #Baylee LIve PATIENT HAS BEEN LOST FOLLOW-UP SINCE 04/2023 He says I forgot to come see you. He has been doing very well with his GERD. He had some CIC after having a right rotator cuff repair. HE is having pain today, but he is out of his sling and he is in process of PT. Despite his hx of erosive esophagitis and PUD he has not had any upper abd pain. I suggest he restart the senna I had prescribed in the past and we will titrate. ROV 5 weeks. [facility] Medical History (Updated 05/16/24 @ 12:11 by KIARA Colindres) Pre-op examination Pain in right shoulder Rotator cuff injury Osteoarthritis of left hip Chronic pain syndrome Spondylosis of lumbar spine Abnormal MRI BPH (benign prostatic hyperplasia) Erectile dysfunction Carpal tunnel syndrome Cholelithiasis Vitamin D deficiency Obstructive sleep apnea Hypercholesterolemia GERD (gastroesophageal reflux disease) Mixed incontinence Surgical History H/O shoulder surgery History of knee surgery History of endoscopy Hx of colonoscopy H/O carpal tunnel repair Hx of inguinal hernia repair Social History Household Members: Spouse Housing: House Are you a primary health care marketing manager to a significant other at home: No Do you presently have visiting nurse or other home services: No Alcohol intake: current Alcohol intake frequency: former alcohol drinker Alcohol type: beer Patient Tobacco Use Status: Former Tobacco user Tobacco use type: Cigarette e-Cigarette/Vaping Use: Never Used Second Hand Smoke Exposure: No service: No Current occupational status: employed Current occupation: [employer] Current occupational exposures/hazards: Yes (eisenberg, stressed) Cognitive needs: No Hearing needs: No Vision needs: No Review of Systems Const Denies fatigue, Denies fever(s), Denies night sweats, Denies poor appetite and Denies weight loss Eyes Details: glasses Reports requires corrective lenses ENT Reports Normal hearing present, Denies dental pain, Denies dysphagia, Denies hearing loss, Denies mouth pain, Denies odynophagia, Denies throat swelling, Denies tongue swelling and Reports other (Dentition adequate) Card Reports no additional complaints Resp Reports no additional complaints GI Details: Denies abdominal pain, Denies melena, Denies bloating, Denies hematochezia, Reports constipation, Denies GI cramping, Denies dysphagia, Denies excessive flatus, Denies early satiety, Reports heartburn, Denies diarrhea, Denies nausea, Denies odynophagia, Denies vomiting and Denies hematemesis Skin/Breast Denies pruritus, Denies lesions, Denies rash and Denies jaundice Neuro Reports Normal hearing present and Denies Abnormal speech present Endo Denies fatigue Aller/Immun Denies throat swelling and Denies tongue swelling Physical Exam Vital Signs: Last Vital Signs Pulse 83 04/14/24 10:32 BP 130/90 H 04/14/24 10:32 BMI result Body Mass Index 27.8 Const General: cooperative, no acute distress, well developed and well groomed Nutritional Appearance: average body habitus and well nourished Orientation/consciousness: oriented to person, oriented to place and oriented to time Limitations: No language barrier HEENT Head: Yes normocephalic and Yes atraumatic Eyes General: appearance normal, both eyes and all related structures Pupils: Equal, round and reactive pupils present Neck Neck: Yes normal visual inspection and Yes no lymphadenopathy Thyroid: Thyroid normal Resp Effort & Inspection: normal respiratory effort and able to speak in complete sentences Auscultation: clear to auscultation bilaterally Cardio Rate: regular rate Rhythm: regular rhythm Heart sounds: Normal, physiologic split S2 sound present Peripheral pulses: radial pulses present and posterior tibial pulses present GI Inspection: No distended and No Abdominal panniculus present Palpation (GI): Soft to palpation, nontender, no guarding, not rigid and No hepatosplenomegaly present Percussion: Yes normal to percussion Auscultation: normal bowel sounds Rectal Exam - Male: Yes deferred Skin General skin exam: no rashes or lesions noted, turgor normal, skin not dry, no jaundice, No spider nevi and no striae Rashes: no rashes Nails: normal Neuro General: oriented to person, oriented to place and oriented to time Cranial nerves: Yes Equal, round and reactive pupils present and Yes Normal hearing present Speech: No Abnormal speech present Extrem General: Yes normal to inspection, No clubbing, No cyanosis and No edema Shoulder/upper arm images: 1. well healing surgical scars 2. 3. Psych Appearance: grossly normal and well kempt Mental Status: mental status grossly normal Speech and movement: Normal speech and movement present Affect: normal affect Attitude: cooperative Thought process: Normal thought process present and not confabulating Thought content: Normal thought content present Insight: Limited insight present (Psych) Judgement: Limited judgement present (Psych) Assessment & Plan Assessment & Plan (1) GERD (gastroesophageal reflux disease): Code(s): K21.9 - Gastro-esophageal reflux disease without esophagitis Category: Medical (2) Erosive esophagitis: Code(s): K22.10 - Ulcer of esophagus without bleeding Category: Medical (3) Illiterate: Comment: Does not read in Tajik or Maldivian Code(s): Z55.0 - Illiteracy and low-level literacy Category: Medical (4) Cholelithiasis: Comment: Discovered incidentally on 05/2021 ultrasound Code(s): K80.20 - Calculus of gallbladder without cholecystitis without obstruction Category: Medical (5) Constipation: Code(s): K59.00 - Constipation, unspecified Category: Medical Plan Maldivian #Baylee LIve PATIENT HAS BEEN LOST FOLLOW-UP SINCE 04/2023 He says I forgot to come see you. He has been doing very well with his GERD. He had some CIC after having a right rotator cuff repair. HE is having pain today, but he is out of his sling and he is in process of PT. Despite his hx of erosive esophagitis and PUD he has not had any upper abd pain. I suggest he restart the senna I had prescribed in the past and we will titrate. ROV 5 weeks. Medications: Refilled sennosides (senna) 17.2 mg (2 x 8.6 mg) PO BEDTIME 60 caps 6RF constipation 30 days omeprazole Take 1 tablet daily 30 minutes before breakfast 20 mg PO .daily 90 tabs 3RF 90 days K22.10 - Ulcer of esophagus without bleeding famotidine 40 mg PO BEDTIME 30 tabs 6RF K22.10 - Ulcer of esophagus without bleeding Coding Level of Care Code Est Pt Level 3 (71195) Diagnoses GERD (gastroesophageal reflux disease) K21.9 Erosive esophagitis K22.10 Illiterate Z55.0 Cholelithiasis K80.20 Constipation K59.00
[2024-04-14 10:32] VITALS: BP 130/90; PULSE 83; BMI 27.8
== END 2024-04-14 12:57 | disposition home or self-care (01) ==
PROVIDERS: PCP Internal Medicine; Visit Provider Nurse Practitioner
DX: K21.9 Gastro-esophageal reflux disease without esophagitis (principal); K22.10 Ulcer of esophagus without bleeding; Z55.0 Illiteracy and low-level literacy; K80.20 Calculus of gallbladder without cholecystitis without obstruction; K59.00 Constipation, unspecified
CPT/HCPCS: 99213

== ENCOUNTER → 2024-04-14 10:29 | Outpatient (BNVA) | payer OTHER, SELFPAY | PROVIDERS: PCP Internal Medicine; Visit Provider Nurse Practitioner | DX: K22.10 Ulcer of esophagus without bleeding (principal); K21.9 Gastro-esophageal reflux disease without esophagitis; K80.20 Calculus of gallbladder without cholecystitis without obstruction; K59.00 Constipation, unspecified; R13.10 Dysphagia, unspecified; D12.6 Benign neoplasm of colon, unspecified; Z55.0 Illiteracy and low-level literacy | CPT/HCPCS: 99212 ==

== ENCOUNTER 2024-05-16 11:39 | Outpatient (AMB) | payer OTHER, SELFPAY ==
--- NOTE | 2024-05-16 11:48 | MHC.OFFVIS ---
Vital Signs 05/16/24 11:56 Height 5 ft 3 in Weight 158 lb 11.725 oz BMI 28.1 BP 139/86 Blood Pressure Location Lt brachial Position Sitting Pulse 84 Intake Visit Reasons: 5 weeks follow up Intake Note: Jack return in 5 weeks follow up GERD and constipation. CC: Patient reports that he has been having BMs with medication. Denies other GI symptoms. 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 Accompanied by: Self / Same As Patient Allergies raw vegetable [RAW VEGETABLE] Allergy (Intermediate, Verified 05/16/24 11:57) ITCHING Seasonal Allergies Allergy (Intermediate, Verified 05/16/24 11:57) Nasal congestion No Known Drug Allergies Allergy (Unknown, Verified 05/16/24 11:57) none HPI HPI 5 weeks follow up: Details: Assessment & Plan (1) GERD (gastroesophageal reflux disease): Code(s): K21.9 - Gastro-esophageal reflux disease without esophagitis Category: Medical (2) Erosive esophagitis: Code(s): K22.10 - Ulcer of esophagus without bleeding Category: Medical (3) Illiterate: Comment: Does not read in Hungarian or Hungarian Code(s): Z55.0 - Illiteracy and low-level literacy Category: Social Hx (4) Cholelithiasis: Comment: Discovered incidentally on 05/2021 ultrasound Code(s): K80.20 - Calculus of gallbladder without cholecystitis without obstruction Category: Medical Medications: Refilled sennosides (senna) 17.2 mg (2 x 8.6 mg) PO BEDTIME 30 days 60 caps 6RF constipation omeprazole Take 1 tablet daily 30 minutes before breakfast 20 mg PO .daily 90 days 90 tabs 3RF K22.10 - Ulcer of esophagus without bleeding famotidine 40 mg PO BEDTIME 30 tabs 6RF K22.10 - Ulcer of esophagus without bleeding TODAYS VISIT He continues to do well. He continues on his omeprazole, senna and famotidine with good control of her GI conditions. The only problem is shoulder pain and hand pain OA. ROV 6 mos. [facility] Medical History (Updated 05/16/24 @ 12:11 by KIARA Colindres) Pre-op examination Pain in right shoulder Rotator cuff injury Osteoarthritis of left hip Chronic pain syndrome Spondylosis of lumbar spine Abnormal MRI BPH (benign prostatic hyperplasia) Erectile dysfunction Carpal tunnel syndrome Cholelithiasis Vitamin D deficiency Obstructive sleep apnea Hypercholesterolemia GERD (gastroesophageal reflux disease) Mixed incontinence Surgical History H/O shoulder surgery History of knee surgery History of endoscopy Hx of colonoscopy H/O carpal tunnel repair Hx of inguinal hernia repair Social History Household Members: Spouse Housing: House Are you a primary home care administrator to a significant other at home: No Do you presently have visiting nurse or other home services: No Alcohol intake: current Alcohol intake frequency: former alcohol drinker Alcohol type: beer Patient Tobacco Use Status: Former Tobacco user Tobacco use type: Cigarette e-Cigarette/Vaping Use: Never Used Second Hand Smoke Exposure: No service: No Current occupational status: employed Current occupation: [employer] Current occupational exposures/hazards: Yes (eisenberg, stressed) Cognitive needs: No Hearing needs: No Vision needs: No Review of Systems Const Denies fatigue, Denies fever(s), Denies night sweats, Denies poor appetite and Denies weight loss Eyes Details: glasses Reports requires corrective lenses ENT Reports Normal hearing present, Denies dental pain, Denies dysphagia, Denies hearing loss, Denies mouth pain, Denies odynophagia, Denies throat swelling, Denies tongue swelling and Reports other (Dentition adequate) Card Reports no additional complaints Resp Reports no additional complaints GI Details: Denies abdominal pain, Denies melena, Denies bloating, Denies hematochezia, Reports constipation, Denies GI cramping, Denies dysphagia, Denies excessive flatus, Denies early satiety, Reports heartburn, Denies diarrhea, Denies nausea, Denies odynophagia, Denies vomiting and Denies hematemesis Musc Reports myalgias, Reports arthralgias, Reports joint swelling and Reports stiffness Skin/Breast Denies pruritus, Denies lesions, Denies rash and Denies jaundice Neuro Reports Normal hearing present and Denies Abnormal speech present Endo Denies fatigue Aller/Immun Denies throat swelling and Denies tongue swelling Physical Exam Vital Signs: Last Vital Signs Pulse 84 05/16/24 11:56 BP 139/86 05/16/24 11:56 BMI result Body Mass Index 28.1 Const General: cooperative, no acute distress, well developed and well groomed Nutritional Appearance: average body habitus and well nourished Orientation/consciousness: oriented to person, oriented to place and oriented to time Limitations: No language barrier HEENT Head: Yes normocephalic and Yes atraumatic Eyes General: appearance normal, both eyes and all related structures Pupils: Equal, round and reactive pupils present Neck Neck: Yes normal visual inspection and Yes no lymphadenopathy Thyroid: Thyroid normal Resp Effort & Inspection: normal respiratory effort and able to speak in complete sentences Auscultation: clear to auscultation bilaterally Cardio Rate: regular rate Rhythm: regular rhythm Heart sounds: Normal, physiologic split S2 sound present Peripheral pulses: radial pulses present and posterior tibial pulses present GI Inspection: No distended and No Abdominal panniculus present Palpation (GI): Soft to palpation, nontender, no guarding, not rigid and No hepatosplenomegaly present Percussion: Yes normal to percussion Auscultation: normal bowel sounds Rectal Exam - Male: Yes deferred Skin General skin exam: no rashes or lesions noted, turgor normal, skin not dry, no jaundice, No spider nevi and no striae Rashes: no rashes Nails: normal Neuro General: oriented to person, oriented to place and oriented to time Cranial nerves: Yes Equal, round and reactive pupils present and Yes Normal hearing present Speech: No Abnormal speech present Extrem General: Yes normal to inspection, No clubbing, No cyanosis and No edema Psych Appearance: grossly normal and well kempt Mental Status: mental status grossly normal Speech and movement: Normal speech and movement present Affect: normal affect Attitude: cooperative Thought process: Normal thought process present and not confabulating Thought content: Normal thought content present Insight: Limited insight present (Psych) Judgement: Limited judgement present (Psych) Assessment & Plan Assessment & Plan (1) GERD (gastroesophageal reflux disease): Code(s): K21.9 - Gastro-esophageal reflux disease without esophagitis Category: Medical (2) Illiterate: Comment: Does not read in Hungarian or Hungarian Code(s): Z55.0 - Illiteracy and low-level literacy Category: Social Hx (3) Erosive esophagitis: Code(s): K22.10 - Ulcer of esophagus without bleeding Category: Medical (4) Constipation: Code(s): K59.00 - Constipation, unspecified Category: Medical Plan He continues to do well. He continues on his omeprazole, senna and famotidine with good control of her GI conditions. The only problem is shoulder pain and hand pain OA. ROV 6 mos. Medications: Refilled famotidine 40 mg PO BEDTIME 30 tabs 6RF K22.10 - Ulcer of esophagus without bleeding omeprazole Take 1 tablet daily 30 minutes before breakfast 20 mg PO .daily 90 tabs 3RF 90 days K22.10 - Ulcer of esophagus without bleeding sennosides (senna) 17.2 mg (2 x 8.6 mg) PO BEDTIME 60 caps 6RF constipation 30 days Coding Level of Care Code Est Pt Level 3 (06328) Diagnoses GERD (gastroesophageal reflux disease) K21.9 Illiterate Z55.0 Erosive esophagitis K22.10 Constipation K59.00
[2024-05-16 11:56] VITALS: BP 139/86; PULSE 84; BMI 28.1
== END 2024-05-16 13:16 | disposition home or self-care (01) ==
PROVIDERS: PCP Internal Medicine; Visit Provider Nurse Practitioner
DX: K21.9 Gastro-esophageal reflux disease without esophagitis (principal); Z55.0 Illiteracy and low-level literacy; K22.10 Ulcer of esophagus without bleeding; K59.00 Constipation, unspecified
CPT/HCPCS: 99213

== ENCOUNTER → 2024-05-16 11:39 | Outpatient (BNVA) | payer OTHER, SELFPAY | PROVIDERS: PCP Internal Medicine; Visit Provider Nurse Practitioner | DX: K21.9 Gastro-esophageal reflux disease without esophagitis (principal); K59.00 Constipation, unspecified; K22.10 Ulcer of esophagus without bleeding; Z55.0 Illiteracy and low-level literacy | CPT/HCPCS: 99212 ==

== ENCOUNTER 2024-05-25 11:11 | Outpatient (AMB) | payer OTHER, SELFPAY ==
[2024-05-25 11:18] VITALS: BMI 28.0
--- NOTE | 2024-05-25 11:18 | A.OFFVIS_ITS ---
Vital Signs 05/25/24 11:18 Height 5 ft 3 in Weight 158 lb BMI 28.0 Intake Visit Reasons: PO- RT RTC 03/08/24 NE Intake Note: Jack is a 58 year old right hand dominant male who presents today for a post operative appointment s/p Right Rotator Cuff Repair 03/08/2024. At his last visit he was instructed to start PT. Allergies raw vegetable [RAW VEGETABLE] Allergy (Intermediate, Verified 05/16/24 11:57) ITCHING Seasonal Allergies Allergy (Intermediate, Verified 05/16/24 11:57) Nasal congestion No Known Drug Allergies Allergy (Unknown, Verified 05/16/24 11:57) none HPI HPI PO- RT RTC 03/08/24 NE: Details: Jack is a 58 year old right hand dominant male who presents today for a post operative appointment s/p Right Rotator Cuff Repair 03/08/2024. At his last visit he was instructed to start PT. he does have pain mostly at night and the anterior right shoulder. He underwent rotator cuff repair with biceps tenotomy. He also had subacromial decompression and distal clavicle excision. [facility] Medical History Pre-op examination Pain in right shoulder Rotator cuff injury Osteoarthritis of left hip Chronic pain syndrome Spondylosis of lumbar spine Abnormal MRI BPH (benign prostatic hyperplasia) Erectile dysfunction Carpal tunnel syndrome Cholelithiasis Vitamin D deficiency Obstructive sleep apnea Hypercholesterolemia GERD (gastroesophageal reflux disease) Mixed incontinence Surgical History H/O shoulder surgery History of knee surgery History of endoscopy Hx of colonoscopy H/O carpal tunnel repair Hx of inguinal hernia repair Social History Household Members: Spouse Housing: House Are you a primary plant health care technician to a significant other at home: No Do you presently have visiting nurse or other home services: No Alcohol intake: current Alcohol intake frequency: former alcohol drinker Alcohol type: beer Patient Tobacco Use Status: Former Tobacco user Tobacco use type: Cigarette e-Cigarette/Vaping Use: Never Used Second Hand Smoke Exposure: No service: No Current occupational status: 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, stressed) Cognitive needs: No Hearing needs: No Vision needs: No Physical Exam Vital Signs: BMI result Body Mass Index 28.0 Extrem Other: On exam he has portals that are well healed. External rotation of 30 degrees and abduction to 90 degrees. Tenderness to palpation that is mild over the anterior shoulder. Assessment & Plan Assessment & Plan (1) S/P rotator cuff repair: Code(s): Z98.890 - Other specified postprocedural states Category: Surgical Plan: Status post rotator cuff repair with biceps tenotomy and subacromial decompression with distal clavicle excision. Overall he is doing well. I reassured him and recommend he continue physical therapy continue to work on range of motion without lifting. I would recommend he abstain from lifting ac tivities for at least an additional 6 weeks. This will necessitate him being out of work for 2 I think is reasonable. (2) Arthritis of right acromioclavicular joint: Code(s): M19.011 - Primary osteoarthritis, right shoulder Category: Medical Plan: Coding Level of Care Code Global (01318) Diagnoses S/P rotator cuff repair Z98.890 Arthritis of right acromioclavicular joint M19.011
== END 2024-05-25 11:37 | disposition home or self-care (01) ==
PROVIDERS: PCP Internal Medicine; Visit Provider Orthopaedic Surgery
DX: Z98.890 Other specified postprocedural states (principal); M19.011 Primary osteoarthritis, right shoulder
CPT/HCPCS: 99024

== ENCOUNTER → 2024-05-25 11:11 | Outpatient (BNVA) | payer OTHER, SELFPAY | PROVIDERS: PCP Internal Medicine; Visit Provider Orthopaedic Surgery | DX: M19.011 Primary osteoarthritis, right shoulder (principal); Z47.89 Encounter for other orthopedic aftercare; Z98.890 Other specified postprocedural states | CPT/HCPCS: 99212 ==

== ENCOUNTER 2024-06-22 08:26 | Outpatient (AMB) | payer OTHER, SELFPAY ==
[2024-06-22 08:36] VITALS: BP 114/68; PULSE 71; O2SAT 97; BMI 27.6
--- NOTE | 2024-06-22 08:36 | A.OFFPC_ITS ---
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 Last seen in 02/17/2024 patient had an increase in PSA. Patient also has a right shoulder pain seeing orthopedics. Patient's last colonoscopy is up-to-date. 2022May 25 note Orthopedics status post rotator cuff repair with biceps tenotomy and subacromial decompression with distal clavicle excision March 15 2024. Patient also sees gastro May 16 GERD and constipation omeprazole, senna and famotidine. [facility] Medical History Pre-op examination Pain in right shoulder Rotator cuff injury Osteoarthritis of left hip Chronic pain syndrome Spondylosis of lumbar spine Abnormal MRI BPH (benign prostatic hyperplasia) Erectile dysfunction Carpal tunnel syndrome Cholelithiasis Vitamin D deficiency Obstructive sleep apnea Hypercholesterolemia GERD (gastroesophageal reflux disease) Mixed incontinence Surgical History H/O shoulder surgery History of knee surgery History of endoscopy Hx of colonoscopy H/O carpal tunnel repair Hx of inguinal hernia repair Social History Household Members: Spouse Housing: House Are you a primary healthcare social worker to a significant other at home: No Do you presently have visiting nurse or other home services: No Alcohol intake: current Alcohol intake frequency: former alcohol drinker Alcohol type: beer Patient Tobacco Use Status: Former Tobacco user Tobacco use type: Cigarette e-Cigarette/Vaping Use: Never Used Second Hand Smoke Exposure: No service: No Current occupational status: 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 1. Little interest or pleasure in doing things: not at all 2. Feeling down, depressed, or hopeless: not at all 3. Trouble falling or staying asleep, or sleeping too much: not at all 4. Feeling tired or having little energy: not at all 5. Poor appetite or overeating: not at all 6. Feeling bad about yourself - or that you are a failure or have let yourself or your family down: not at all 7. Trouble concentrating on things, such as reading the newspaper or watching television: not at all 8. Moving or speaking so slowly that other people could have noticed. Or the opposite - being so fidgety or restless that you have been moving around a lot more than usual: not at all 9. Thoughts that you would be better off or of hurting yourself in some way: not at all Total score: 0 Depression Screening Interpretation: Negative Depression Screening Done: Yes 61842 - PHQ-9 Billing: Yes Source: Developed by Drs. Anderson Johnson, Dee Dee Stewart, Paresh Durant and colleagues, with an educational bia from [employer]. Thrive Questionnaire Date Thrive assessed: 02/01/24 AUDIT C Alcohol Use Questionnaire (AUDIT-C) 1. How often do you have a drink containing alcohol?: 4 or more times a week 2. How many drinks containing alcohol do you have on a typical day when you are drinking?: 3 or 4 3. How often do you have six or more drinks on one occasion?: Never Total Score: 5 KAROLINE-7 AMB Questionnaire KAROLINE-7 Date KAROLINE - 7 assessed: 02/01/24 Source: Developed by Drs. Anderson Johnson, Paresh Nieto and colleagues, with an educational bia from [employer]. Physical exam (Primary Care) Vital Signs: Last Vital Signs Pulse 71 06/22/24 08:36 BP 114/68 06/22/24 08:36 Pulse Ox 97 06/22/24 08:36 Oxygen Delivery Method Room Air 06/22/24 08:36 BMI result Body Mass Index 27.6 Tobacco/Smoking Status: Tobacco use Status Tobacco use date assessed 02/01/24 06/22/24 08:36 Patient Tobacco Use Status Former Tobacco user 06/22/24 08:36 Tobacco use type Cigarette 06/22/24 08:36 e-Cigarette/Vaping Use Never Used 06/22/24 08:36 PHQ-9: PHQ-9 Score PHQ-9: Total score 0 06/22/24 08:50 Depression Screening Interpretation: Negative Thrive Assessment: Date of Thrive Assessment Date Thrive assessed 02/01/24 06/22/24 08:36 Const General: alert; No acute distress Eyes Conjunctivae: conjunctivae normal Resp Auscultation: clear to auscultation bilaterally Cardio Rate: regular rate Rhythm: regular rhythm GI Inspection: Yes normal to inspection Extrem General: Yes normal to inspection and No edema Office Procedures Flu Questionnaire Does the patient have a severe egg allergy?: No Does the patient have severe life threatening allergies?: No Does the patient have a fever or illness today?: No Has the patient ever had Guillain-[place] Syndrome?: No Has the patient ever had any past reaction to a flu shot?: No Immunizations Fluarix Triv [id number] (PF) 45 mcg (15 mcg x 3)/0.5 mL IM syringe Performing Provider: Agustina Oconnell MD [facility] Administered by: Isabelle Neal RN on 06/22/24 08:50 Dose Route Admin Location Dispensed Lot Number Expiration Date [facility] Director Of Medicare 0.5 mL IM Left Deltoid 0.5 mL [id number] 02/26/25 25538-468-07 LDK Solar VIS Given Date VIS Provided VIS Publication Date 06/22/24 Single Vaccine 21 Eligibility Eligibility Date Funding Source Not [facility] Eligible 06/22/24 Private Coding Level of Care Code Est Pt Level 4 (07799) Diagnoses PSA elevation R97.20 Overweight (BMI 25.0-29.9) E66.3 Hypercholesterolemia E78.00 Gastroesophageal reflux disease without esophagitis K21.9 Esophagitis presence: without esophagitis S/P rotator cuff repair Z98.890 Herpes simplex infection of penis A60.01 Herpes simplex infection site: penis Assessment & Plan Assessment & Plan (1) PSA elevation: Code(s): R97.20 - Elevated prostate specific antigen [PSA] Category: Medical Plan: Discussed with the patient regarding elevated PSA and will repeat (2) Overweight (BMI 25.0-29.9): Code(s): E66.3 - Overweight Category: Medical Plan: Diet and exercise (3) Hypercholesterolemia: Code(s): E78.00 - Pure hypercholesterolemia, unspecified Category: Medical Plan: Avoid fried foods, chicken skin, eggs, butter margarine, pastries and meat. Be it pork or beef they have a lot of cholesterol LDL goal of less than 130 and triglyceride of less than 150 patient has been placed on simvastatin 20 mg at be [facility] (4) GERD (gastroesophageal reflux disease): Code(s): K21.9 - Gastro-esophageal reflux disease without esophagitis Category: Medical Qualifiers: Esophagitis presence: without esophagitis Qualified Code(s): K21.9 - Gastro-esophageal reflux disease without esophagitis Plan: Avoid the foods that causes that usually spicy foods, tomato products, juices, coffee, soda and foods that your sensitive to. After eating do not lie down, allow 3-4 hours before in lie down. And keep the head of bed above 30 degrees to avoid the acid from going up. (5) S/P rotator cuff repair: Comment: Right February 2024 Code(s): Z98.890 - Other specified postprocedural states Category: Surgical Plan: Status post repair by ortho and has been sent for physical therapy (6) Genital herpes: Code(s): A60.00 - Herpesviral infection of urogenital system, unspecified Category: Medical Qualifiers: Herpes simplex infection site: penis Qualified Code(s): A60.01 - Herpesviral infection of penis Plan: Antiviral sent in for treatment recurrence. Orders: Orders Influenza [id number] Immunization Today Z23 - Encounter for immunization PSA, Ultra Sensitive Today R97.20 - Elevated prostate specific antigen [PSA] Medications: New valacyclovir 500 mg PO BID 6 tabs 2RF A60.00 - Herpesviral infection of urogenital system, unspecified meloxicam 15 mg PO DAILY 30 tabs 0RF Z98.890 - Other specified postprocedural states Refilled omeprazole Take 1 tablet daily 30 minutes before breakfast 20 mg PO .daily 90 tabs 3RF 90 days K22.10 - Ulcer of esophagus without bleeding famotidine 40 mg PO BEDTIME 30 tabs 6RF K22.10 - Ulcer of esophagus without bleeding
== END 2024-06-22 09:00 | disposition home or self-care (01) ==
PROVIDERS: PCP Internal Medicine; Visit Provider Internal Medicine
DX: R97.20 Elevated prostate specific antigen [PSA] (principal); E66.3 Overweight; E78.00 Pure hypercholesterolemia, unspecified; K21.9 Gastro-esophageal reflux disease without esophagitis; Z98.890 Other specified postprocedural states; A60.01 Herpesviral infection of penis; Z23 Encounter for immunization

== ENCOUNTER → 2024-06-22 08:26 | Outpatient (BNVA) | payer OTHER, SELFPAY | PROVIDERS: PCP Internal Medicine; Visit Provider Internal Medicine | DX: Z23 Encounter for immunization (principal); R97.20 Elevated prostate specific antigen [PSA]; E66.3 Overweight; Z68.27 Body mass index [BMI] 27.0-27.9, adult; E78.00 Pure hypercholesterolemia, unspecified; K21.9 Gastro-esophageal reflux disease without esophagitis; A60.01 Herpesviral infection of penis; Z98.890 Other specified postprocedural states; Z71.3 Dietary counseling and surveillance | CPT/HCPCS: 90471; 90656; 96127; 99212 ==

== ENCOUNTER 2024-07-10 12:30 | Outpatient (AMB) | payer OTHER, SELFPAY ==
--- NOTE | 2024-07-10 12:33 | A.OFFVIS_ITS ---
Intake Visit Reasons: OV - RT RTC 03/08/24 Intake Note: Jack is a 58 year old right hand dominant male who presents today for a follow up of his shoulder s/p Right Rotator Cuff Repair with biceps tenotomy and subacromial decompression with distal clavicle excision03/08/24. At the last visit on 05/25/24 it was recommended that he remain out of work un til 06/13/24 and abstain from lifting for an additional six weeks Allergies raw vegetable [RAW VEGETABLE] Allergy (Intermediate, Verified 06/22/24 08:39) ITCHING Seasonal Allergies Allergy (Intermediate, Verified 06/22/24 08:39) Nasal congestion No Known Drug Allergies Allergy (Unknown, Verified 06/22/24 08:39) none HPI HPI OV - RT RTC 03/08/24: Details: Jack is a 58 year old right hand dominant male who presents today for a follow up of his shoulder s/p Right Rotator Cuff Repair with biceps tenotomy and subacromial decompression with distal clavicle excision03/08/24. At the last visit on 05/25/24 it was recommended that he remain out of work until 06/13/24 and abstain from lifting for an additional six weeks. He continues to have pain and difficulty sleeping at night. [facility] Medical History Pre-op examination Pain in right shoulder Rotator cuff injury Osteoarthritis of left hip Chronic pain syndrome Spondylosis of lumbar spine Abnormal MRI BPH (benign prostatic hyperplasia) Erectile dysfunction Carpal tunnel syndrome Cholelithiasis Vitamin D deficiency Obstructive sleep apnea Hypercholesterolemia GERD (gastroesophageal reflux disease) Mixed incontinence Surgical History H/O shoulder surgery History of knee surgery History of endoscopy Hx of colonoscopy H/O carpal tunnel repair Hx of inguinal hernia repair Social History Household Members: Spouse Housing: House Are you a primary inspector health care facilities to a significant other at home: No Do you presently have visiting nurse or other home services: No Alcohol intake: current Alcohol intake frequency: former alcohol drinker Alcohol type: beer Patient Tobacco Use Status: Former Tobacco user Tobacco use type: Cigarette e-Cigarette/Vaping Use: Never Used Second Hand Smoke Exposure: No service: No Current occupational status: employed Current occupation: [employer] Current occupational exposures/hazards: Yes (eisenberg, stressed) Cognitive needs: No Hearing needs: No Vision needs: No Physical Exam Extrem Other: There is pain with abduction overhead but 5/5 empty can with 35 degrees of external rotation and otherwise full range of motion. Portals and incisions are well healed. 5/5 with resisted supination Left upper extremity: abnormal to inspection Assessment & Plan Assessment & Plan (1) S/P rotator cuff repair: Comment: Right February 2024 Code(s): Z98.890 - Other specified postprocedural states Category: Surgical Plan: Stable rotator cuff repair with continued pain. I recommend he abstain from heavy lifting and from working for an additional 2 months. This is a large rotator cuff repair and he should return to work when he is pain-free. I will see him back in 2 months Coding Level of Care Code Est Pt Level 3 (20141) Diagnoses S/P rotator cuff repair Z98.890
== END 2024-07-10 12:49 | disposition home or self-care (01) ==
PROVIDERS: PCP Internal Medicine; Visit Provider Orthopaedic Surgery
DX: M25.511 Pain in right shoulder (principal)
CPT/HCPCS: 99213

== ENCOUNTER → 2024-07-10 12:30 | Outpatient (BNVA) | payer OTHER, SELFPAY | PROVIDERS: PCP Internal Medicine; Visit Provider Orthopaedic Surgery | DX: M25.511 Pain in right shoulder (principal); Z98.890 Other specified postprocedural states | CPT/HCPCS: 99212 ==

== ENCOUNTER 2024-08-22 08:04 | Outpatient (RCR) | payer OTHER, SELFPAY ==
--- NOTE | 2024-09-29 14:03 | MHC.PT.DC ---
[facility] [place] Office [place] [facility] [place] [facility] [address] Lucien Briceno [address] [phone] F: [phone] F: [phone] F: [phone] F: [phone] Physical Therapy Discharge Report Diagnosis: R RTC repair (03/08/2024) Date of Surgery: 03/08/24 Date of Evaluation: 03/17/24 Date of Discharge: 09/29/24 Treatments to Date: 33 Cancellations to Date: 0 No Shows to Date: 0 Discharge Status: Improved Function Independent with HEP Patient Elected to Stop Discharge Summary: At last attended visit, Jack demonstrated improved postural awareness and decreased pect tissue tension with improved scapular activation. Demonstrated independence with current HEP. He chose to not continue formal PT at this time and was issued extensive home program and guidelines on protocol progression. Continued to advise against heavy lifting. He will contact our office if he requires additional skilled therapy in the future. Electronically signed by: Caty David PT DPT Please sign and return to therapist. Thank you for your referral.
== END 2024-09-29 14:03 | disposition home or self-care (01) ==
LOC: HO.PT 08:04
PROVIDERS: PCP Internal Medicine; Visit Provider Physician Assistant
DX: M75.101 Unspecified rotator cuff tear or rupture of right shoulder, not specified as traumatic (principal)
CPT/HCPCS: 97110; 97112; 97140; 97161; 97530; 97535

== ENCOUNTER 2024-09-01 08:55 | Outpatient (AMB) | payer OTHER, SELFPAY ==
[2024-09-01 09:10] VITALS: BMI 26.6
--- NOTE | 2024-09-01 09:10 | HO.SPINEOV ---
Vital Signs 09/01/24 09:10 Height 5 ft 3 in Weight 150 lb BMI 26.6 Intake Visit Reasons: lumbar radiculopathy Intake Note: Mr. Costa is here today c/o low back pain that radiates to the neck and head causing headaches. Licensed Staff Mft Required: Yes Licensed Staff Mft Name: Tablet Allergies raw vegetable [RAW VEGETABLE] Allergy (Intermediate, Verified 09/01/24 09:11) ITCHING Seasonal Allergies Allergy (Intermediate, Verified 09/01/24 09:11) Nasal congestion No Known Drug Allergies Allergy (Unknown, Verified 06/22/24 08:39) none Physical Exam Vital Signs: BMI result Body Mass Index 26.6 Assessment & Plan Assessment & Plan (1) Back pain: Code(s): M54.9 - Dorsalgia, unspecified Category: Medical Plan Dear Dr Mosley, Thank you for referring Mr Costa to our office today. He is a very nice 59-year-old gentleman, Yi-speaking, presents to the office today for evaluation lower back pain. Licensed Staff Mft [id number] was used for this visit. It has been going on now for 15 years. He does not recall a specific event that started it. He used to lift heavy weights, and do heavy work so he is thinking it might be related to that. It is located in the very lower lumbar spine but can radiate all the way up to the back of his shoulders and head. Occasionally will feel tingling in his feet at night but otherwise denies any radicular symptoms down the legs. It is hard to stand and walk but it is also hard to sit for any length of time, he also reports difficulty sleeping. He has to put a pillow under his legs just to stay comfortable. it hurts to turn over in bed. He has tried tramadol, Tylenol, ibuprofen but those things do not seem to give him any relief. He did undergo a number of injections at your office. The 1st 1 that you did helped him for 2 months. He could not recall specifically which kind of injection that was done. Subsequent injections so did not give him any meaningful relief. It sounds like he was being considered for an intrasept procedure but he did not have Modic endplate changes. He did do physical therapy a few times, for least a few months during each session, but these things also did not help. He continues to do the stretching at home. 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 Overall he is frustrated with his quality of life. He had an MRI done showing some mild degenerative changes with an annular tear at L5-S1. He came in to see us for an evaluation. PMH: He reports being otherwise healthy outside of some high cholesterol and a right shoulder surgery. Social hx: He does not smoke, drink use any recreational drugs Medications: He takes a medication for cholesterol, gastritis and a baby aspirin Allergies: None Physical exam: He is slow to stand up, his strength and reflexes are normal, VALENTINE testing and [place] testing was negative. He has a very restricted range of motion of his hips with pain in his hips with movement. Imaging review: Lumbar MRI at [place] shows some very mild disc degeneration throughout his whole lumbar spine, there is no significant evidence of subluxations, Modic endplate changes, severe disc collapse etc.. There is a small annular tear at L5-S1. There is no meaningful nerve root compression. Impression: 59-year-old male presents with low back pain of unclear source, who has some mild degeneration in his lumbar spine but nothing that really lens itself to surgical correction. I explained to him with the help with the bicycle racer that a lot of these findings can be normal including the annular tear and that there is no specific indication for surgery for that. We also talked about the fact that back pain can often be difficult to find exactly what the source is. He will follow up with your office, as he would like to consider further options if you have them for interventional procedures. Thank you for allowing us to care for your patient. The total time spent with this visit with this patient was 45 minutes reviewing history, physical exam, lumbar imaging review, and implementation of treatment plan or further diagnostic testing Juan Snow MD,PhD [facility] Coding Level of Care Code New Pt Level 4 (09967) Diagnoses Back pain M54.9
== END 2024-09-01 10:04 | disposition home or self-care (01) ==
PROVIDERS: PCP Internal Medicine; Referring Provider Student in an Organized Health Care Education/Training Program; Visit Provider Physician Assistant
DX: M54.9 Dorsalgia, unspecified (principal)
CPT/HCPCS: 99204

== ENCOUNTER → 2024-09-01 08:55 | Outpatient (BNVA) | payer OTHER, SELFPAY | PROVIDERS: PCP Internal Medicine; Referring Provider Student in an Organized Health Care Education/Training Program; Visit Provider Physician Assistant | DX: M54.9 Dorsalgia, unspecified (principal) | CPT/HCPCS: 99202 ==

== ENCOUNTER 2024-09-11 08:43 | Outpatient (AMB) | payer OTHER, SELFPAY ==
[2024-09-11 08:49] VITALS: BMI 26.6
--- NOTE | 2024-09-11 08:49 | MHC.OFFVIS ---
Vital Signs 09/11/24 08:49 Height 5 ft 3 in Weight 150 lb BMI 26.6 Intake Visit Reasons: OV - RT RTC 03/08/24 Intake Note: Jack is a 58 year old right hand dominant male who presents today for a follow up of his shoulder s/p Right Rotator Cuff Repair with biceps tenotomy and subacromial decompression with distal clavicle excision03/08/24. At his last visit it was recommended that he he abstain from heavy lifting and from working for an additional 2 months. This is a large rotator cuff repair and he should return to work when he is pain-free Allergies raw vegetable [RAW VEGETABLE] Allergy (Intermediate, Verified 09/11/24 08:49) ITCHING Seasonal Allergies Allergy (Intermediate, Verified 09/11/24 08:49) Nasal congestion No Known Drug Allergies Allergy (Unknown, Verified 09/11/24 08:49) none HPI HPI OV - RT RTC 03/08/24: Details: Jack is a 58 year old right hand dominant male who presents today for a follow up of his shoulder s/p Right Rotator Cuff Repair with biceps tenotomy and subacromial decompression with distal clavicle excision03/08/24. At his last visit it was recommended that he he abstain from heavy lifting and from working for an additional 2 months. This is a large rotator cuff repair and he should return to work when he is pain-free [facility] Medical History Pre-op examination Pain in right shoulder Rotator cuff injury Osteoarthritis of left hip Chronic pain syndrome Spondylosis of lumbar spine Abnormal MRI BPH (benign prostatic hyperplasia) Erectile dysfunction Carpal tunnel syndrome Cholelithiasis Vitamin D deficiency Obstructive sleep apnea Hypercholesterolemia GERD (gastroesophageal reflux disease) Mixed incontinence Surgical History H/O shoulder surgery History of knee surgery History of endoscopy Hx of colonoscopy H/O carpal tunnel repair Hx of inguinal hernia repair Social History Household Members: Spouse Housing: House Are you a primary urgent care physician to a significant other at home: No Do you presently have visiting nurse or other home services: No Alcohol intake: current Alcohol intake frequency: former alcohol drinker Alcohol type: beer Patient Tobacco Use Status: Former Tobacco user Tobacco use type: Cigarette e-Cigarette/Vaping Use: Never Used Second Hand Smoke Exposure: No service: No Current occupational status: employed Current occupation: [employer] Current occupational exposures/hazards: Yes (eisenberg, stressed) Cognitive needs: No Hearing needs: No Vision needs: No Physical Exam Vital Signs: BMI result Body Mass Index 26.6 Extrem Other: 35/90/130/S1 Negative empty can Mild pain with active abduction past 90 degrees. Assessment & Plan Assessment & Plan (1) S/P rotator cuff repair: Comment: Right February 2024 Code(s): Z98.890 - Other specified postprocedural states Category: Surgical Plan: This is a 59-year-old gentleman status post right rotator cuff repair. This was a large tear and he is being super aggressive and his expectations are slightly unrealistic. I am very pleased with how he is doing with respect to strength and motion but he still has some pain with empty can testing. I suspect he is overdoing it. I recommend gentle pain-free range of motion. This should improve with time if he does not overdo it. Follow up in 3 months. Coding Level of Care Code Est Pt Level 3 (57497) Diagnoses S/P rotator cuff repair Z98.890
== END 2024-09-11 09:12 | disposition home or self-care (01) ==
PROVIDERS: PCP Internal Medicine; Visit Provider Orthopaedic Surgery
DX: Z47.89 Encounter for other orthopedic aftercare (principal); M25.511 Pain in right shoulder
CPT/HCPCS: 99213

== ENCOUNTER → 2024-09-11 08:43 | Outpatient (BNVA) | payer OTHER, SELFPAY | PROVIDERS: PCP Internal Medicine; Visit Provider Orthopaedic Surgery | DX: Z98.890 Other specified postprocedural states (principal) | CPT/HCPCS: 99212 ==

== ENCOUNTER 2024-09-21 09:57 | Outpatient (REF) | payer OTHER, SELFPAY ==
[2024-09-21 11:19] LABS: Alanine Aminotransferase 47 U/L (0-40); Albumin Level 4.4 g/dL (3.5-5.0); Alkaline Phosphatase 62 U/L (39-117); Anion Gap 7 (12-20); Aspartate Amino Transferase 32 U/L (5-37); Bilirubin Total 0.7 mg/dL (0.0-1.0); Blood Urea Nitrogen 17 mg/dL (9-16); Calcium 9.5 mg/dL (8.4-10.2); Carbon Dioxide 29 mmol/L (22-29); Chloride 109 mmol/L (96-108); Cholesterol 158 mg/dL (<200); Estimated Glomerular Filt Rate > 60; Glucose Random 105 mg/dL (60-115); HDL Cholesterol 44 mg/dL (>40); LDL Cholesterol Calculated 102 mg/dL (<100); Potassium 4.4 mmol/L (3.3-5.1); Sodium 141 mmol/L (135-145); Total Protein 7.4 g/dL (6.5-8.0); Triglycerides 60 mg/dL (<150)
[2024-09-26 23:03] LABS: PSA, Ultra Sensitive 6.02 ng/mL
== END 2024-09-21 09:58 | disposition home or self-care (01) ==
LOC: HO.LAB 09:57
PROVIDERS: PCP Internal Medicine; Visit Provider Internal Medicine
DX: Z01.818 Encounter for other preprocedural examination (principal); E78.00 Pure hypercholesterolemia, unspecified; R97.20 Elevated prostate specific antigen [PSA]; Z79.899 Other long term (current) drug therapy
CPT/HCPCS: 36415; 80053; 80061; 84153; 99212

== ENCOUNTER 2024-09-21 10:29 | Outpatient (AMB) | payer OTHER, SELFPAY ==
--- NOTE | 2024-09-21 10:33 | MHC.PC.OV ---
Vital Signs 09/21/24 10:35 Height 5 ft 3 in Weight 155 lb BMI 27.5 BP 122/80 Blood Pressure Location Lt brachial Position Sitting Pulse 80 Pulse Source Pulse Oximeter Temp 96.4 F L Temp Source Skin Pulse Oximetry (%) 99 Oxygen Delivery Method Room Air Intake Visit Reasons: Clearance for the [facility] Intake Note: Patient is here for a Pre-op for back procedure scheduled with [facility] (Natasha Mejía [phone]) on unknown. Motion Picture Director Required: No Hematologist Oncologist: Not Required per policy Accompanied by: Self / Same As Patient Allergies raw vegetable [RAW VEGETABLE] Allergy (Intermediate, Verified 09/21/24 10:50) ITCHING Seasonal Allergies Allergy (Intermediate, Verified 09/21/24 10:50) Nasal congestion No Known Drug Allergies Allergy (Unknown, Verified 09/21/24 10:50) none Medication List - Last Reconciled 09/21/24 by Ana Palacio PA-C acetaminophen ER (Tylenol 8 Hour) 650 mg PO Q8H PRN ascorbate calcium (vitamin C) 500 mg PO DAILY aspirin 81 mg PO DAILY escitalopram oxalate 5 mg PO DAILY famotidine 40 mg PO BEDTIME gabapentin 300 mg PO meloxicam 15 mg PO DAILY omeprazole 20 mg PO .daily 90 days sennosides (senna) 17.2 mg (2 x 8.6 mg) PO BEDTIME 30 days sildenafil (Viagra) 100 mg PO DAILY PRN simvastatin 20 mg PO BEDTIME valacyclovir 500 mg PO BID Tobacco use date assessed: 09/21/24 Dental Screening Dental Screen Date: 09/21/24 Did you have a dental visit in the last 12 months?: Yes Did you have a dental problem in the last 6 months where you did not have access to dental care?: No Was dental information given to patient?: Patient has dentist HPI Clearance for the [facility] HPI Details 59-year-old male with past medical history of BPH, sleep apnea, hypercholesterolemia, GERD, impaired glucose tolerance, generalized anxiety disorder last seen by Dr. Oconnell 05/2024 coming in for preoperative visit. Patient is scheduled to have a lumbar interlaminar/transforaminal epidural steroid injection with [facility] and needs clearance to discontinue aspirin. Hypercholesterolemia: Currently on simvastatin 20 mg and taking aspirin as preventative medication. Patient has no history of MD, CVA, TIA, CHF or diabetes mellitus. [facility] Medical History Pre-op examination Pain in right shoulder Rotator cuff injury Osteoarthritis of left hip Chronic pain syndrome Spondylosis of lumbar spine Abnormal MRI BPH (benign prostatic hyperplasia) Erectile dysfunction Carpal tunnel syndrome Cholelithiasis Vitamin D deficiency Obstructive sleep apnea Hypercholesterolemia GERD (gastroesophageal reflux disease) Mixed incontinence Surgical History H/O shoulder surgery History of knee surgery History of endoscopy Hx of colonoscopy H/O carpal tunnel repair Hx of inguinal hernia repair Social History Household Members: Spouse Housing: House Are you a primary direct support professional caregiver to a significant other at home: No Do you presently have visiting nurse or other home services: No Alcohol intake: current Alcohol intake frequency: former alcohol drinker Alcohol type: beer Patient Tobacco Use Status: Former Tobacco user Tobacco use type: Cigarette e-Cigarette/Vaping Use: Never Used Second Hand Smoke Exposure: Yes service: No Current occupational status: employed Current occupation: [employer] Current occupational exposures/hazards: 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 1. Little interest or pleasure in doing things: not at all 2. Feeling down, depressed, or hopeless: not at all 3. Trouble falling or staying asleep, or sleeping too much: not at all 4. Feeling tired or having little energy: not at all 5. Poor appetite or overeating: not at all 6. Feeling bad about yourself - or that you are a failure or have let yourself or your family down: not at all 7. Trouble concentrating on things, such as reading the newspaper or watching television: not at all 8. Moving or speaking so slowly that other people could have noticed. Or the opposite - being so fidgety or restless that you have been moving around a lot more than usual: not at all 9. Thoughts that you would be better off or of hurting yourself in some way: not at all Total score: 0 Depression Screening Interpretation: Negative Depression Screening Done: Yes Source: Developed by Drs. Anderson Johnson, Dee Dee Stewart, Paresh Durant and colleagues, with an educational bia from [employer]. Thrive Questionnaire Date Thrive assessed: 09/21/24 I am a: Patient What is your living situation today?: I have a steady place to live Within the past 12 months, did the food you bought not last and you didn't have the money to get more?: Never true Within the past 12 months, did you worry whether your food would run out before you got money to buy more?: Never true Do you have trouble paying for medicines?: No Do you have trouble getting transportation to medical appointments?: No Do you have trouble paying your heating and electricity bill?: No Do you have trouble taking care of your child, family member or friend?: No Do you have trouble with day-to-day activities such as bathing, preparing meals, shopping, managing finances, etc.?: No Are you currently unemployed and looking for a job?: No Are you interested in more education?: No Please select the resources that you would like help with: None Currently or been in a relationship where the following occur: No concerns reported THRIVE Score: 0 AUDIT C Alcohol Use Questionnaire (AUDIT-C) 1. How often do you have a drink containing alcohol?: 4 or more times a week 2. How many drinks containing alcohol do you have on a typical day when you are drinking?: 1 or 2 Total Score: 4 KAROLINE-7 AMB Questionnaire KAROLINE-7 Date KAROLINE - 7 assessed: 09/21/24 Feeling nervous, anxious, or on edge: 0 = Not at all Not being able to stop or control worryin = Not at all Worrying too much about different things: 0 = Not at all Trouble relaxin = Not at all Being so restless that it is hard to sit still: 0 = Not at all Becoming easily annoyed or irritable: 0 = Not at all Feeling afraid as if something awful might happen: 0 = Not at all Total KAROLINE-7 score (0-4 normal; 5-9 mild; 10-14 moderate; 15-21 severe): 0 Source: Developed by Dee Dee Bennett Terry, Paresh Durant and colleagues, with an educational bia from [employer]. Review of Systems Const Denies body aches, Denies chills, Denies fever(s), Denies headache(s) and Denies poor appetite Eyes Reports no additional complaints ENT Denies dysphagia, Denies dizziness, Denies headache(s) and Denies odynophagia Card Denies chest pain, Denies syncope, Denies edema, Denies irregular heart rhythm, Denies lightheadedness and Denies dyspnea Resp Denies cough and Denies dyspnea GI Denies abdominal pain, Denies constipation, Denies dysphagia, Denies diarrhea, Denies nausea, Denies odynophagia and Denies vomiting Reports no additional complaints Musc Reports no additional complaints and Denies abnormal gait Skin/Breast Reports system reviewed and no additional complaints, except as documented Neuro Denies abnormal gait, Denies dizziness, Denies syncope and Denies headache(s) Psych Reports no additional complaints Physical exam (Primary Care) Vital Signs: Last Vital Signs Temp 96.4 F L 09/21/24 10:35 Pulse 80 09/21/24 10:35 BP 122/80 09/21/24 10:35 Pulse Ox 99 09/21/24 10:35 Oxygen Delivery Method Room Air 09/21/24 10:35 BMI result Body Mass Index 27.5 Tobacco/Smoking Status: Tobacco use Status Tobacco use date assessed 09/21/24 09/21/24 10:43 Patient Tobacco Use Status Former Tobacco user 09/21/24 10:43 Tobacco use type Cigarette 09/21/24 10:43 e-Cigarette/Vaping Use Never Used 09/21/24 10:43 PHQ-9: PHQ-9 Score PHQ-9: Total score 0 09/21/24 10:43 Depression Screening Interpretation: Negative Thrive Assessment: Date of Thrive Assessment Date Thrive assessed 09/21/24 09/21/24 10:43 Currently or been in a relationship where the following occur: No concerns reported Const General: cooperative, healthy appearing, comfortable and no acute distress Orientation/consciousness: patient oriented x3 HENMT Head: Yes normocephalic Ears: hearing grossly normal bilaterally General nose exam: Normal external nose present Eyes General: appearance normal, both eyes and all related structures Conjunctivae: conjunctivae normal Neck Neck: Yes full ROM and Yes no lymphadenopathy Resp Effort & Inspection: normal respiratory effort Auscultation: clear to auscultation bilaterally, no crackles, no rales, no rhonchi and no wheezes Cardio Rate: regular rate Rhythm: regular rhythm Skin General skin exam: no rashes or lesions noted Neuro General: patient oriented x3 Gait exam (Neuro): Normal gait present Extrem General: Yes normal to inspection, Yes full ROM and No edema Psych Affect: normal affect Attitude: cooperative Insight: Good insight present (Psych) Judgement: Good judgement present (Psych) Coding Level of Care Code Est Pt Level 3 (82818) Diagnoses Pre-op examination Z01.818 Assessment & Plan Assessment & Plan (1) Pre-op examination: Code(s): Z01.818 - Encounter for other preprocedural examination Category: Medical Plan: Regarding preop clearance, the patient is at low risk for proposed procedure. Reviewed with the patient that no procedure is completely free of risk and that this examination is to assist the surgeon in reviewing informed consent. At this time aspirin is okay to be discontinued. Patient is not taking this medication for treatment and rather as preventative medication. Advised patient discontinue aspirin and any NSAIDs while week prior to the procedure and regarding other medications to deferred to surgeon's instructions. He may resume his medication after procedure has been completed. Plan This note was constructed using voice recognition software. While every effort has been made to ensure accuracy and fur weigher, still areas may have been included sometimes these areas may affect the content or meeting of the given symptoms. Total time spent caring for the patient today was 20 minutes. This includes time spent before the visit reviewing the chart, time spent during the visit, and time spent after the visit and documentation.
[2024-09-21 10:35] VITALS: BP 122/80; PULSE 80; TEMP 35.8; O2SAT 99; BMI 27.5
== END 2024-09-21 11:27 | disposition home or self-care (01) ==
PROVIDERS: PCP Internal Medicine
DX: Z01.818 Encounter for other preprocedural examination (principal)

== ENCOUNTER 2024-10-12 09:43 | Outpatient (AMB) | payer OTHER, SELFPAY ==
--- NOTE | 2024-10-12 09:53 | MHC.PC.OV ---
Vital Signs 10/12/24 09:54 Height 5 ft 3 in Weight 156 lb BMI 27.6 BP 118/72 Blood Pressure Location Lt brachial Position Sitting Pulse 68 Pulse Source Pulse Oximeter Pulse Oximetry (%) 97 Oxygen Delivery Method Room Air Intake Visit Reasons: psa elevation , cholesterol, r shoulder pain Allergies raw vegetable [RAW VEGETABLE] Allergy (Intermediate, Verified 10/12/24 09:55) ITCHING Seasonal Allergies Allergy (Intermediate, Verified 10/12/24 09:55) Nasal congestion No Known Drug Allergies Allergy (Unknown, Verified 10/12/24 09:55) none Tobacco use date assessed: 09/21/24 Dental Screening Dental Screen Date: 10/12/24 Did you have a dental visit in the last 12 months?: Yes Did you have a dental problem in the last 6 months where you did not have access to dental care?: No Was dental information given to patient?: Patient has dentist HPI psa elevation , cholesterol, r shoulder pain HPI Details The patient is a 59-year-old male presenting for a follow-up visit in preparation for a scheduled lumbar intralaminar/transforaminal epidural steroid injection. The procedure is planned for management of back pain associated with lumbar spondylosis and disk issues, notably a tear in the L5-S1 region, with earlier interventions having included MRI studies conducted in January 2023. The patient's back pain has been significant, affecting his range of motion, particularly bending, and resulting in substantial pain. He is concurrently following up with orthopedics for prior rotator cuff repair surgery of the right shoulder, which involved biceps tenotomy, subacromial decompression, and distal clavicular excision, performed in February 2024, and advised against lifting more than 10 pounds due to complete tear healing progress. Past blood work indicates normal platelet count, mildly elevated blood sugar at 105 mg/dL, and known liver function elevation consistent with a previous diagnosis of fatty liver disease. The cholesterol levels are reportedly controlled with simvastatin, and the patient maintains regular use of CPAP for obstructive sleep apnea. Recent focus includes the PSA level, which was noted at 6.02, prompting concern for prostate evaluation and management by urology, with associated urinary symptoms such as nocturia and dysuria. The patient also manages anxiety with lifestyle considerations and acknowledges lifestyle factors contributing to fatty liver disease. He reports substantial occupational and lifestyle impact from ongoing musculoskeletal and neuropathic pain, noting prior trial of tramadol with some relief, and expresses a need for effective pain management, alongside current follow-up with [facility] for lumbar management. [facility] Medical History Pre-op examination Pain in right shoulder Rotator cuff injury Osteoarthritis of left hip Chronic pain syndrome Spondylosis of lumbar spine Abnormal MRI BPH (benign prostatic hyperplasia) Erectile dysfunction Carpal tunnel syndrome Cholelithiasis Vitamin D deficiency Obstructive sleep apnea Hypercholesterolemia GERD (gastroesophageal reflux disease) Mixed incontinence Surgical History H/O shoulder surgery History of knee surgery History of endoscopy Hx of colonoscopy H/O carpal tunnel repair Hx of inguinal hernia repair Social History Household Members: Spouse Housing: House Are you a primary home care and home health aides teacher to a significant other at home: No Do you presently have visiting nurse or other home services: No Alcohol intake: current Alcohol intake frequency: former alcohol drinker Alcohol type: beer Patient Tobacco Use Status: Former Tobacco user Tobacco use type: Cigarette e-Cigarette/Vaping Use: Never Used Second Hand Smoke Exposure: Yes service: No Current occupational status: employed Current occupation: [employer] Current occupational exposures/hazards: 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 1. Little interest or pleasure in doing things: not at all 2. Feeling down, depressed, or hopeless: not at all 3. Trouble falling or staying asleep, or sleeping too much: not at all 4. Feeling tired or having little energy: not at all 5. Poor appetite or overeating: not at all 6. Feeling bad about yourself - or that you are a failure or have let yourself or your family down: not at all 7. Trouble concentrating on things, such as reading the newspaper or watching television: not at all 8. Moving or speaking so slowly that other people could have noticed. Or the opposite - being so fidgety or restless that you have been moving around a lot more than usual: not at all 9. Thoughts that you would be better off or of hurting yourself in some way: not at all Total score: 0 Depression Screening Interpretation: Negative Depression Screening Done: Yes Source: Developed by Drs. Anderson Johnson, Dee Dee Stewart, Paresh Durant and colleagues, with an educational bia from [employer]. Thrive Questionnaire Date Thrive assessed: 09/21/24 AUDIT C Alcohol Use Questionnaire (AUDIT-C) 1. How often do you have a drink containing alcohol?: 4 or more times a week 2. How many drinks containing alcohol do you have on a typical day when you are drinking?: 1 or 2 Total Score: 4 KAROLINE-7 AMB Questionnaire KAROLINE-7 Date KAROLINE - 7 assessed: 09/21/24 Source: Developed by Drs. Anderson Johnson, Dee Dee Stewart, Paresh Durant and colleagues, with an educational bia from [employer]. Physical exam (Primary Care) Vital Signs: Last Vital Signs Pulse 68 10/12/24 09:54 BP 118/72 10/12/24 09:54 Pulse Ox 97 10/12/24 09:54 Oxygen Delivery Method Room Air 10/12/24 09:54 BMI result Body Mass Index 27.6 Tobacco/Smoking Status: Tobacco use Status Tobacco use date assessed 09/21/24 10/12/24 10:01 Patient Tobacco Use Status Former Tobacco user 10/12/24 10:01 Tobacco use type Cigarette 10/12/24 10:01 e-Cigarette/Vaping Use Never Used 10/12/24 10:01 PHQ-9: PHQ-9 Score PHQ-9: Total score 0 10/12/24 10:01 Depression Screening Interpretation: Negative Thrive Assessment: Date of Thrive Assessment Date Thrive assessed 09/21/24 10/12/24 10:01 Const General: alert; No acute distress Eyes Conjunctivae: conjunctivae normal Resp Auscultation: clear to auscultation bilaterally Cardio Rate: regular rate Rhythm: regular rhythm GI Inspection: Yes normal to inspection Extrem General: Yes normal to inspection and No edema Coding Level of Care Code Est Pt Level 4 (89753) Complex EM visit Add On G2211 Diagnoses S/P rotator cuff repair Z98.890 Impaired fasting glucose R73.01 Gastroesophageal reflux disease without esophagitis K21.9 Esophagitis presence: without esophagitis Hypercholesterolemia E78.00 Obstructive sleep apnea G47.33 Spondylosis of lumbar spine M47.816 Assessment & Plan Assessment & Plan (1) S/P rotator cuff repair: Comment: Right February 2024 Code(s): Z98.890 - Other specified postprocedural states Category: Surgical Plan: Continue to follow-up with orthopedics. Patient was advised to avoid lifting. (2) Impaired fasting glucose: Code(s): R73.01 - Impaired fasting glucose Category: Medical Plan: Decrease the amount of carbohydrate intake, pasta, bread, rice and potatoes are all sugar and that is aside from all the sweet stuff, remember that fruits are good but they are Sweet also. (3) GERD (gastroesophageal reflux disease): Code(s): K21.9 - Gastro-esophageal reflux disease without esophagitis Category: Medical Qualifiers: Esophagitis presence: without esophagitis Qualified Code(s): K21.9 - Gastro-esophageal reflux disease without esophagitis Plan: Avoid the foods that causes that usually spicy foods, tomato products, juices, coffee, soda and foods that your sensitive to. After eating do not lie down, allow 3-4 hours before in lie down. And keep the head of bed above 30 degrees to avoid the acid from going up. (4) Hypercholesterolemia: Code(s): E78.00 - Pure hypercholesterolemia, unspecified Category: Medical Plan: Avoid fried foods, chicken skin, eggs, butter margarine, pastries and meat. Be it pork or beef they have a lot of cholesterol patient on simvastatin 20 mg at bedtime (5) Obstructive sleep apnea: Comment: CPAP Code(s): G47.33 - Obstructive sleep apnea (adult) (pediatric) Category: Medical Plan: Continue the CPAP more than 4 hours a night and benefits from this. (6) Spondylosis of lumbar spine: Comment: June 2021. No acute fracture or subluxation. Decreased T1/T2 marrow signal throughout the visualized osseous structures, which can be seen in the setting of marrow reconversion. This can be seen in response to physiologic stimuli such as obesity, cigarette smoking, and heavy athletic training or a pathologic condition such as chronic hemolytic anemia and marrow replacing disorders. 2. Mild broad-based disc bulge at L3-L4 with a shallow posterior central disc protrusion and bilateral facet arthropathy which causes minimal central canal and mild bilateral neural foraminal stenosis. 3. Broad-based disc bulge at L4-L5 which is slightly asymmetric to the right. Along with bilateral facet arthropathy, this causes minimal central canal and mild bilateral neural foraminal stenosis. 4. Shallow disc bulges at L2-L3 and L5-S1 with bilateral facet arthropathy causing mild bilateral neural foraminal stenosis. Code(s): M47.816 - Spondylosis without myelopathy or radiculopathy, lumbar region Category: Medical Plan: Patient is seeing the [facility]. Plan 1. For Lumbar Spondylosis, proceed with the scheduled lumbar intralaminar/transforaminal epidural steroid injection and continue orthopedic follow-up; avoid lifting over 10 pounds. - For Rotator Cuff Tear, continue to avoid lifting and follow the orthopedic recommendation for rehabilitation progress monitoring. - For Fatty Liver Disease, advise maintaining healthy diet and regular exercise. Review liver function tests periodically. - For Pain Management, continue tramadol as needed and consider additional medical management options in collaboration with pain management specialists. - For Anxiety Disorder, ensure adequate mental health support and lifestyle modifications. - Preventative Care and Health Maintenance: Advise ongoing monitoring for potential fluency in influenza, COVID-19, and RSV contexts; pediatric genetic counselor on precautions during travel and public exposure. Orders: Referrals Urology Referral R97.20 - Elevated prostate specific antigen [PSA]
[2024-10-12 09:54] VITALS: BP 118/72; PULSE 68; O2SAT 97; BMI 27.6
--- OUTSIDE RECORDS SUMMARY | 2024-10-12 10:14 | XMS_ITS | Encounter Summary ---
Author Organization [employer] Address [address] [place] [address] Care Team Providers Care Assistant Foreman Name Role Phone Unavailable Primary Care Provider Unavailabl e Encounter Details Date Type Department Care Team (Latest Contact Info) Description 12/26/[address] [facility] CONVERSIONS Dental, Provider, DDS Social History Tobacco Use Types Packs/Day Years Used Date Smoking Tobacco: Never Assessed Comments Unknown Sex and Gender Information Value Date Recorded Sex Assigned at Female 06/29/2022 10:34 AM EDT Legal Sex Female 10:34 AM EDT Gender Identity Male 03/03/2024 11:29 AM EDT Sexual Orientation Straight 03/03/2024 11 :29 AM EDT documented as of this encounter Plan of Treatment Not on file documented as of this encounter Visit Diagnoses Not on filedocumented in this encounter
--- OUTSIDE RECORDS SUMMARY | 2024-10-12 10:14 | XMS_ITS | Encounter Summary ---
Author Organization [employer] Address [address] [place] [address] Care Team Providers Care Museum Docent Name Role Phone Unavailable Primary Care Provider Unavailabl e Encounter Details Date Type Department Care Team (Latest Contact Info) Description 09/13/[address] [facility] CONVERSIONS Dental, Provider, DDS Social History [...]
--- OUTSIDE RECORDS SUMMARY | 2024-10-12 10:14 | XMS_ITS | Clinical Summary ---
Author Organization [employer] Address [address] [facility] [address] [place] [address] Care Team Providers Care Senior Data Integration Developer Name Role Phone Unavailable Primary Care Provider Unavailabl e Allergies No known active allergies Medications morphine ER (Netta) 10 MG 24 hr capsule TAKE 1 CAPSULE BY MOUTH EVERY TWELVE HOURS FOR 3 DAYS 4 Active omeprazole (PriLOSEC) [address] capsule TAKE 1 CAPSULE BY MOUTH EVERY DAY 30min BEFORE BREAKFAST Active meloxicam (Mobic) 15 MG tablet Take 15 mg by mouth Once per day. Active escitalopram (Lexapro) 5 MG tablet Take 5 mg by mouth Once per day. 4 Active cyclobenzaprine (Flexeril) 5 MG tablet Take 5 mg by mouth if needed in the morning, at noon, and at bedtime for muscle spasms. 4 Active Social History Tobacco Use Types Packs/Day Years Used Date Smoking Tobacco: Never Smokeless Tobacco: Never Tobacco Cessation:Counseling Given: Not Answered Comments Unknown Sex and Gender Information Value Date Recorded Sex Assigned at Female 06/29/2022 10:34 AM EDT Legal Sex Female 10:34 AM EDT Gender Identity Male 03/03/2024 11:29 AM EDT Sexual Orientation Straight 03/03/2024 11 :29 AM EDT Plan of Treatment Health Maintenance Due Date Last Done Comments CT Colonography 1965 Colonoscopy 1965 Colorectal Cancer Screening 1965 Depression Screening 1965 FIT DNA/Cologuard 1965 FIT 1965 FOBT 1965 HIV Screening 1965 Lipid Panel 1965 SDOH Screening 1965 Sigmoidoscopy 1965 Alcohol/Substance Use Screening 1977 Hepatitis C Screening 1983 Hepatitis B Vaccines (1 of 3 - 19+ 3-dose series) 1984 Pap Smear 1986 Cervical Cancer Screening 1995 HPV/Cotest 1995 Mammogram 2005 Pneumococcal Vaccine: 50+ Years (1 of 1 - PCV) 2015 Zoster Vaccines (1 of 2) 2015 Dental Oral Exam 03/14/2020 09/13/2019, 09/20/2018 Dental Prophylaxis 03/14/2020 09/13/2019, 12/26/2018 Dental X-Ray: Full Mouth 09/21/2021 09/20/2018 COVID-19 Vaccine ( season) 2024 02/09/2021, 01/12/2021 Influenza Vaccine (#1) 2024 3, 07/27/2022, 09/24/2021, Additional history exists Dental X-Ray: Bitewings 03/04/2025 03/03/20 24, 09/13/2019, 09/20/2018 Tobacco Screening 03/27/2025 03/27/2024 DTaP/Tdap/Td Vaccines (2 - Td or Tdap) 09/24/2031 09/24/2021 RSV Patients and Patients Aged 60 years or older (1 - 1-dose 75+ series) 2040 HIB Vaccines Aged Out No longer eligi ble based on patient's age to complete this topic HPV Vaccines Aged Out No longer eligi ble based on patient's age to complete this topic Hepatitis A Vaccines Aged Out No long er eligible based on patient's age to complete this topic IPV Vaccines Aged Out No longer eligi ble based on patient's age to complete this topic Meningococcal Vaccine Aged Out No jozef lia eligible based on patient's age to complete this topic RSV under 20 months Aged Out No longe r eligible based on patient's age to complete this topic Rotavirus Vaccines Aged Out No longer eligible based on patient's age to complete this topic Procedures Procedure Name Priority Date/Time Associated Diagnosis Comments BITEWING - SINGLE RADIOGRAPHIC IMAGE Routine 03/03/2024 11:30 AM EDT Dental caries Symptomatic irreversible pulpitis PROPHYLAXIS - ADULT Routine 09/13/2019 1 2:00 AM EST PERIODIC ORAL EVALUATION - ESTABLISHED PATIENT Routine 09/13/2019 12:00 AM EST INTRAORAL - COMPLETE SERIES OF RADIOGRAPHIC IMAGES Routine 09/20/2018 12:00 AM EST from Last 3 Months or Most Recently Relevant to Health Maintenance Insurance DENTAL - [facility]SN PARTIAL (MEDICAID)
== END 2024-10-12 10:21 | disposition home or self-care (01) ==
PROVIDERS: PCP Internal Medicine; Visit Provider Internal Medicine
DX: Z98.890 Other specified postprocedural states (principal); R73.01 Impaired fasting glucose; K21.9 Gastro-esophageal reflux disease without esophagitis; E78.00 Pure hypercholesterolemia, unspecified; G47.33 Obstructive sleep apnea (adult) (pediatric); M47.816 Spondylosis without myelopathy or radiculopathy, lumbar region

== ENCOUNTER → 2024-10-12 09:43 | Outpatient (BNVA) | payer OTHER, SELFPAY | PROVIDERS: PCP Internal Medicine; Visit Provider Internal Medicine | DX: R73.01 Impaired fasting glucose (principal); K21.9 Gastro-esophageal reflux disease without esophagitis; E78.00 Pure hypercholesterolemia, unspecified; G47.33 Obstructive sleep apnea (adult) (pediatric); M47.816 Spondylosis without myelopathy or radiculopathy, lumbar region; Z98.890 Other specified postprocedural states | CPT/HCPCS: 99212 ==

== ENCOUNTER 2024-11-20 14:32 | Outpatient (AMB) | payer OTHER, SELFPAY ==
--- NOTE | 2024-11-20 14:36 | A.OFFVIS_ITS ---
Intake Visit Reasons: elevated PSA Intake Note: New patient presents today for initial visit for elevated PSA Urology Medication:Sildenafil Blood Thinner:Aspirin Antibiotic Allergies:none PVR:23ml Building Dismantler Services: Building Dismantler Offered & Declined Information Interpreted: non-clinical & clinical Allergies raw vegetable [RAW VEGETABLE] Allergy (Intermediate, Verified 11/20/24 14:43) ITCHING Seasonal Allergies Allergy (Intermediate, Verified 11/20/24 14:43) Nasal congestion No Known Drug Allergies Allergy (Unknown, Verified 11/20/24 14:43) none Medication List - Last Reconciled 11/20/24 by Sofia Silva MD acetaminophen ER (Tylenol 8 Hour) 650 mg PO Q8H PRN ascorbate calcium (vitamin C) 500 mg PO DAILY aspirin 81 mg PO DAILY escitalopram oxalate 5 mg PO DAILY famotidine 40 mg PO BEDTIME gabapentin 300 mg PO meloxicam 15 mg PO DAILY omeprazole 20 mg PO .daily 90 days sennosides (senna) 17.2 mg (2 x 8.6 mg) PO BEDTIME 30 days sildenafil (Viagra) 100 mg PO DAILY PRN simvastatin 20 mg PO BEDTIME tamsulosin (Flomax) 0.4 mg PO BEDTIME tramadol 50 mg PO DAILY PRN valacyclovir 500 mg PO BID HPI Comments Details: Jack is a 59-year-old male presenting with an elevated Prostate-Specific Antigen (PSA) level for evaluation. The history traces an upward trend in PSA values from 3.20 on 12 Jan 2023, increasing to 4.38 by 22 June 2024, and reaching a current level of 6.02 by 21 September 2024. The patient does not report any prior interventions concerning these elevated PSA levels. PMH - chronic back pain, uses tramadol and meloxicam prn. I have discussed that elevated PSA may indicate changes in the prostate including benign enlargement, cancer and an inflammatory condition. I have discussed Transrectal Ultrasound guided biopsy of the prostate. Discussed risks to include but not limited to pain, blood in stool, urine and semen, septicemia, need to repeat biopsy. He complains of urinary symptoms consistent with Benign Prostatic Hyperplasia (BPH), including nocturia, reporting urination thrice nightly, and increased frequency during the day, especially after coffee intake. He also experiences a notably weak urinary stream with intermittent flow. Urinary Symptoms Review - Nocturia three times per night - Increased urinary frequency every half-hour during daytime, exacerbated by coffee intake - Weak urinary stream with intermittent flow Results - Labs: - PSA ---- 12 Jan 2023:---3.20 ng/mL - PSA ---- 22 June 2024:---4.38 ng/mL - PSA ---- 21 September 2024:----6.02 ng/mL - Bladder scan PVR today - 28 mL PFSH Medical History Pre-op examination Pain in right shoulder Rotator cuff injury Osteoarthritis of left hip Chronic pain syndrome Spondylosis of lumbar spine Abnormal MRI BPH (benign prostatic hyperplasia) Erectile dysfunction Carpal tunnel syndrome Cholelithiasis Vitamin D deficiency Obstructive sleep apnea Hypercholesterolemia GERD (gastroesophageal reflux disease) Mixed incontinence Surgical History H/O shoulder surgery History of knee surgery History of endoscopy Hx of colonoscopy H/O carpal tunnel repair Hx of inguinal hernia repair Social History Household Members: Spouse Housing: House Are you a primary md do resident urgent care to a significant other at home: No Do you presently have visiting nurse or other home services: No Alcohol intake: current Alcohol intake frequency: former alcohol drinker Alcohol type: beer Patient Tobacco Use Status: Former Tobacco user Tobacco use type: Cigarette e-Cigarette/Vaping Use: Never Used Second Hand Smoke Exposure: Yes service: No Current occupational status: 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, stressed) Cognitive needs: No Hearing needs: No Vision needs: Yes (Glasses) Review of Systems Const All systems reviewed & are unremarkable except as noted in HPI and below Reports no additional complaints Eyes Reports no additional complaints ENT Reports no additional complaints Card Reports no additional complaints Resp Reports no additional complaints GI Reports no additional complaints Reports as per HPI Musc Reports no additional complaints Skin/Breast Reports system reviewed and no additional complaints, except as documented Neuro Reports no additional complaints Psych Reports no additional complaints Endo Reports no additional complaints Boom/Lymph Reports no additional complaints Aller/Immun Reports no additional complaints Physical Exam Const General: healthy appearing, no acute distress and well developed Orientation/consciousness: patient oriented x3 HEENT Head: Yes normocephalic and Yes atraumatic Eyes Conjunctivae: conjunctivae normal Neck Neck: Yes normal visual inspection Chest Chest palpation & inspection: normal inspection of the chest Resp Effort & Inspection: normal respiratory effort GI Inspection: Yes normal to inspection Neuro General: patient oriented x3 Psych Appearance: grossly normal Affect: normal affect Assessment & Plan Assessment & Plan (1) PSA elevation: Code(s): R97.20 - Elevated prostate specific antigen [PSA] Category: Medical (2) Nocturia more than twice per night: Code(s): R35.1 - Nocturia Category: Medical (3) BPH loc w urin obs/LUTS: Code(s): N40.1 - Benign prostatic hyperplasia with lower urinary tract symptoms Category: Medical Plan Plan - Schedule prostate biospy - local - Stop all blood thinners including aspirin two weeks prior to the procedure. - Follow up with the pharmacy for prescribed medications. - Take antibiotics as directed start one day prior to prostate biopsy. - Tylenol or tramadol can be used for pain control, but avoid taking meloxicam. - Tamsulosin 0.4mg daily for BPH symptoms Orders: Orders AMB Urinalysis Automated Today Z13.9 - Encounter for screening, unspecified Medications: New tamsulosin (Flomax) 0.4 mg PO BEDTIME 90 caps 2RF sulfamethoxazole-trimethoprim 800-160 mg (Bactrim DS) start abx one day prior to prostate biopsy 1 tab PO BID 8 tabs 0RF Patient Instructions: The patient had an opportunity to ask questions regarding treatment plan. The patient expressed understanding and agreement with the above treatment plan. The patient is aware they should contact our office by phone for worsening of their current condition or the appearance of new symptoms. Compliance is encouraged with any medications and followup testing that is ordered. It is a privilege to be allowed the opportunity to participate in the urologic care of your patient. If you have any questions or concerns regarding treatment for the above conditions please do not hesitate to contact me. The office telephone contact is [phone]. This note is constructed in part using voice recognition software. While every effort has been made to ensure accuracy precipitator operator errors may have been included. Yours sincerely, Sofia Silva MD Scribe Plan - Not visible on output: Patient was informed and verbally consented to the use of an ambient scribe for clinic note documentation during this visit. Coding Level of Care Code New Pt Level 4 (05446) Diagnoses PSA elevation R97.20 Nocturia more than twice per night R35.1 BPH loc w urin obs/LUTS N40.1
== END 2024-11-20 15:27 | disposition home or self-care (01) ==
LOC: HO.HUSH 14:32
PROVIDERS: PCP Internal Medicine; Visit Provider Urology
DX: N40.1 Benign prostatic hyperplasia with lower urinary tract symptoms (principal); R97.20 Elevated prostate specific antigen [PSA]; R35.1 Nocturia; Z13.9 Encounter for screening, unspecified
CPT/HCPCS: 99204

== ENCOUNTER → 2024-11-20 14:32 | Outpatient (BNVA) | payer OTHER, SELFPAY | PROVIDERS: PCP Internal Medicine; Visit Provider Urology | DX: N40.1 Benign prostatic hyperplasia with lower urinary tract symptoms (principal); R35.1 Nocturia; R35.0 Frequency of micturition; R39.12 Poor urinary stream; R97.20 Elevated prostate specific antigen [PSA] | CPT/HCPCS: 81003; 99202 ==

== ENCOUNTER 2024-12-07 07:52 | Outpatient (REF) | payer OTHER, SELFPAY ==
--- OUTSIDE RECORDS SUMMARY | 2024-12-07 07:56 | XMS_ITS | Encounter Summary ---
Author Organization [employer] Address [address] [facility] [address] [place] [address] Care Team Providers Care Golf Professional Name Role Phone Unavailable Primary Care Provider Unavailabl e Encounter Details Date Type Department Care Team (Latest Contact Info) Description 09/13/2019 Abstract [facility] CONVERSIONS Dental, Provider, DDS Social History [...]
--- OUTSIDE RECORDS SUMMARY | 2024-12-07 07:56 | XMS_ITS | Clinical Summary ---
Author Organization [employer] Address [address] [facility] 7t [place] [address] Care Team Providers Care Business Planning Director Name Role Phone Unavailable Primary Care Provider [...]
--- OUTSIDE RECORDS SUMMARY | 2024-12-07 07:56 | XMS_ITS | Encounter Summary ---
Author Organization [employer] Address [address] [facility] [address] [place] [address] Care Team Providers Care Cad Manager Name Role Phone Unavailable Primary Care Provider Unavailabl e Encounter Details Date Type Department Care Team (Latest Contact Info) Description 12/26/2018 Abstract [facility] CONVERSIONS Dental, Provider, DDS Social History Tobacco [...]
--- NOTE | 2024-12-07 08:43 | P.OP_ITS ---
Operative Note Operative Note Date of Service: 12/07/24 Narrative: Preoperative diagnosis: Elevated PSA Postoperative diagnosis: Elevated PSA Procedure: 1. transrectal ultrasound measurement of prostate 2. transrectal ultrasound-guided pudendal nerve block 3. transrectal ultrasound-guided prostate biopsy 12 core Surgeon: Dr. Carl Anderson Anesthetic: 10cc 1% lidocaine Indications for procedure: Elevated PSA 4.2 14% Counselling: Technical aspects, risks and benefits of proposed procedure were discussed in full. All questions have been answered, written consent has been obtained and patient agrees to proceed. Procedure: The patient was brought into the procedure area and placed in a left lateral decubitus position. Patient identity confirmed. Perioperative antibiotics confirmed. Safety pause time out performed. ELIOT was performed to dilate rectal sphincter Iodine 10cc with 60 cc gel was placed per rectum to reduce infection risk using a catheter tip syringe. 8 Hz Colette rectal end-fire ultrasound probe was placed transrectally without difficulty. The prostate was visualized. Seminal vesicles were normal. Prostate margins were clearly demarcated. Bladder was seen superiorly. No cystic structures were noted No calcifications were noted at the surgical margin The prostate was otherwise heterogenous in nature, whorls of BPH The prostate was measured in 3 dimensions Prostatic Width: 5.5 cm Prostatic Height: 4.1 cm Urethral Length: 4.5 cm Total volume equals : 55 ml An ultrasound-guided pudendal nerve block was performed using a 22 gauge spinal needle in the sagittal plane. 4 cc of 1% lidocaine placed at the junction of each seminal vesicle and 2 cc placed at the apex of the prostate. A 12 core biopsy was performed with 6 cores each side using an 18 gauge prostate biopsy gun. Two cores each were taken at the prostate apex, mid and base on each side. Cores were spaced between lateral and medial aspects. Each core was examined as placed on specimen foam as part of quality assurance engineer to ensure a minimum 1 cm of length and minimal discontinuity. He tolerated the procedure well with minimal rectal bleeding. Blood pressure remained stable following procedure. He was able to ambulate to bathroom after 5 minutes. Printed instructions regarding antibiotic use and common adverse events from the procedure such as low-grade temperature, potential infection and bleeding were given. He understands to call the office or go to an emergency room should any of these events arise. Pathology: 12 core prostate biopsy. CPT code 37612: Transrectal ultrasound; this is a diagnostic test for evaluation of the prostate and surrounding structures, looking for abnormalities or suspicious areas worrisome for cancer CPT code 47098: Biopsy, prostate; needle or punch, single or multiple, any ap proach CPT code 93692: Ultrasonic guidance for needle placement (eg, biopsy, aspiration, injection, localization device), imaging supervision and interpretation
[2024-12-07] MEDS: Lidocaine HCl 1 % MPF 5 ML VIAL 10 ML SUBCUT (08:47)
[2024-12-07] MEDS: levoFLOXacin 500 MG TABLET PO (08:48)
== END 2024-12-07 07:53 | disposition home or self-care (01) ==
LOC: HO.US 07:52
PROVIDERS: PCP Internal Medicine; Visit Provider Urology
DX: R97.20 Elevated prostate specific antigen [PSA] (principal)
CPT/HCPCS: 55700; 76942; 88305; J2003

== ENCOUNTER → 2024-12-07 07:52 | Outpatient (BNV) | payer OTHER, SELFPAY | PROVIDERS: PCP Internal Medicine; Visit Provider Urology | DX: R97.20 Elevated prostate specific antigen [PSA] (principal) | CPT/HCPCS: 55700; 76872; 76942 ==

== ENCOUNTER 2024-12-11 08:40 | Outpatient (AMB) | payer OTHER, SELFPAY ==
[2024-12-11 08:42] VITALS: BMI 27.6
--- NOTE | 2024-12-11 08:42 | MHC.OFFVIS ---
Vital Signs 12/11/24 08:42 Height 5 ft 3 in Weight 156 lb BMI 27.6 Intake Visit Reasons: OV - RT RTC 03/08/24 Intake Note: Jack is a 58 year old right hand dominant male who presents today for a follow up of his shoulder about 9 months s/p Right Rotator Cuff Repair with biceps tenotomy and subacromial decompression with distal clavicle excision03/08/24. Allergies raw vegetable [RAW VEGETABLE] Allergy (Intermediate, Verified 12/11/24 08:43) ITCHING Seasonal Allergies Allergy (Intermediate, Verified 12/11/24 08:43) Nasal congestion No Known Drug Allergies Allergy (Unknown, Verified 12/11/24 08:43) none HPI HPI OV - RT RTC 03/08/24: Details: Nine months status post large right rotator cuff repair. Overall he is doing well. Still some discomfort and tightness with heavy lifting. He has full range of motion. He is working. [facility] Medical History Pre-op examination Pain in right shoulder Rotator cuff injury Osteoarthritis of left hip Chronic pain syndrome Spondylosis of lumbar spine Abnormal MRI BPH (benign prostatic hyperplasia) Erectile dysfunction Carpal tunnel syndrome Cholelithiasis Vitamin D deficiency Obstructive sleep apnea Hypercholesterolemia GERD (gastroesophageal reflux disease) Mixed incontinence Surgical History H/O shoulder surgery History of knee surgery History of endoscopy Hx of colonoscopy H/O carpal tunnel repair Hx of inguinal hernia repair Social History Household Members: Spouse Housing: House Are you a primary residential care facility manager to a significant other at home: No Do you presently have visiting nurse or other home services: No Alcohol intake: current Alcohol intake frequency: former alcohol drinker Alcohol type: beer Patient Tobacco Use Status: Former Tobacco user Tobacco use type: Cigarette e-Cigarette/Vaping Use: Never Used Second Hand Smoke Exposure: Yes service: No Current occupational status: 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 40/90/150/L5 Assessment & Plan Assessment & Plan (1) S/P rotator cuff repair: Comment: Right February 2024 Code(s): Z98.890 - Other specified postprocedural states Category: Surgical Plan: Status post rotator cuff repair doing well. No overhead heavy lifting but is working and doing overall quite well. Understands these limitations. Can follow up as needed. Coding Level of Care Code Est Pt Level 3 (44075) Diagnoses S/P rotator cuff repair Z98.890
--- OUTSIDE RECORDS SUMMARY | 2024-12-11 09:14 | XMS_ITS | Encounter Summary ---
Author Organization [employer] Address [address] [facility] [address] [place] [address] Care Team Providers Care Nuclear Operator Name Role Phone Unavailable Primary Care Provider Unavailabl e Encounter Details Date Type Department Care Team (Latest Contact Info) Description 09/13/2019 Abstract [facility] CONVERSIONS Dental, Provider, DDS Social [...]
--- OUTSIDE RECORDS SUMMARY | 2024-12-11 09:14 | XMS_ITS | Encounter Summary ---
Author Organization [employer] Address [address] [facility] [address] [place] [address] Care Team Providers Care Tower Truck Driver Name Role Phone Unavailable Primary Care Provider Unavailabl e Encounter Details Date Type Department Care Team (Latest Contact Info) Description 12/26/2018 Abstract [facility] CONVERSIONS Dental, Provider, DDS Social History Tobacco [...]
--- OUTSIDE RECORDS SUMMARY | 2024-12-11 09:14 | XMS_ITS | Clinical Summary ---
Author Organization [employer] Address [address] [facility] [address] [place] [address] Care Team Providers Care Under Water Assistant Name Role Phone Unavailable Primary Care Provider [...]
== END 2024-12-11 08:59 | disposition home or self-care (01) ==
LOC: HO.HOS 08:40
PROVIDERS: PCP Internal Medicine; Visit Provider Orthopaedic Surgery
DX: S43.431D Superior glenoid labrum lesion of right shoulder, subsequent encounter (principal); M19.011 Primary osteoarthritis, right shoulder
CPT/HCPCS: 99213

== ENCOUNTER → 2024-12-11 08:40 | Outpatient (BNVA) | payer OTHER, SELFPAY | PROVIDERS: PCP Internal Medicine; Visit Provider Orthopaedic Surgery | DX: Z09 Encounter for follow-up examination after completed treatment for conditions other than malignant neoplasm (principal); Z87.39 Personal history of other diseases of the musculoskeletal system and connective tissue; Z98.890 Other specified postprocedural states | CPT/HCPCS: 99212 ==

== ENCOUNTER 2024-12-12 08:50 | Outpatient (AMB) | payer OTHER, SELFPAY ==
[2024-12-12 08:56] VITALS: BP 114/80; PULSE 76; BMI 27.3
--- NOTE | 2024-12-12 08:56 | A.OFFVIS_ITS ---
Vital Signs 12/12/24 08:56 Height 5 ft 3 in Weight 154 lb 5.177 oz BMI 27.3 BP 114/80 Blood Pressure Location Lt brachial Position Sitting Pulse 76 Intake Visit Reasons: 7 months follow up Intake Note: Jack returns in 7 months follow up GERD and constipation. CC: Reports that he continues doing well with medication. Denies other GI symptoms. Office Nurse Required: No Office Nurse Services: Office Nurse Offered & Declined Accompanied by: Self / Same As Patient Allergies raw vegetable [RAW VEGETABLE] Allergy (Intermediate, Verified 12/12/24 09:06) ITCHING Seasonal Allergies Allergy (Intermediate, Verified 12/12/24 09:06) Nasal congestion No Known Drug Allergies Allergy (Unknown, Verified 12/12/24 09:06) none HPI HPI 7 months follow up: Details: Assessment & Plan (1) GERD (gastroesophageal reflux disease): Code(s): K21.9 - Gastro-esophageal reflux disease without esophagitis Category: Medical (2) Illiterate: Comment: Does not read in [place] or British Code(s): Z55.0 - Illiteracy and low-level literacy Category: Social Hx (3) Erosive esophagitis: Code(s): K22.10 - Ulcer of esophagus without bleeding Category: Medical (4) Constipation: Code(s): K59.00 - Constipation, unspecified Category: Medical Plan He continues to do well. He continues on his omeprazole, senna and famotidine with good control of her GI conditions. The only problem is shoulder pain and hand pain OA. ROV 6 mos. Medications: Refilled famotidine 40 mg PO BEDTIME 30 tabs 6RF K22.10 - Ulcer of esophagus without bleeding omeprazole Take 1 tablet daily 30 minutes before breakfast 20 mg PO .daily 90 tabs 3RF 90 days K22.10 - Ulcer of esophagus without bleeding sennosides (senna) 17.2 mg (2 x 8.6 mg) PO BEDTIME 60 caps 6RF constipation 30 days TODAY'S VISIT British #declines He continues on his omeprazole 20 mg but he has not been utilizing the famotidine. He likes to take all of his pills at night. He still complains of breakthrough GERD particularly when drinking coffee, eating li, or drinking/eating something acidic. He finds this is very diet limiting. Because he is only on 20 mg I think will increase it to 40 mg and stop the famotidine since that is clearly not being used efficaciously. He continues on his senna for intermittent constipation as needed. He will be due for a screening colonoscopy next year in 2025. Return office visit in 6 months [facility] Medical History (Updated 12/12/24 @ 09:06 by KIARA Colindres) Back pain BPH (benign prostatic hyperplasia) Frequency of micturition Odynophagia Painful arc syndrome of right shoulder Rotator cuff tear, right Pre-op examination Pain in right shoulder Rotator cuff injury Osteoarthritis of left hip Chronic pain syndrome Spondylosis of lumbar spine Abnormal MRI BPH (benign prostatic hyperplasia) Erectile dysfunction Carpal tunnel syndrome Cholelithiasis Vitamin D deficiency Obstructive sleep apnea Hypercholesterolemia GERD (gastroesophageal reflux disease) Mixed incontinence Surgical History (Updated 12/12/24 @ 09:06 by KIARA Colindres) S/P rotator cuff repair H/O shoulder surgery History of knee surgery History of endoscopy Hx of colonoscopy H/O carpal tunnel repair Hx of inguinal hernia repair Social History (Reviewed 12/11/24 @ 08:44 by Caty Hayward [facility]) Household Members: Spouse Housing: House Are you a primary progressive care manager to a significant other at home: No Do you presently have visiting nurse or other home services: No Alcohol intake: current Alcohol intake frequency: former alcohol drinker Alcohol type: beer Patient Tobacco Use Status: Former Tobacco user Tobacco use type: Cigarette e-Cigarette/Vaping Use: Never Used Second Hand Smoke Exposure: Yes service: No Current occupational status: employed Current occupation: [employer] Current occupational exposures/hazards: Yes (eisenberg, stressed) Cognitive needs: No Hearing needs: No Vision needs: Yes (Glasses) Review of Systems Const Denies fatigue, Denies fever(s), Denies night sweats, Denies poor appetite and Denies weight loss Eyes Details: glasses Reports requires corrective lenses ENT Reports Normal hearing present, Denies dental pain, Denies dysphagia, Denies hearing loss, Denies mouth pain, Denies odynophagia, Denies throat swelling, Denies tongue swelling and Reports other (Dentition adequate) Card Reports no additional complaints Resp Reports no additional complaints GI Details: Denies abdominal pain, Denies melena, Denies bloating, Denies hematochezia, Reports constipation, Denies GI cramping, Denies dysphagia, Denies excessive flatus, Denies early satiety, Reports heartburn, Denies diarrhea, Denies nausea, Denies odynophagia, Denies vomiting and Denies hematemesis Skin/Breast Denies pruritus, Denies lesions, Denies rash and Denies jaundice Neuro Reports Normal hearing present and Denies Abnormal speech present Endo Denies fatigue Aller/Immun Denies throat swelling and Denies tongue swelling Physical Exam Vital Signs: BMI result Body Mass Index 27.3 Const General: cooperative, no acute distress, well developed and well groomed Nutritional Appearance: average body habitus and well nourished Orientation/consciousness: oriented to person, oriented to place and oriented to time Limitations: No language barrier and other limitations (Literacy level) HEENT Head: Yes normocephalic and Yes atraumatic Eyes General: appearance normal, both eyes and all related structures Pupils: Equal, round and reactive pupils present Neck Neck: Yes normal visual inspection and Yes no lymphadenopathy Thyroid: Thyroid normal Resp Effort & Inspection: normal respiratory effort and able to speak in complete sentences Auscultation: clear to auscultation bilaterally Cardio Rate: regular rate Rhythm: regular rhythm Heart sounds: Normal, physiologic split S2 sound present Peripheral pulses: radial pulses present and posterior tibial pulses present GI Inspection: No distended and No Abdominal panniculus present Palpation (GI): Soft to palpation, nontender, no guarding, not rigid and No hepatosplenomegaly present Percussion: Yes normal to percussion Auscultation: normal bowel sounds Rectal Exam - Male: Yes deferred Skin General skin exam: no rashes or lesions noted, turgor normal, skin not dry, no jaundice, No spider nevi and no striae Rashes: no rashes Nails: normal Neuro General: oriented to person, oriented to place and oriented to time Cranial nerves: Yes Equal, round and reactive pupils present and Yes Normal hearing present Speech: No Abnormal speech present Extrem General: Yes normal to inspection, No clubbing, No cyanosis and No edema Psych Appearance: grossly normal and well kempt Mental Status: mental status grossly normal Speech and movement: Normal speech and movement present Affect: normal affect Attitude: cooperative Thought process: Normal thought process present and not confabulating Thought content: Normal thought content present Insight: Limited insight present (Psych) Judgement: Limited judgement present (Psych) Assessment & Plan Assessment & Plan (1) GERD (gastroesophageal reflux disease): Code(s): K21.9 - Gastro-esophageal reflux disease without esophagitis Category: Medical Qualifiers: Esophagitis presence: without esophagitis Qualified Code(s): K21.9 - Gastro-esophageal reflux disease without esophagitis (2) Illiterate: Comment: Does not read in [place] or British Code(s): Z55.0 - Illiteracy and low-level literacy Category: Medical (3) Constipation: Code(s): K59.00 - Constipation, unspecified Category: Medical Plan British #declines He continues on his omeprazole 20 mg but he has not been utilizing the famotidine. He likes to take all of his pills at night. He still complains of breakthrough GERD particularly when drinking coffee, eating li, or drinking/eating something acidic. He finds this is very diet limiting. Because he is only on 20 mg I think will increase it to 40 mg and stop the famotidine since that is clearly not being used efficaciously. He continues on his senna for intermittent constipation as needed. He will be due for a screening colonoscopy next year in 2025. Return office visit in 6 months Medications: New omeprazole 40 mg PO DAILY 30 days 30 caps 12RF Refilled sennosides (senna) 17.2 mg (2 x 8.6 mg) PO BEDTIME 30 days 60 caps 6RF constipation Discontinued omeprazole Take 1 tablet daily 30 minutes before breakfast Discontinued Reason: Doctor's Order 20 mg PO .daily 90 days 90 tabs 3RF K22.10 - Ulcer of esophagus without bleeding famotidine Discontinued Reason: Doctor's Order 40 mg PO BEDTIME 30 tabs 6RF K22.10 - Ulcer of esophagus without bleeding Coding Level of Care Code Est Pt Level 3 (79361) Diagnoses Gastroesophageal reflux disease without esophagitis K21.9 Esophagitis presence: without esophagitis Illiterate Z55.0 Constipation K59.00
== END 2024-12-12 09:39 | disposition home or self-care (01) ==
LOC: HO.HGI 08:51
PROVIDERS: PCP Internal Medicine; Visit Provider Nurse Practitioner
DX: K21.9 Gastro-esophageal reflux disease without esophagitis (principal); Z55.0 Illiteracy and low-level literacy; K59.00 Constipation, unspecified
CPT/HCPCS: 99213

== ENCOUNTER → 2024-12-12 08:50 | Outpatient (BNVA) | payer OTHER, SELFPAY | PROVIDERS: PCP Internal Medicine; Visit Provider Nurse Practitioner | DX: K21.9 Gastro-esophageal reflux disease without esophagitis (principal); K59.00 Constipation, unspecified; Z55.0 Illiteracy and low-level literacy | CPT/HCPCS: 99212 ==

== ENCOUNTER 2025-01-16 08:28 | Outpatient (AMB) | payer OTHER, SELFPAY ==
[2025-01-16 08:30] VITALS: BP 118/68; PULSE 78; O2SAT 98; BMI 26.7
--- NOTE | 2025-01-16 08:30 | A.OFFPC_ITS ---
Vital Signs 01/16/25 08:30 Height 5 ft 3 in Weight 151 lb BMI 26.7 BP 118/68 Blood Pressure Location Lt brachial Position Sitting Pulse 78 Pulse Source Pulse Oximeter Pulse Oximetry (%) 98 Oxygen Delivery Method Room Air Intake Visit Reasons: LBP and Shoulder pain R Forms Analyst Required: No Allergies raw vegetable [RAW VEGETABLE] Allergy (Intermediate, Verified 01/16/25 08:31) ITCHING Seasonal Allergies Allergy (Intermediate, Verified 01/16/25 08:31) Nasal congestion No Known Drug Allergies Allergy (Unknown, Verified 01/16/25 08:31) none Medication List - Last Reconciled 01/16/25 by Agustina Oliveira Po, acetaminophen ER (Tylenol 8 Hour) 650 mg PO Q8H PRN ascorbate calcium (vitamin C) 500 mg PO DAILY aspirin 81 mg PO DAILY escitalopram oxalate 5 mg PO DAILY omeprazole 40 mg PO DAILY 30 days sennosides (senna) 17.2 mg (2 x 8.6 mg) PO BEDTIME 30 days sildenafil (Viagra) 100 mg PO DAILY PRN simvastatin 20 mg PO BEDTIME tamsulosin (Flomax) 0.4 mg PO BEDTIME timolol maleate 0.5% drps ophthalmic (eye) tramadol 50 mg PO DAILY PRN valacyclovir 500 mg PO BID Tobacco use date assessed: 09/21/24 Dental Screening Dental Screen Date: 10/12/24 [facility] Medical History Back pain BPH (benign prostatic hyperplasia) Frequency of micturition Odynophagia Painful arc syndrome of right shoulder Rotator cuff tear, right Pre-op examination Pain in right shoulder Rotator cuff injury Osteoarthritis of left hip Chronic pain syndrome Spondylosis of lumbar spine Abnormal MRI BPH (benign prostatic hyperplasia) Erectile dysfunction Carpal tunnel syndrome Cholelithiasis Vitamin D deficiency Obstructive sleep apnea Hypercholesterolemia GERD (gastroesophageal reflux disease) Mixed incontinence Surgical History S/P rotator cuff repair H/O shoulder surgery History of knee surgery History of endoscopy Hx of colonoscopy H/O carpal tunnel repair Hx of inguinal hernia repair Social History Household Members: Spouse Housing: House Are you a primary patient care assistant to a significant other at home: No Do you presently have visiting nurse or other home services: No Alcohol intake: current Alcohol intake frequency: former alcohol drinker Alcohol type: beer Patient Tobacco Use Status: Former Tobacco user Tobacco use type: Cigarette e-Cigarette/Vaping Use: Never Used Second Hand Smoke Exposure: Yes service: No Current occupational status: 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 1. Little interest or pleasure in doing things: not at all 2. Feeling down, depressed, or hopeless: not at all 3. Trouble falling or staying asleep, or sleeping too much: not at all 4. Feeling tired or having little energy: not at all 5. Poor appetite or overeating: not at all 6. Feeling bad about yourself - or that you are a failure or have let yourself or your family down: not at all 7. Trouble concentrating on things, such as reading the newspaper or watching television: not at all 8. Moving or speaking so slowly that other people could have noticed. Or the opposite - being so fidgety or restless that you have been moving around a lot more than usual: not at all 9. Thoughts that you would be better off or of hurting yourself in some way: not at all Total score: 0 Depression Screening Interpretation: Negative Depression Screening Done: Yes Source: Developed by Drs. Anderson Johnson, Dee Dee Stewart, Paresh Durant and colleagues, with an educational bia from [email or web address] Thrive Questionnaire Date Thrive assessed: 09/21/24 I am a: Patient What is your living situation today?: I have a steady place to live Within the past 12 months, did the food you bought not last and you didn't have the money to get more?: Never true Within the past 12 months, did you worry whether your food would run out before you got money to buy more?: Never true Do you have trouble paying for medicines?: No Do you have trouble getting transportation to medical appointments?: No Do you have trouble paying your heating and electricity bill?: No Do you have trouble taking care of your child, family member or friend?: No Do you have trouble with day-to-day activities such as bathing, preparing meals, shopping, managing finances, etc.?: No Are you currently unemployed and looking for a job?: No Are you interested in more education?: No Please select the resources that you would like help with: None Currently or been in a relationship where the following occur: No concerns reported THRIVE Score: 0 AUDIT C Alcohol Use Questionnaire (AUDIT-C) 1. How often do you have a drink containing alcohol?: Never Total Score: 0 KAROLINE-7 AMB Questionnaire KAROLINE-7 Date KAROLINE - 7 assessed: 09/21/24 Feeling nervous, anxious, or on edge: 0 = Not at all Not being able to stop or control worryin = Not at all Worrying too much about different things: 0 = Not at all Trouble relaxin = Not at all Being so restless that it is hard to sit still: 0 = Not at all Becoming easily annoyed or irritable: 0 = Not at all Feeling afraid as if something awful might happen: 0 = Not at all Total KAROLINE-7 score (0-4 normal; 5-9 mild; 10-14 moderate; 15-21 severe): 0 Source: Developed by Drs. Anderson Johnson, Dee Dee Stewart, Paresh Durant and colleagues, with an educational bia from [email or web address] Physical exam (Primary Care) Vital Signs: Last Vital Signs Pulse 78 01/16/25 08:30 BP 118/68 01/16/25 08:30 Pulse Ox 98 01/16/25 08:30 Oxygen Delivery Method Room Air 01/16/25 08:30 BMI result Body Mass Index 26.7 Tobacco/Smoking Status: Tobacco use Status Tobacco use date assessed 09/21/24 01/16/25 08:36 Patient Tobacco Use Status Former Tobacco user 01/16/25 08:36 Tobacco use type Cigarette 01/16/25 08:36 e-Cigarette/Vaping Use Never Used 01/16/25 08:36 PHQ-9: PHQ-9 Score PHQ-9: Total score 0 01/16/25 08:48 Depression Screening Interpretation: Negative Thrive Assessment: Date of Thrive Assessment Date Thrive assessed 09/21/24 01/16/25 08:36 Currently or been in a relationship where the following occur: No concerns reported Const General: alert; No acute distress Eyes Conjunctivae: conjunctivae normal Resp Auscultation: clear to auscultation bilaterally Cardio Rate: regular rate Rhythm: regular rhythm GI Inspection: Yes normal to inspection Extrem General: Yes normal to inspection and No edema Coding Level of Care Code Est Pt Level 4 (17859) Complex EM visit Add On G2211 Diagnoses BPH loc w urin obs/LUTS N40.1 Gastroesophageal reflux disease without esophagitis K21.9 Esophagitis presence: without esophagitis Hypercholesterolemia E78.00 Obstructive sleep apnea G47.33 Overweight (BMI 25.0-29.9) E66.3 Impaired fasting glucose R73.01 Generalized anxiety disorder F41.1 Assessment & Plan Assessment & Plan (1) BPH loc w urin obs/LUTS: Code(s): N40.1 - Benign prostatic hyperplasia with lower urinary tract symptoms Category: Medical Plan: Patient follows up with urology. Biopsy noted of the prostate with no malignancy noted. (2) GERD (gastroesophageal reflux disease): Code(s): K21.9 - Gastro-esophageal reflux disease without esophagitis Category: Medical Qualifiers: Esophagitis presence: without esophagitis Qualified Code(s): K21.9 - Gastro-esophageal reflux disease without esophagitis Plan: Avoid the foods that causes that usually spicy foods, tomato products, juices, coffee, soda and foods that your sensitive to. After eating do not lie down, allow 3-4 hours before in lie down. And keep the head of bed above 30 degrees to avoid the acid from going up. Patient has been placed on Pepcid and omeprazole (3) Hypercholesterolemia: Code(s): E78.00 - Pure hypercholesterolemia, unspecified Category: Medical Plan: Avoid fried foods, chicken skin, eggs, butter margarine, pastries and meat. Be it pork or beef they have a lot of cholesterol on simvastatin 20 mg once a day August 2024 last blood work (4) Obstructive sleep apnea: Comment: CPAP Code(s): G47.33 - Obstructive sleep apnea (adult) (pediatric) Category: Medical Plan: Continue with CPAP more than 4 hours a night and benefits from this. (5) Overweight (BMI 25.0-29.9): Code(s): E66.3 - Overweight Category: Medical Plan: Diet and exercise (6) Impaired fasting glucose: Code(s): R73.01 - Impaired fasting glucose Category: Medical Plan: Decrease the amount of carbohydrate intake, pasta, bread, rice and potatoes are all sugar and that is aside from all the sweet stuff, remember that fruits are good but they are Sweet also. (7) Generalized anxiety disorder: Code(s): F41.1 - Generalized anxiety disorder Category: Medical Plan: Continue with Lexapro presently. Plan History of Present Illness The patient is a 59-year-old male presenting for follow-up on GERD, lumbar spondylosis, and BPH. He has a long-standing history of GERD, recently necessitating increased famotidine dosage, alongside omeprazole, to manage esophageal reflux and associated symptoms. His lumbar spondylosis remains problematic, with only temporary relief from epidural steroid injections and pe rsistent pain affecting occupational activities. He was evaluated for BPH, with a recent prostate biopsy ruling out malignancy despite an elevated PSA of 4.2. Previous rotator cuff surgery necessitates avoidance of overhead lifting. Anxiety is self-managed with periodic Lexapro use. Health Maintenance - GERD management with omeprazole and increased famotidine - Lipid management on simvastatin 20 mg daily - Continued CPAP usage for obstructive sleep apnea more than 4 hours per night - Elevated PSA monitored with no malignancy on biopsy - Next shingles vaccine planned for next year - Tetanus vaccine up to date - Regular colon assessment with a last test in March 2023 Social History - Occupation involves physical activity, impacting back pain management - Consumes 1-2 cups of coffee daily and enjoys vegetables in diet - Occasional use of psyllium for constipation management - Experiences anxiety related to occupational stress Review of Systems - Gastrointestinal: Reports heartburn exacerbated by spicy foods and carbonated beverages; constipation occurs occasionally. - Genitourinary: Reports nocturia (once per night); transient hematuria post prostate biopsy. - Musculoskeletal: Reports back pain from lumbar spondylosis; recent rotator cuff repair with no overhead lifting advised. - Psychological: Occasionally experiences anxiety, managed with Lexapro. Physical Exam - Cardiovascular- Regular heart sounds on auscultation Results - Labs: PSA level of 4.2, elevated liver function; normal renal function and blood count from August blood work - Biopsy: Prostate biopsy negative for malignancy Plan The patient's GERD will continue to be managed with omeprazole and an increased dose of famotidine, along with dietary adjustments to prevent symptom exacerbation. His lumbar spondylosis treatment plan remains focused on managing pain with analgesics such as tramadol, with surgical interventions being considered later if necessary. The patient's BPH is monitored with regular checks on PSA levels. Anxiety relief will be facilitated with as-needed Lexapro, and psychosocial support is emphasized. Lastly, simvastatin will continue for hypercholesterolemia, and the adherence to CPAP for obstructive sleep apnea is underscored. Patient was informed and verbally consented to the use of an ambient scribe for clinic note documentation during this visit. Discussion Notes I discussed the ongoing management of the patient's GERD with increased famotidine based on recent symptoms. We reviewed lumbar spondylosis and the temporary benefit of previous injections, maintaining a cautious approach toward further interventions. The patient acknowledged understanding the benefits and risks associated with ongoing pain management options. We discussed the functionality of his current BPH regime, with a PSA level assessment and post- biopsy results confirming no malignancy despite recorded elevation. I emphasized the significance of communication with his spouse to manage work-related anxiety effectively. Furthermore, health maintenance strategies included maintaining lipid levels with simvastatin and adherence to CPAP therapy, as well as upcoming preventative measures such as shingles immunization. Patient Instructions - Continue taking omeprazole and famotidine as prescribed to manage GERD. - Avoid foods and drinks that cause heartburn, like spicy foods and soda. - Use tramadol as needed for back pain. - Take simvastatin daily for cholesterol management. - Continue to use CPAP nightly to manage sleep apnea. - Communicate with your spouse about any stress-related issues. - Monitor urinary symptoms and report any significant changes. - Consider increasing fiber intake to help with constipation. - Next year's shingles vaccine should be planned. Medications: Refilled tramadol 50 mg PO DAILY PRN 30 tabs 0RF pain M25.511 - Pain in right shoulder simvastatin 20 mg PO BEDTIME 90 tabs 2RF
--- OUTSIDE RECORDS SUMMARY | 2025-01-16 08:38 | XMS_ITS | Clinical Summary ---
Author Organization [employer] Address [address] [place] [address] Care Team Providers Care Continuity Coordinator Name Role Phone Unavailable Primary Care Provider [...] Panel 1965 SDOH Screening 1965 Sigmoidoscopy 1965 Disability Screening 1965 Alcohol/Substance Use Screening 1977 Hepatitis C [...] 2024 02/09/2021, 01/12/2021 Influenza Vaccine (#1) 2024 , 07/27/2022, 09/24/2021, Additional history exists Dental X-Ray: [...] patient's age to complete this topic Meningococcal B Vaccine Aged Out No l onger eligible based on patient's age to complete [...]
--- OUTSIDE RECORDS SUMMARY | 2025-01-16 08:38 | XMS_ITS | Encounter Summary ---
Author Organization [employer] Address [address] [facility] [place] [address] Care Team Providers Care Steel Manager Name Role Phone Unavailable Primary Care Provider Unavailabl e Encounter Details Date Type Department Care Team (Latest Contact Info) Description 09/13/2019 Abstract [facility] CONVERSIONS Dental, Provider, DDS Social History [...]
--- OUTSIDE RECORDS SUMMARY | 2025-01-16 08:38 | XMS_ITS | Encounter Summary ---
Author Organization [employer] Address [address] [place] [address] Care Team Providers Care Bicycle Service Technician Name Role Phone Unavailable Primary Care Provider Unavailabl e Encounter Details Date Type Department Care Team (Latest Contact Info) Description 12/26/2018 Abstract [facility] CONVERSIONS Dental, Provider, DDS Social History Tobacco [...]
== END 2025-01-16 09:09 | disposition home or self-care (01) ==
LOC: HO.HMCH 08:28
PROVIDERS: PCP Internal Medicine; Visit Provider Internal Medicine
DX: N40.1 Benign prostatic hyperplasia with lower urinary tract symptoms (principal); K21.9 Gastro-esophageal reflux disease without esophagitis; E78.00 Pure hypercholesterolemia, unspecified; G47.33 Obstructive sleep apnea (adult) (pediatric); E66.3 Overweight; R73.01 Impaired fasting glucose; F41.1 Generalized anxiety disorder

== ENCOUNTER → 2025-01-16 08:28 | Outpatient (BNVA) | payer OTHER, SELFPAY | PROVIDERS: PCP Internal Medicine; Visit Provider Internal Medicine | DX: N40.1 Benign prostatic hyperplasia with lower urinary tract symptoms (principal); K21.9 Gastro-esophageal reflux disease without esophagitis; E78.00 Pure hypercholesterolemia, unspecified; G47.33 Obstructive sleep apnea (adult) (pediatric); E66.3 Overweight; R73.01 Impaired fasting glucose; F41.1 Generalized anxiety disorder; Z68.26 Body mass index [BMI] 26.0-26.9, adult | CPT/HCPCS: 99212 ==

== ENCOUNTER 2025-01-25 08:01 | Outpatient (AMB) | payer OTHER, SELFPAY ==
--- OUTSIDE RECORDS SUMMARY | 2025-01-25 08:04 | XMS_ITS | Encounter Summary ---
Author Organization [employer] Address [address] [facility] [address] [place] [address] Care Team Providers Care [place] Conservation Laborer Name Role Phone Unavailable Primary Care Provider Unavailabl e Encounter Details Date Type Department Care Team (Latest Contact Info) Description 09/13/2019 Abstract [facility] CONVERSIONS Dental, Provider, DDS Social History [...]
--- NOTE | 2025-01-25 08:09 | MHC.OFFVIS ---
Intake Visit Reasons: Prostate Biopsy results Intake Note: Patient presents today for prostate biopsy results Urology Medication:Sildenafil, Tamsulosin Blood Thinner:Aspirin Antibiotic Allergies:none PVR:0ml Welding Foreman Services: Welding Foreman Offered & Declined Welding Foreman Name: Vivek Adler Information Interpreted: non-clinical & clinical Allergies raw vegetable [RAW VEGETABLE] Allergy (Intermediate, Verified 01/25/25 08:14) ITCHING Seasonal Allergies Allergy (Intermediate, Verified 01/25/25 08:14) Nasal congestion No Known Drug Allergies Allergy (Unknown, Verified 01/25/25 08:14) none Medication List - Last Reconciled 01/25/25 by Sofia Silva MD acetaminophen ER (Tylenol 8 Hour) 650 mg PO Q8H PRN ascorbate calcium (vitamin C) 500 mg PO DAILY aspirin 81 mg PO DAILY escitalopram oxalate 5 mg PO DAILY finasteride (Proscar) 5 mg PO DAILY omeprazole 40 mg PO DAILY 30 days sennosides (senna) 17.2 mg (2 x 8.6 mg) PO BEDTIME 30 days sildenafil (Viagra) 100 mg PO DAILY PRN simvastatin 20 mg PO BEDTIME tamsulosin (Flomax) 0.4 mg PO BEDTIME timolol maleate 0.5% drps ophthalmic (eye) tramadol 50 mg PO DAILY PRN valacyclovir 500 mg PO BID HPI Comments Details: 01/25/25--Jack Costa is here for follow-up post prostate biopsy that was performed on 12/07/2024 the path results came back benign tissue negative for malignancy, hands ultrasound guided, estimated prostate volume 55 mL. Plan continue tamsulosin 0.4 mg daily. We will start Proscar 5 mg daily. Follow-up with PSA prior in 6 months Jack is a 59-year-old male presenting with an elevated Prostate-Specific Antigen (PSA) level for evaluation. The history traces an upward trend in PSA values from 3.20 on 12 Jan 2023, increasing to 4.38 by 22 June 2024, and reaching a current level of 6.02 by 21 September 2024. The patient does not report any prior interventions concerning these elevated PSA levels. PMH - chronic back pain, uses tramadol and meloxicam prn. I have discussed that elevated PSA may indicate changes in the prostate including benign enlargement, cancer and an inflammatory condition. I have discussed Transrectal Ultrasound guided biopsy of the prostate. Discussed risks to include but not limited to pain, blood in stool, urine and semen, septicemia, need to repeat biopsy. He complains of urinary symptoms consistent with Benign Prostatic Hyperplasia (BPH), including nocturia, reporting urination thrice nightly, and increased frequency during the day, especially after coffee intake. He also experiences a notably weak urinary stream with intermittent flow. Urinary Symptoms Review - Nocturia three times per night - Increased urinary frequency every half-hour during daytime, exacerbated by coffee intake - Weak urinary stream with intermittent flow Results - Labs: - PSA ---- 12 Jan 2023:---3.20 ng/mL - PSA ---- 22 June 2024:---4.38 ng/mL - PSA ---- 21 September 2024:----6.02 ng/mL - Bladder scan PVR today - 28 mL PFSH Medical History Back pain BPH (benign prostatic hyperplasia) Frequency of micturition Odynophagia Painful arc syndrome of right shoulder Rotator cuff tear, right Pre-op examination Pain in right shoulder Rotator cuff injury Osteoarthritis of left hip Chronic pain syndrome Spondylosis of lumbar spine Abnormal MRI BPH (benign prostatic hyperplasia) Erectile dysfunction Carpal tunnel syndrome Cholelithiasis Vitamin D deficiency Obstructive sleep apnea Hypercholesterolemia GERD (gastroesophageal reflux disease) Mixed incontinence Surgical History S/P rotator cuff repair H/O shoulder surgery History of knee surgery History of endoscopy Hx of colonoscopy H/O carpal tunnel repair Hx of inguinal hernia repair Social History Household Members: Spouse Housing: House Are you a primary attending ambulatory care to a significant other at home: No Do you presently have visiting nurse or other home services: No Alcohol intake: current Alcohol intake frequency: former alcohol drinker Alcohol type: beer Patient Tobacco Use Status: Former Tobacco user Tobacco use type: Cigarette e-Cigarette/Vaping Use: Never Used Second Hand Smoke Exposure: Yes service: No Current occupational status: 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, 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) Cognitive needs: No Hearing needs: No Vision needs: Yes (Glasses) Review of Systems Const All systems reviewed & are unremarkable except as noted in HPI and below Reports no additional complaints Eyes Reports no additional complaints ENT Reports no additional complaints Card Reports no additional complaints Resp Reports no additional complaints GI Reports no additional complaints Reports as per HPI Musc Reports no additional complaints Skin/Breast Reports system reviewed and no additional complaints, except as documented Neuro Reports no additional complaints Psych Reports no additional complaints Endo Reports no additional complaints Boom/Lymph Reports no additional complaints Aller/Immun Reports no additional complaints Results Reviewed Results Reviewed: Prostate biopsy- Collected: 12/07/24 Location: [facility] Received: 12/07/24 Diagnosis Prostate, needle core biopsies: A. Left base lateral: Benign prostatic tissue; no malignancy identified. B. Left base medial: Benign prostatic tissue; no malignancy identified. C. Left mid lateral: Benign prostatic tissue; no malignancy identified. D. Left mid medial: Benign prostatic tissue; no malignancy identified. E. Left apex lateral: Benign prostatic tissue; no malignancy identified. F. Left apex medial: Benign prostatic tissue; no malignancy identified. G. Right base lateral: Benign prostatic tissue; no malignancy identified. H. Right base medial: Benign prostatic tissue; no malignancy identified. I. Right mid lateral: Benign prostatic tissue; no malignancy identified. J. Right mid medial: Benign prostatic tissue; no malignancy identified. K. Right apex lateral: Benign prostatic tissue; no malignancy identified. L. Right apex medial: Benign prostatic tissue; no malignancy identified. Clinical History Elevated PSA Microscopic Description A-L. Microscopic sections reviewed. Material Received A: Left base lateral B: Left base medial C: Left mid lateral D: Left mid medial Patient: Jack Costa Age/Sex: 59/M MR#: [id number] Page 1 of 3 Surgical Pathology [id number] E: Left apex lateral F: Left apex medial G: Right base lateral H: Right base medial I: Right mid lateral J: Right mid medial K: Right apex lateral L: Right apex medial Gross Description Received in twelve parts. Assessment & Plan Assessment & Plan (1) PSA elevation: Code(s): R97.20 - Elevated prostate specific antigen [PSA] Category: Medical (2) Nocturia more than twice per night: Code(s): R35.1 - Nocturia Category: Medical (3) BPH loc w urin obs/LUTS: Code(s): N40.1 - Benign prostatic hyperplasia with lower urinary tract symptoms Category: Medical Plan Continue tamsulosin. Start Proscar 5 mg daily. Follow-up in 6 months with PSA. Orders: Orders PSA,Total (Free>4and<10) 5 Months R97.20 - Elevated prostate specific antigen [PSA] Medications: New finasteride (Proscar) 5 mg PO DAILY 90 tabs 3RF Patient Instructions: The patient had an opportunity to ask questions regarding treatment plan. The patient expressed understanding and agreement with the above treatment plan. The patient is aware they should contact our office by phone for worsening of their current condition or the appearance of new symptoms. Compliance is encouraged with any medications and followup testing that is ordered. It is a privilege to be allowed the opportunity to participate in the urologic care of your patient. If you have any questions or concerns regarding treatment for the above conditions please do not hesitate to contact me. The office telephone contact is [phone]. This note is constructed in part using voice recognition software. While every effort has been made to ensure accuracy certified medical transcriptionist errors may have been included. Yours sincerely, Sofia Silva MD Coding Level of Care Code Est Pt Level 4 (14115) Complex EM visit Add On G2211 Diagnoses PSA elevation R97.20 Nocturia more than twice per night R35.1 BPH loc w urin obs/LUTS N40.1
== END 2025-01-25 08:43 | disposition home or self-care (01) ==
LOC: HO.HUSH 08:02
PROVIDERS: PCP Internal Medicine; Visit Provider Urology
DX: R97.20 Elevated prostate specific antigen [PSA] (principal); N40.1 Benign prostatic hyperplasia with lower urinary tract symptoms; R35.1 Nocturia; Z13.9 Encounter for screening, unspecified
CPT/HCPCS: 99214; G2211

== ENCOUNTER → 2025-01-25 08:01 | Outpatient (BNVA) | payer OTHER, SELFPAY | PROVIDERS: PCP Internal Medicine; Visit Provider Urology | DX: R97.20 Elevated prostate specific antigen [PSA] (principal); N40.1 Benign prostatic hyperplasia with lower urinary tract symptoms; R35.1 Nocturia | CPT/HCPCS: 81003; 99212 ==

== ENCOUNTER 2025-05-28 09:50 | Outpatient (AMB) | payer OTHER, SELFPAY ==
[2025-05-28 09:54] VITALS: BP 118/72; PULSE 79; O2SAT 99; BMI 26.9
--- NOTE | 2025-05-28 09:54 | A.OFFPC_ITS ---
Vital Signs 05/28/25 09:54 Height 5 ft 3 in Weight 152 lb BMI 26.9 BP 118/72 Blood Pressure Location Lt brachial Position Sitting Pulse 79 Pulse Source Pulse Oximeter Pulse Oximetry (%) 99 Oxygen Delivery Method Room Air Intake Visit Reasons: LBP, gerd Allergies raw vegetable (RAW VEGETABLE) Allergy (Intermediate, Verified 05/28/25 09:55) ITCHING Seasonal Allergies Allergy (Intermediate, Verified 05/28/25 09:55) Nasal congestion No Known Drug Allergies Allergy (Unknown, Verified 05/28/25 09:55) none Medication List - Last Reconciled 05/28/25 by Agustina Oconnell MD acetaminophen ER (Tylenol 8 Hour) 650 mg PO Q8H PRN ascorbate calcium (vitamin C) 500 mg PO DAILY aspirin 81 mg PO DAILY escitalopram oxalate 5 mg PO DAILY finasteride (Proscar) 5 mg PO DAILY omeprazole 40 mg PO DAILY 30 days sennosides (senna) 17.2 mg (2 x 8.6 mg) PO BEDTIME 30 days sildenafil (Viagra) 100 mg PO DAILY PRN simvastatin 20 mg PO BEDTIME tamsulosin (Flomax) 0.4 mg PO BEDTIME timolol maleate 0.5% drps ophthalmic (eye) tramadol 50 mg PO DAILY PRN valacyclovir 500 mg PO BID Tobacco use date assessed: 09/21/24 Dental Screening Dental Screen Date: 10/12/24 [facility] Medical History Back pain BPH (benign prostatic hyperplasia) Frequency of micturition Odynophagia Painful arc syndrome of right shoulder Rotator cuff tear, right Pre-op examination Pain in right shoulder Rotator cuff injury Osteoarthritis of left hip Chronic pain syndrome Spondylosis of lumbar spine Abnormal MRI BPH (benign prostatic hyperplasia) Erectile dysfunction Carpal tunnel syndrome Cholelithiasis Vitamin D deficiency Obstructive sleep apnea Hypercholesterolemia GERD (gastroesophageal reflux disease) Mixed incontinence Surgical History S/P rotator cuff repair H/O shoulder surgery History of knee surgery History of endoscopy Hx of colonoscopy H/O carpal tunnel repair Hx of inguinal hernia repair Social History Household Members: Spouse Housing: House Are you a primary rn care transition to a significant other at home: No Do you presently have visiting nurse or other home services: No Alcohol intake: current Alcohol intake frequency: former alcohol drinker Alcohol type: beer Patient Tobacco Use Status: Former Tobacco user Tobacco use type: Cigarette e-Cigarette/Vaping Use: Never Used Second Hand Smoke Exposure: Yes service: No Current occupational status: 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, 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) Cognitive needs: No Hearing needs: No Vision needs: Yes (Glasses) Questionnaire Thrive Questionnaire Date Thrive assessed: 01/16/25 I am a: Patient What is your living situation today?: I have a steady place to live Within the past 12 months, did the food you bought not last and you didn't have the money to get more?: Never true Within the past 12 months, did you worry whether your food would run out before you got money to buy more?: Never true Do you have trouble paying for medicines?: No Do you have trouble getting transportation to medical appointments?: No Do you have trouble paying your heating and electricity bill?: No Do you have trouble taking care of your child, family member or friend?: No Do you have trouble with day-to-day activities such as bathing, preparing meals, shopping, managing finances, etc.?: No Are you currently unemployed and looking for a job?: No Are you interested in more education?: No Please select the resources that you would like help with: None Currently or been in a relationship where the following occur: No concerns reported THRIVE Score: 0 KAROLINE-7 AMB Questionnaire KAROLINE-7 Date KAROLINE - 7 assessed: 09/21/24 Source: Developed by Drs. Anderson Johnson, Dee Dee Stewart, Paresh Durant and colleagues, with an educational bia from [employer]. Physical exam (Primary Care) Vital Signs: Last Vital Signs Pulse 79 05/28/25 09:54 BP 118/72 05/28/25 09:54 Pulse Ox 99 05/28/25 09:54 Oxygen Delivery Method Room Air 05/28/25 09:54 BMI result Body Mass Index 26.9 Tobacco/Smoking Status: Tobacco use Status Tobacco use date assessed 09/21/24 05/28/25 10:00 Patient Tobacco Use Status Former Tobacco user 05/28/25 10:00 Tobacco use type Cigarette 05/28/25 10:00 e-Cigarette/Vaping Use Never Used 05/28/25 10:00 Thrive Assessment: Date of Thrive Assessment Date Thrive assessed 01/16/25 05/28/25 10:00 Currently or been in a relationship where the following occur: No concerns reported Const General: alert; No acute distress Eyes Conjunctivae: conjunctivae normal Resp Auscultation: clear to auscultation bilaterally Cardio Rate: regular rate Rhythm: regular rhythm GI Inspection: Yes normal to inspection Extrem General: Yes normal to inspection and No edema Coding Level of Care Code Est Pt Level 4 (46121) Diagnoses Hypercholesterolemia E78.00 Impaired fasting glucose R73.01 Overweight (BMI 25.0-29.9) E66.3 Gastroesophageal reflux disease without esophagitis K21.9 Esophagitis presence: without esophagitis BPH loc w urin obs/LUTS N40.1 Spondylosis of lumbar spine M47.816 Obstructive sleep apnea G47.33 Generalized anxiety disorder F41.1 Assessment & Plan Assessment & Plan (1) Hypercholesterolemia: Code(s): E78.00 - Pure hypercholesterolemia, unspecified Category: Medical Plan: Avoid fried foods, chicken skin, eggs, butter margarine, pastries and meat. Be it pork or beef they have a lot of cholesterol LDL goal of less than 130 and triglyceride of less than 150 on simvastatin 20 mg at bedtime patient needs blood work (2) Impaired fasting glucose: Code(s): R73.01 - Impaired fasting glucose Category: Medical Plan: Decrease the amount of carbohydrate intake, pasta, bread, rice and potatoes are all sugar and that is aside from all the sweet stuff, remember that fruits are good but they are Sweet also. (3) Overweight (BMI 25.0-29.9): Code(s): E66.3 - Overweight Category: Medical Plan: Diet and exercise (4) GERD (gastroesophageal reflux disease): Code(s): K21.9 - Gastro-esophageal reflux disease without esophagitis Category: Medical Qualifiers: Esophagitis presence: without esophagitis Qualified Code(s): K21.9 - Gastro-esophageal reflux disease without esophagitis Plan: Avoid the foods that causes that usually spicy foods, tomato products, juices, coffee, soda and foods that your sensitive to. After eating do not lie down, allow 3-4 hours before in lie down. And keep the head of bed above 30 degrees to avoid the acid from going up. (5) BPH loc w urin obs/LUTS: Code(s): N40.1 - Benign prostatic hyperplasia with lower urinary tract symptoms Category: Medical Plan: Patient follows up with urology had biopsy done benign. Started on Proscar (6) Spondylosis of lumbar spine: Comment: June 2021. No acute fracture or subluxation. Decreased T1/T2 marrow signal throughout the visualized osseous structures, which can be seen in the setting of marrow reconversion. This can be seen in response to physiologic stimuli such as obesity, cigarette smoking, and heavy athletic training or a pathologic condition such as chronic hemolytic anemia and marrow replacing disorders. 2. Mild broad-based disc bulge at L3-L4 with a shallow posterior central disc protrusion and bilateral facet arthropathy which causes minimal central canal and mild bilateral neural foraminal stenosis. 3. Broad-based disc bulge at L4-L5 which is slightly asymmetric to the right. Along with bilateral facet arthropathy, this causes minimal central canal and mild bilateral neural foraminal stenosis. 4. Shallow disc bulges at L2-L3 and L5-S1 with bilateral facet arthropathy causing mild bilateral neural foraminal stenosis. Code(s): M47.816 - Spondylosis without myelopathy or radiculopathy, lumbar region Category: Medical Plan: Continue to keep self active. (7) Obstructive sleep apnea: Comment: CPAP cannot tolerate CPap Code(s): G47.33 - Obstructive sleep apnea (adult) (pediatric) Category: Medical Plan: CANNOT TOLERATE cpap (8) Generalized anxiety disorder: Code(s): F41.1 - Generalized anxiety disorder Category: Medical Plan: Continue with present therapy. Plan History of Present Illness The patient is a 59-year-old male presenting for a follow-up visit. The patient has a history of Gastroesophageal Reflux Disease (GERD), which has been managed with lifestyle modifications and medications. He also has hypercholesterolemia, with an LDL cholesterol level of 102 mg/dL, and is currently on simvastatin 20 mg at bedtime. The patient has obstructive sleep apnea, previously managed with CPAP therapy, which he could not tolerate. He experiences moderate sleep apnea with 34 episodes of apnea per hour, noted in a 2017 sleep study. The patient has a history of tubular adenoma of the colon, with the last colonoscopy performed in March 2023. He also has cholelithiasis and lumbar spondylosis, which contribute to his chronic back pain. The patient has impaired glucose tolerance, with a mildly elevated blood sugar level of 105 mg/dL. He is advised to manage this with diet and exercise. The patient has generalized anxiety disorder and benign prostatic hyperplasia ( BPH). He had a prostate biopsy in November 2024, which was benign, and is currently on tamsulosin and finasteride. The patient reports chronic back pain, which has been managed with tramadol and periodic injections. He recently underwent an MRI and is awaiting results. Health Maintenance - Cholesterol management: LDL goal of less than 130 mg/dL, triglyceride goal of less than 150 mg/dL, on simvastatin 20 mg at bedtime. - Diabetes management: Emphasis on diet and exercise to manage impaired glucose tolerance. - Prostate health: Follow-up with urology, prostate volume 55 cc, on tamsulosin and finasteride. - Vaccinations: Completed shingles vaccination series, advised on flu and COVID- 19 vaccinations. 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 - Exercise: Advised to continue staying active. Review of Systems - Musculoskeletal: Reports chronic back pain, hip pain, and arthritis in the left leg greater than the right. - Respiratory: Denies current use of CPAP for obstructive sleep apnea due to intolerance. Physical Exam Results - Labs: Normal blood count, mild leukopenia, elevated blood sugar at 105 mg/dL, elevated liver function tests, LDL cholesterol at 102 mg/dL. - Procedures: Prostate biopsy in November 2024, benign result. - Imaging: Recent MRI for chronic back pain, awaiting results. Plan Patient was informed and verbally consented to the use of an ambient scribe for clinic note documentation during this visit. 1. Gastroesophageal Reflux Disease (Gerd) The patient is advised to continue with lifestyle modifications and medications for GERD management. 2. Hypercholesterolemia The patient is on simvastatin 20 mg at bedtime with a goal to maintain LDL cholesterol below 130 mg/dL and triglycerides below 150 mg/dL. 3. Obstructive Sleep Apnea The patient is aware of the importance of managing sleep apnea due to its impact on cardiovascular health, but currently cannot tolerate CPAP therapy. 4. Tubular Adenoma Of The Colon The patient had a colonoscopy in March 2023 and is advised to follow up as per standard screening guidelines. 5. Cholelithiasis The patient is aware of the diagnosis of cholelithiasis and is advised to monitor for any symptoms of biliary colic. 6. Lumbar Spondylosis The patient is managing lumbar spondylosis with tramadol and periodic injections, and is awaiting MRI results for further evaluation. 7. Impaired Glucose Tolerance The patient is advised to manage impaired glucose tolerance with diet and exercise. 8. Generalized Anxiety Disorder The patient is aware of the diagnosis and is advised to continue with current management strategies. 9. Benign Prostatic Hyperplasia (Bph) The patient is on tamsulosin and finasteride for BPH management and is advised to continue follow-up with urology. 10. Erosive Esophagitis The patient is advised to continue with current management for erosive esophagitis. Discussion Notes During the visit, we discussed the management of the patient's hypercholesterolemia with simvastatin and the importance of maintaining LDL cholesterol below 130 mg/dL. We also reviewed the patient's obstructive sleep apnea and the challenges with CPAP therapy, emphasizing the cardiovascular risks associated with untreated sleep apnea. The patient was advised to continue follow-up with urology for BPH management and to monitor prostate health. Patient Instructions - Continue taking simvastatin 20 mg at bedtime to manage cholesterol levels. - Follow a healthy diet and exercise regularly to manage impaired glucose tolerance. - Continue follow-up with urology for prostate health monitoring. - Consider retesting for sleep apnea if symptoms persist or worsen. Orders: Orders Comprehensive Met. Panel Today R73.01 - Impaired fasting glucose Complete Blood Count Auto Diff Today R73.01 - Impaired fasting glucose Free T4 (Free Thyroxine) Today R73.01 - Impaired fasting glucose Hemoglobin A1c Today R73.01 - Impaired fasting glucose Thyroid Stimulating Hormone Today R73.01 - Impaired fasting glucose Lipid Panel Today E78.00 - Pure hypercholesterolemia, unspecified, R73.01 - Impaired fasting glucose Vitamin B12 and Folate Today R73.01 - Impaired fasting glucose Prostate Specific Antigen Scr Today R73.01 - Impaired fasting glucose Medications: Refilled tramadol 50 mg PO DAILY PRN 30 tabs 0RF pain M25.511 - Pain in right shoulder
--- OUTSIDE RECORDS SUMMARY | 2025-05-28 10:46 | XMS_ITS | Clinical Summary ---
Author Organization [employer] Address [address] [facility] [address] [place] [address] Care Team Providers Care Keno Writer / Runner Name Role Phone Unavailable Primary Care Provider [...] 12/26/2018 Dental X-Ray: Full Mouth 09/21/2021 09/20/2018 Dental X-Ray: Bitewings 03/04/2025 03/03/20 24, 09/13/2019, 09/20/2018 Tobacco Screening 03/27/2025 03/27/2024 COVID-19 Vaccine (3 - season) 2025 02/09/2021, 01/12/2021 Influenza Vaccine (#1) 2025 3, 07/27/2022, 09/24/2021, Additional history exists DTaP/Tdap/Td Vaccines (2 - Td or Tdap) [...]
--- OUTSIDE RECORDS SUMMARY | 2025-05-28 10:46 | XMS_ITS | Encounter Summary ---
Author Organization [employer] Address [address] [facility] [address] [place] [address] Care Team Providers Care Landfill Gas Plant Field Technician Name Role Phone Unavailable Primary Care Provider Unavailabl e Encounter Details Date Type Department Care Team (Latest Contact Info) Description 12/26/2018 Abstract [facility] CONVERSIONS Dental, Provider, DDS Social [...]
--- OUTSIDE RECORDS SUMMARY | 2025-05-28 10:46 | XMS_ITS | Encounter Summary ---
Author Organization [employer] Address [address] [facility] [address] [place] [address] Care Team Providers Care Equipment Monitor Phototypesetting Name Role Phone Unavailable Primary Care Provider Unavailabl e Encounter Details Date Type Department Care Team (Latest Contact Info) Description 09/13/2019 Abstract [facility] CONVERSIONS Dental, Provider, DDS Social History [...]
== END 2025-05-28 10:25 | disposition home or self-care (01) ==
LOC: HO.HMCH 09:51
PROVIDERS: PCP Internal Medicine; Visit Provider Internal Medicine
DX: E78.00 Pure hypercholesterolemia, unspecified (principal); R73.01 Impaired fasting glucose; E66.3 Overweight; K21.9 Gastro-esophageal reflux disease without esophagitis; N40.1 Benign prostatic hyperplasia with lower urinary tract symptoms; M47.816 Spondylosis without myelopathy or radiculopathy, lumbar region; G47.33 Obstructive sleep apnea (adult) (pediatric); F41.1 Generalized anxiety disorder

== ENCOUNTER → 2025-05-28 09:50 | Outpatient (BNVA) | payer OTHER, SELFPAY | PROVIDERS: PCP Internal Medicine; Visit Provider Internal Medicine | DX: K21.9 Gastro-esophageal reflux disease without esophagitis (principal); E78.00 Pure hypercholesterolemia, unspecified; R73.01 Impaired fasting glucose; E66.3 Overweight; N40.1 Benign prostatic hyperplasia with lower urinary tract symptoms; M47.816 Spondylosis without myelopathy or radiculopathy, lumbar region; G47.33 Obstructive sleep apnea (adult) (pediatric); F41.1 Generalized anxiety disorder; K80.20 Calculus of gallbladder without cholecystitis without obstruction; K20.80 Other esophagitis without bleeding; Z86.0101 Personal history of adenomatous and serrated colon polyps; Z99.89 Dependence on other enabling machines and devices; Z79.899 Other long term (current) drug therapy; Z68.26 Body mass index [BMI] 26.0-26.9, adult | CPT/HCPCS: 99212 ==

== ENCOUNTER 2025-07-04 09:38 | Outpatient (REF) | payer OTHER, SELFPAY ==
[2025-07-04 09:52] LABS: MANUAL DIFF FLAG NO
--- OUTSIDE RECORDS SUMMARY | 2025-07-04 10:50 | XMS_ITS | Encounter Summary ---
Author Organization [employer] Address [address] [facility] [address] [place] [address] Care Team Providers Care Chief Service Dispatcher Name Role Phone Unavailable Primary Care Provider Unavailabl e Encounter Details Date Type Department Care Team (Latest Contact Info) Description 12/26/2018 Abstract [facility] CONVERSIONS Dental, Provider, DDS Social [...]
--- OUTSIDE RECORDS SUMMARY | 2025-07-04 10:50 | XMS_ITS | Encounter Summary ---
Author Organization [employer] Address [address] [facility] [address] [place] [address] Care Team Providers Care Cloth Examiner Hand Name Role Phone Unavailable Primary Care Provider Unavailabl e Encounter Details Date Type Department Care Team (Latest Contact Info) Description 09/13/2019 Abstract [facility] CONVERSIONS Dental, Provider, DDS Social History Tobacco [...]
--- OUTSIDE RECORDS SUMMARY | 2025-07-04 10:50 | XMS_ITS | Clinical Summary ---
Author Organization [employer] Address [address] [facility] [address] [place] [address] Care Team Providers Care Sensor Specialist Name Role Phone Unavailable Primary Care Provider [...] Use Screening 1977 Hepatitis C Screening 1983 Pap Smear 1986 Cervical Cancer Screening 1995 [...] patient's age to complete this topic Hepatitis B Vaccines Aged Out No long er eligible [...]
[2025-07-04 10:57] LABS: Hematocrit 42.4 % (42.0-52.0); Hemoglobin 13.9 g/dl (14.0-18.0); Imm Gran Abs Auto 0.02 X10*3/uL (0.00-0.03); Imm Gran Pct Auto 0.5 % (0.0-0.4); Lymphocytes Absolute Auto 1.4 X10*3/uL (1.2-4.9); Mean Corpuscular HGB Conc 32.8 g/dl (31.0-36.0); Mean Corpuscular Hemoglobin 29.0 pg (27.0-33.0); Mean Corpuscular Volume 88.5 fL (80.0-98.0); NRBC Abs Auto 0.000 X10*3/uL (0.0-0.012); NRBC Pct Auto 0.0 /100WBC (0.0-0.2); Platelet Count 237 X10*3/uL (160-400); Red Blood Count 4.79 X10*6/uL (4.60-5.80); White Blood Count 4.1 X10*3/uL (4.8-10.8)
[2025-07-04 11:35] LABS: Alanine Aminotransferase 37 U/L (0-40); Albumin Level 4.3 g/dL (3.5-5.0); Alkaline Phosphatase 63 U/L (39-117); Anion Gap 6 (12-20); Aspartate Amino Transferase 28 U/L (5-37); Blood Urea Nitrogen 17 mg/dL (9-16); Calcium 8.9 mg/dL (8.4-10.2); Carbon Dioxide 29 mmol/L (22-29); Chloride 109 mmol/L (96-108); Cholesterol 190 mg/dL (<200); Estimated Glomerular Filt Rate > 60; HDL Cholesterol 43 mg/dL (>40); Potassium 4.4 mmol/L (3.3-5.1); Sodium 140 mmol/L (135-145); Total Protein 7.3 g/dL (6.5-8.0); Triglycerides 58 mg/dL (<150)
[2025-07-04 11:46] LABS: PSA,Total (Free>4and<10) 3.55 ng/mL (0.00-4.00)
[2025-07-04 11:51] LABS: Folate 11.7 ng/mL (> or = 4.0); Vitamin B12 971 pg/mL (200-900)
[2025-07-04 11:53] LABS: Free T4 (Free Thyroxine) 1.08 ng/dL (0.71-1.85); Thyroid Stimulating Hormone 0.97 uIU/mL (0.32-4.0)
== END 2025-07-04 09:39 | disposition home or self-care (01) ==
LOC: HO.LAB 09:38
PROVIDERS: Urology; Absent Provider Internal Medicine; PCP Internal Medicine; Visit Provider Nurse Practitioner Family
DX: R97.20 Elevated prostate specific antigen [PSA] (principal); R73.01 Impaired fasting glucose; E78.00 Pure hypercholesterolemia, unspecified
CPT/HCPCS: 36415; 80053; 80061; 82607; 82746; 83036; 84153; 84439; 84443; 85025

== ENCOUNTER 2025-07-23 07:22 | Outpatient (AMB) | payer OTHER, SELFPAY ==
--- NOTE | 2025-07-23 07:23 | A.OFFVIS_ITS ---
Intake Visit Reasons: 6M follow up/PSA Intake Note: Patient presents today for 6mo follow up Labs done 07/04/25 : Total PSA 3.55, PSA screen 3.82 Urology Medication:Sildenafil, Tamsulosin Blood Thinner:Aspirin Antibiotic Allergies:none LAST PVR:0ml Hide Stretcher Hand Required: No Hide Stretcher Hand Services: Hide Stretcher Hand Offered & Declined Information Interpreted: non-clinical & clinical Accompanied by: Self / Same As Patient Allergies raw vegetable (RAW VEGETABLE) Allergy (Intermediate, Verified 09/05/25 09:41) ITCHING Seasonal Allergies Allergy (Intermediate, Verified 09/05/25 09:41) Nasal congestion No Known Drug Allergies Allergy (Unknown, Verified 09/05/25 09:41) none Medication List - Last Reconciled 07/23/25 by Sofia Silva MD acetaminophen ER (Tylenol 8 Hour) 650 mg PO Q8H PRN ascorbate calcium (vitamin C) 500 mg PO DAILY aspirin 81 mg PO DAILY escitalopram oxalate 5 mg PO DAILY finasteride (Proscar) 5 mg PO DAILY omeprazole 40 mg PO DAILY 30 days sennosides (senna) 17.2 mg (2 x 8.6 mg) PO BEDTIME 30 days sildenafil (Viagra) 100 mg PO DAILY PRN simvastatin 20 mg PO BEDTIME tamsulosin (Flomax) 0.4 mg PO BEDTIME timolol maleate 0.5% drps ophthalmic (eye) tramadol 50 mg PO DAILY PRN valacyclovir 500 mg PO BID HPI Comments Details: 07/23/25-- History of Present Illness The patient is a 60-year-old individual presenting for follow-up on elevated PSA levels and management of benign prostatic hyperplasia. The patient has been experiencing elevated PSA levels, with the most recent measurement being 3.82 ng/mL on July 04, 2025. The patient is currently on finasteride and tamsulosin, which have contributed to a decrease in PSA levels and improvement in urinary symptoms. A prostate biopsy was performed on December 07, 2024, which returned benign results, confirming the diagnosis of benign prostatic hyperplasia. The patient reports improved nocturia, reduced from three times to once per night, and has decreased coffee intake to aid in symptom management. 30 minutes spent in review of records pertaining to this visit and including discussion with the patient and documentation of this visit. Results - Labs: PSA level of 3.82 ng/mL on July 04, 2025 - Diagnostics: Prostate biopsy on December 07, 2024, showing benign tissue Plan 1. Elevated Prostate-Specific Antigen (Psa) - Continue finasteride and tamsulosin therapy. - Plan to repeat PSA test in nine months. - Follow-up appointment scheduled in nine months. 2. Benign Prostatic Hyperplasia - Continue current medication regimen with finasteride and tamsulosin. - Monitor urinary symptoms and adjust treatment as necessary. 01/25/25--Jack Costa is here for follow-up post prostate biopsy that was performed on 12/07/2024 the path results came back benign tissue negative for malignancy, hands ultrasound guided, estimated prostate volume 55 mL. Plan continue tamsulosin 0.4 mg daily. We will start Proscar 5 mg daily. Follow-up with PSA prior in 6 months Jack is a 59-year-old male presenting with an elevated Prostate-Specific Antigen (PSA) level for evaluation. The history traces an upward trend in PSA values from 3.20 on 12 Jan 2023, increasing to 4.38 by 22 June 2024, and reaching a current level of 6.02 by 21 September 2024. The patient does not report any prior interventions concerning these elevated PSA levels. PMH - chronic back pain, uses tramadol and meloxicam prn. I have discussed that elevated PSA may indicate changes in the prostate including benign enlargement, cancer and an inflammatory condition. I have discussed Transrectal Ultrasound guided biopsy of the prostate. Discussed risks to include but not limited to pain, blood in stool, urine and semen, septicemia, need to repeat biopsy. He complains of urinary symptoms consistent with Benign Prostatic Hyperplasia (BPH), including nocturia, reporting urination thrice nightly, and increased frequency during the day, especially after coffee intake. He also experiences a notably weak urinary stream with intermittent flow. Urinary Symptoms Review - Nocturia three times per night - Increased urinary frequency every half-hour during daytime, exacerbated by coffee intake - Weak urinary stream with intermittent flow Results - Labs: - PSA ---- 12 Jan 2023:---3.20 ng/mL - PSA ---- 22 June 2024:---4.38 ng/mL - PSA ---- 21 September 2024:----6.02 ng/mL - Bladder scan PVR today - 28 mL [facility] Medical History (Updated 09/05/25 @ 10:17 by KIARA Colindres) Pre-op examination Back pain BPH (benign prostatic hyperplasia) Frequency of micturition Odynophagia Painful arc syndrome of right shoulder Rotator cuff tear, right Pain in right shoulder Rotator cuff injury Osteoarthritis of left hip Chronic pain syndrome Spondylosis of lumbar spine Abnormal MRI BPH (benign prostatic hyperplasia) Erectile dysfunction Carpal tunnel syndrome Cholelithiasis Vitamin D deficiency Obstructive sleep apnea Hypercholesterolemia GERD (gastroesophageal reflux disease) Mixed incontinence Surgical History S/P rotator cuff repair H/O shoulder surgery History of knee surgery History of endoscopy Hx of colonoscopy H/O carpal tunnel repair Hx of inguinal hernia repair Social History Household Members: Spouse Housing: House Are you a primary customer care specialist to a significant other at home: No Do you presently have visiting nurse or other home services: No Alcohol intake: current Alcohol intake frequency: former alcohol drinker Alcohol type: beer Patient Tobacco Use Status: Former Tobacco user Tobacco use type: Cigarette e-Cigarette/Vaping Use: Never Used Second Hand Smoke Exposure: Yes service: No Current occupational status: 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, stressed) Cognitive needs: No Hearing needs: No Vision needs: Yes (Glasses) Review of Systems Const All systems reviewed & are unremarkable except as noted in HPI and below Reports no additional complaints Eyes Reports no additional complaints ENT Reports no additional complaints Card Reports no additional complaints Resp Reports no additional complaints GI Reports no additional complaints Reports as per HPI Musc Reports no additional complaints Skin/Breast Reports system reviewed and no additional complaints, except as documented Neuro Reports no additional complaints Psych Reports no additional complaints Endo Reports no additional complaints Boom/Lymph Reports no additional complaints Aller/Immun Reports no additional complaints Telehealth Telehealth Telehealth Platform: Telephone Location of provider rendering services: practice address Location of patient: address on file Patient Identification confirmed using: Name, : Yes Telehealth method: voice only Patient verbally consented to treatment: Yes Patient verbally consented to billing insurance company: Yes Patient informed of any privacy concerns related to visit: Yes Minutes spent on Phone/Video with Pt.: 14 Results Reviewed Results Reviewed: Prostate biopsy- Collected: 12/07/24 Location: [facility] Received: 12/07/24 Diagnosis Prostate, needle core biopsies: A. Left base lateral: Benign prostatic tissue; no malignancy identified. B. Left base medial: Benign prostatic tissue; no malignancy identified. C. Left mid lateral: Benign prostatic tissue; no malignancy identified. D. Left mid medial: Benign prostatic tissue; no malignancy identified. E. Left apex lateral: Benign prostatic tissue; no malignancy identified. F. Left apex medial: Benign prostatic tissue; no malignancy identified. G. Right base lateral: Benign prostatic tissue; no malignancy identified. H. Right base medial: Benign prostatic tissue; no malignancy identified. I. Right mid lateral: Benign prostatic tissue; no malignancy identified. J. Right mid medial: Benign prostatic tissue; no malignancy identified. K. Right apex lateral: Benign prostatic tissue; no malignancy identified. L. Right apex medial: Benign prostatic tissue; no malignancy identified. Clinical History Elevated PSA Microscopic Description A-L. Microscopic sections reviewed. Material Received A: Left base lateral B: Left base medial C: Left mid lateral D: Left mid medial Patient: Jack Costa [facility]: 59[id number] MR#: [id number] Page 1 of 3 Surgical Pathology [id number] E: Left apex lateral F: Left apex medial G: Right base lateral H: Right base medial I: Right mid lateral J: Right mid medial K: Right apex lateral L: Right apex medial Gross Description Received in twelve parts. Assessment & Plan Assessment & Plan (1) PSA elevation: Code(s): R97.20 - Elevated prostate specific antigen [PSA] Category: Medical (2) Nocturia more than twice per night: Code(s): R35.1 - Nocturia Category: Medical (3) BPH loc w urin obs/LUTS: Code(s): N40.1 - Benign prostatic hyperplasia with lower urinary tract symptoms Category: Medical Plan Plan 1. Elevated Prostate-Specific Antigen (Psa) - Continue finasteride and tamsulosin therapy. - Plan to repeat PSA test in nine months. - Follow-up appointment scheduled in nine months. 2. Benign Prostatic Hyperplasia - Continue current medication regimen with finasteride and tamsulosin. - Monitor urinary symptoms and adjust treatment as necessary. Medications: Refilled tamsulosin (Flomax) 0.4 mg PO BEDTIME 90 caps 3RF finasteride (Proscar) 5 mg PO DAILY 90 tabs 3RF Patient Instructions: The patient had an opportunity to ask questions regarding treatment plan. The patient expressed understanding and agreement with the above treatment plan. The patient is aware they should contact our office by phone for worsening of their current condition or the appearance of new symptoms. Compliance is encouraged with any medications and followup testing that is ordered. It is a privilege to be allowed the opportunity to participate in the urologic care of your patient. If you have any questions or concerns regarding treatment for the above conditions please do not hesitate to contact me. The office telephone contact is [phone]. This note is constructed in part using voice recognition software. While every effort has been made to ensure accuracy bottle blowing machine tender errors may have been included. Yours sincerely, Sofia Silva MD Scribe Plan - Not visible on output: Patient was informed and verbally consented to the use of an ambient scribe for clinic note documentation during this visit. Coding Level of Care Code Tele Est Pt Level 4 (28076) Diagnoses PSA elevation R97.20 Nocturia more than twice per night R35.1 BPH loc w urin obs/LUTS N40.1
--- OUTSIDE RECORDS SUMMARY | 2025-07-23 07:25 | XMS_ITS | Encounter Summary ---
Author Organization [employer] Address [address] [facility] [address] [place] [address] Care Team Providers Care Room Service Attendant Name Role Phone Unavailable Primary Care Provider Unavailabl e Encounter Details Date Type Department Care Team (Latest Contact Info) Description 09/13/2019 Abstract [facility] CONVERSIONS Dental, Provider, DDS Social History [...]
--- OUTSIDE RECORDS SUMMARY | 2025-07-23 07:25 | XMS_ITS | Encounter Summary ---
Author Organization [employer] Address [address] [facility] [address] [place] [address] Care Team Providers Care Impregnating Machine Operator Name Role Phone Unavailable Primary Care Provider Unavailabl e Encounter Details Date Type Department Care Team (Latest Contact Info) Description 12/26/[address] [facility] CONVERSIONS Dental, Provider, [...]
--- OUTSIDE RECORDS SUMMARY | 2025-07-23 07:25 | XMS_ITS | Clinical Summary ---
Author Organization [employer] Address [address] [facility] [address] [place] [address] Care Team Providers Care Night Club Manager Name Role Phone Unavailable Primary Care [...]
== END 2025-07-23 08:49 | disposition home or self-care (01) ==
LOC: HO.HUSH 07:22
PROVIDERS: PCP Internal Medicine; Visit Provider Urology
DX: R97.20 Elevated prostate specific antigen [PSA] (principal); N40.1 Benign prostatic hyperplasia with lower urinary tract symptoms; R35.1 Nocturia
CPT/HCPCS: 99214